=== PATIENT | female | born 1935 | race African-American/Black ===

== ENCOUNTER 2016-07-28 16:50 | Outpatient (CLI) ==
[2016-05-11 12:54] VITALS: BMI 26.9
[2016-07-28 17:12] LABS: BILIRUBIN,URINE 1+ (NEGATIVE); KETONES,URINE Negative (NEGATIVE); LEUKOCYTE ESTERASE ,URINE 1+ (NEGATIVE); NITRITE,URINE Negative (NEGATIVE); PROTEIN,URINE 1+ (NEGATIVE); URINE, BLOOD Negative (NEGATIVE)
[2016-07-28 17:14] LABS: ADD URINE MICROSCOPIC YES
[2016-07-28 17:15] LABS: BACTERIA,URINE TRACE (NOT PRESENT)
== END 2016-07-28 16:51 | disposition home or self-care (01) ==
LOC: LAB 16:50
PROVIDERS: ATTEND Emergency Medicine
DX: N39.0 Urinary tract infection, site not specified (principal); R41.0 Disorientation, unspecified
CPT/HCPCS: 81001; 87086

== ENCOUNTER 2016-09-04 21:35 | Observation (INO) | payer OTHER ==
[2016-09-04] MEDS ORDERED: SODIUM CHLORIDE 1,000 ML IV STA (21:38)
[2016-09-04 21:47] VITALS: BMI 27.1
[2016-09-04 22:11] LABS: BASOPHILS % (AUTO) 0.7 % (0.0-3.0); EOSINOPHILS # (AUTO) 0.1 K/ul (0.0-0.7); EOSINOPHILS % (AUTO) 1.8 % (0.0-7.0); HEMATOCRIT 36.5 % (37.0-47.0); HEMOGLOBIN 12.2 g/dl (12.0-16.0); LYMPHOCYTES # (AUTO) 0.9 K/uL (0.60-3.4); LYMPHOCYTES % (AUTO) 32.5 (10.0-50.0); MEAN CORPUSCULAR HEMOGLOBIN 33.5 pg (27.0-31.0); MEAN CORPUSCULAR HGB CONC 33.4 (31.8-35.4); MEAN CORPUSCULAR VOLUME 100.3 fl (81.0-99.0); MONOCYTES # (AUTO) 0.3 K/uL (0.4-2.0); MONOCYTES % (AUTO) 11.4 (0-10); NEUTROPHILS # (AUTO) 1.5 K/ul (2.0-6.9); NEUTROPHILS % (AUTO) 53.6; PLATELET COUNT 133 10^3/uL (140-440); RED BLOOD COUNT 3.64 10^6/ul (4.20-5.40)
[2016-09-04 22:19] LABS: BILIRUBIN,URINE Negative (NEGATIVE); KETONES,URINE Negative (NEGATIVE); LEUKOCYTE ESTERASE ,URINE Negative (NEGATIVE); NITRITE,URINE Negative (NEGATIVE); PROTEIN,URINE Negative (NEGATIVE); URINE, BLOOD Negative (NEGATIVE)
[2016-09-04 22:20] LABS: ADD URINE MICROSCOPIC NO
--- NOTE | 2016-09-04 22:29 | CT ---
EXAM: CT scan brain without contrast HISTORY: Encephalopathy COMPARISON: CT scan brain 05/11/2016 FINDINGS: Contiguous axial images obtained from the skull base to the convexities without contrast utilizing 5-mm collimation. Sagittal and coronal reconstructions were imaged and reviewed. The jeanette tricles and CSF spaces are prominent compatible with age appropriate atrophy. There is periventricu lar hypodensity noted compatible with chronic microvascular disease.. Encephalomalacia is seen with in the medial right occipital lobe. Several air cells are opacified posteriorly in the right ethmoi d sinus. IMPRESSION: Age appropriate atrophy with chronic microvascular disease. Benign sinus disease.
[2016-09-04 22:30] LABS: ALBUMIN 3.7 g/dL (3.4-5.0); ALBUMIN/GLOBULIN RATIO 1.37; ANION GAP 13.3; BILIRUBIN,TOTAL 2.75 mg/dL (0.00-1.20); BUN/CREATININE RATIO 10.69; CALCIUM 10.2 mg/dL (8.2-10.2); CREATININE 1.59 mg/dL (0.60-1.30); POTASSIUM 4.3 mmol/L (3.5-5.10); TOTAL PROTEIN 6.4 g/dL (5.8-8.1)
--- NOTE | 2016-09-04 22:38 | CT ---
EXAM: CT scan thorax without contrast HISTORY: Cough fever COMPARISON: CT scan thorax 02/12/2016 FINDINGS: Contiguous axial images obtained through the thorax without contrast utilizing 5-mm colli mation. Sagittal and coronal reconstructions were imaged and reviewed. The thoracic inlet is unrem arkable. The cardiac silhouette is enlarged without pericardial effusion. There is a dual lead pac emaker. There is no evidence of a pericardial effusion.. There is coronary artery calcification. There is a stable 6 mm nodule at the left lung base. There has been prior cholecystectomy.. Review of bone windows reveals degenerative changes in the mid lower thoracic spine. IMPRESSION: Cardiomegaly with coronary artery calcification. Stable small nodule left lung base. No evidence of infiltrate or effusion. Prior cholecystectomy
[2016-09-04 22:41] LABS: ABG BASE EXCESS 0 (-2.0-2.0); ABG HCO3 23.1 (22.0-26.0); ABG PCO2 30.6 mmHg (35-45); ABG PH 7.487 (7.35-7.45); ABG TCO2 24 (22.0-28.0)
[2016-09-04 22:57] LABS: TROPONIN I 0.207 ng/ml (0.0000-0.4000)
[2016-09-04 22:59] LABS: CREATINE KINASE MB 2.5 ng/ml (0.0-3.6)
--- NOTE | 2016-09-04 23:03 | ED.PDOC ---
General ED Provider: Dr. CORINNE CALLOWAY-ER Chief Complaint: Abdominal Pain Stated Complaint: shes is not eating or drinking--her belly hurts Time Seen by Physician: 21:40 Mode of Arrival: Wheelchair Information Source: Patient, Family Exam Limitations: No limitations Primary Care Provider: MARK WATSON Nursing and Triage Documentation Reviewed and Agree: Yes GI Complaint Exam - Abdominal Pain Complaint/Exam Onset: Gradual Duration: 24hrs Symptoms Are: Still present Timing: Constant Initial Severity: Mild Current Severity: Mild Location of Pain: Diffuse Character: Reports: Dull Aggravating: Reports: None Alleviating: Reports: Spontaneous resolution Associated Signs and Symptoms: Reports: Fever, Decreased urine output, Decreased appetite, Nausea. Denies: Diaphoresis, Cough, Chest pain, Dizziness, Back pain, Constipation, Blood in stool, Dysuria, Urinary frequency, Vaginal bleeding, Vaginal discharge, Vomiting, Diarrhea, Sore throat, Decreased activity Related Surgical History: Reports: Cholecystectomy Patient Rh Status: Unknown Abdominal Findings: Present: None Differential Diagnoses: Bowel Obstruction, Constipation, Diverticulitis, Pancreatitis, Ureteral Stone, UTI Quality Indicator For Non-Traumatic Chest Pain/Syncope: EKG Performed Review of Systems - Review Of Systems Constitutional: Reports: Fever Eyes: Reports: No symptoms Ears, Nose, Mouth, Throat: Reports: No symptoms Respiratory: Reports: No symptoms Cardiac: Reports: No symptoms GI: Reports: Abdominal pain, Nausea, Poor appetite, Poor fluid intake : Reports: No symptoms Musculoskeletal: Reports: No symptoms Skin: Reports: No symptoms Neurological: Reports: No symptoms Endocrine: Reports: No symptoms Hematologic/Lymphatic: Reports: No symptoms All Other Systems: Reviewed and Negative Past Medical History - Past Medical History Previously Healthy: No Endocrine: Reports: DM 2, Dyslipidemia Cardiovascular: Reports: CAD, [place], Hypertension, CHF, Other (12/10/15 seen at [facility]- noncardiac chest pain) Respiratory: Reports: None, COPD Hematological: Reports: Anemia Gastrointestinal: Reports: GERD Genitourinary: Reports: Kidney stones, CKD Neuro/Psych: Reports: None, Anxiety Musculoskeletal: Reports: Arthritis Cancer: Reports: None Last Menstrual Period: PT HAS HAD A HYSTERECTOMY Other Pertinent Past Medical History: NEUROPATHY,BORDERLINE DIABETES,WITH ACCU CHECKS DAILY - Surgical History General Surgical History: Reports: Hysterectomy, Cholecystectomy, Pacemaker ( PACEMAKER 1998 WITH BATTERY CHANGE X2 AT [facility], MOST RECENT IS FEBRUARY 2015), Orthopedic (left knee), Other (BILATEREAL CATARACT ) - Family History Family History: Reports: Unknown - Social History Smoking Status: Never smoker Hx Substance Use: No Alcohol Screening: None Lives: With family - Immunizations Tetanus Shot up to Date: (UNKNOWN) Physical Exam - Physical Exam Appearance: Well-appearing, No pain distress, Well-nourished Eyes: GERARDO ENT: Ears normal Respiratory: Airway patent Cardiovascular: RRR GI/: Soft Musculoskeletal: Normal strength, ROM intact, No edema, No calf tenderness Skin: Warm, Dry, Normal color Neurological: Sensation intact Psychiatric: Affect appropriate, Mood appropriate Interpretation - Radiology Interpretation Radiology Interpretation By: Radiologist Radiology Results: Negative Exam Interpreted: CT Scan - EKG Interpretation Time of EKG #1: 23:03 Rate: Normal Rhythm: Sinus Ectopy: None [place]: NL ST Segment: Normal Physician Notification - Case Discussed Physician Notified: dr duran Time of Notification: 23:07 Critical Care Note - Critical Care Note Total Time (mins): 0 Course - Course Hematology/Chemistry: 09/04/16 22:05 09/04/16 22:05 Orders, Labs, Meds: Lab Review 09/04/16 09/04/16 21:36 22:05 WBC 2.80 L RBC 3.64 L Hgb 12.2 Hct 36.5 L MCV 100.3 H MCH 33.5 H MCHC 33.4 RDW Coeff of Juan 14.1 Plt Count 133 L Immature Gran % (Auto) 0.0 Neut % (Auto) 53.6 Lymph % (Auto) 32.5 [place] % (Auto) 11.4 H Eos % (Auto) 1.8 Baso % (Auto) 0.7 Immature Gran # (Auto) 0.0 Neut # 1.5 L Lymph # 0.9 [place]enton # 0.3 L Eos # 0.1 Baso # 0.0 D-Dimer 0.82 Puncture Site Lb O2 Saturation 98.0 ABG pH 7.487 H ABG pCO2 30.6 L ABG pO2 93.0 ABG HCO3 23.1 ABG Total CO2 24 ABG Base Excess 0 Chon Test + FiO2 % 21.0 Sodium 143 Potassium 4.3 Chloride 109 H Carbon Dioxide 25 Anion Gap 13.3 BUN 17 Creatinine 1.59 H Estimated GFR (MDRD) 38.00 BUN/Creatinine Ratio 10.69 Glucose 90 Calcium 10.2 Total Bilirubin 2.75 H AST 36 ALT 24 Alkaline Phosphatase 155 H Ammonia 40 H Total Creatine Kinase 123 CK-MB (CK-2) 2.5 CK-MB (CK-2) % 2.68208 Troponin I 0.2070 Total Protein 6.4 Albumin 3.7 Globulin 2.7 Albumin/Globulin Ratio 1.37 Amylase 27 Lipase 12 Urine Color Yellow Urine Clarity Clear Urine pH 5.0 Ur Specific Crosby 1.015 Urine Protein Negative Urine Glucose (UA) Negative Urine Ketones Negative Urine Blood Negative Urine Nitrite Negative Urine Bilirubin Negative Urine Urobilinogen 0.2 Ur Leukocyte Esterase Negative Orders Category Date Time Status ABG DRAW REQUEST Stat CARDIO 09/04/16 21:37 Ordered EKG-(ED ONLY) Stat CARDIO 09/04/16 21:36 Ordered Assembly Loader [ED PATIENT SUPPORT PARTNER APPLIED] .ONCE EMERGENCY 09/04/16 21:39 Active IV [ED IV/MEDIPORT/POWERPORT] .ONCE EMERGENCY 09/04/16 21:38 Active ABG Stat LAB 09/04/16 21:36 Completed AMMONIA Stat LAB 09/04/16 22:05 Completed AMYLASE Stat LAB 09/04/16 22:05 Completed BLOOD CULTURE Stat LAB 09/04/16 22:05 Received CBC W/ AUTO DIFF Stat LAB 09/04/16 22:05 Completed COMPREHENSIVE METABOLIC PANEL Stat LAB 09/04/16 22:05 Completed CREATINE KINASE Stat LAB 09/04/16 22:05 Completed D-DIMER Stat LAB 09/04/16 22:05 Completed FLU A & B RAPID TEST [RAPID FLU A/B] Stat LAB 09/04/16 22:10 Ordered LIPASE Stat LAB 09/04/16 22:05 Completed TROPONIN I Stat LAB 09/04/16 22:05 Completed URINALYSIS C & S IF INDICATED Stat LAB 09/04/16 22:05 Completed VITAMIN B12 Stat LAB 09/04/16 22:15 Received 0.9 % Sodium Chloride [Saline Flush] MEDS 09/04/16 21:38 Ordered 1 syr IVF PRN PRN Sodium Chloride 0.9% [Sodium Chloride] 1,000 ml MEDS 09/04/16 21:38 Active IV 100 mls/hr CT ABDOMEN/PELVIS WO CONTRAST Stat RADS 09/04/16 21:[address] CHEST W/O CONTRAST Stat RADS 09/04/16 21:[address] HEAD W/O CONTRAST Stat RADS 09/04/16 21:38 Completed Medications Generic Name Dose Route Start Last Admin Trade Name Freq PRN Reason Stop Dose Admin Sodium Chloride 1,000 mls @ 100 mls/hr 09/04/16 21:38 09/04/16 22:46 Sodium Chloride IV 09/05/16 07:37 100 mls/hr .Q10H STA Administration Sodium Chloride 1 syr 09/04/16 21:38 09/04/16 22:47 Saline Flush IVF 1 syr PRN PRN Administration To flush IV Vital Signs: Temp Pulse Resp BP Pulse Ox 09/04/16 21:36 100 F H 72 20 102/58 L 98 Departure - Departure Time of Disposition: 23:07 Disposition: PLACED OBSERVATION Discharge Problem: Abdominal pain, Encephalopathy Fever Qualifiers: Fever type: due to other condition Qualifier Code: (R50.81) Fever presenting with conditions classified elsewhere Instructions: Fever in Adults (ED) Condition: Stable Pt referred to PMD for follow-up: Yes Allergies/Adverse Reactions: Allergies Penicillins Adverse Reaction (Verified 09/04/16 21:47) pneumococcal vaccine Adverse Reaction (Verified 09/04/16 21:48) flu vaccine Adverse Reaction (Unknown, Uncoded 09/04/16 21:47) Home Medications: Ambulatory Orders Alprazolam [Xanax] 0.25 mg PO BEDTIME 02/11/16 Cetirizine HCl [All Day Allergy] 10 mg PO BEDTIME 02/11/16 Clopidogrel Bisulfate [Clopidogrel] 75 mg PO DAILY 02/11/16 Ferrous Sulfate 325 mg PO BID 02/11/16 Furosemide [Lasix] 40 mg PO DAILY 02/11/16 Ipratropium/Albuterol Neb [Duoneb] 1 vial NEB RTQ4H PRN 02/11/16 Pantoprazole Sodium [Protonix] 40 mg PO BIDAC 02/11/16 Potassium Chloride [K-Dur] 20 meq PO QID 02/11/16 Rosuvastatin Calcium [Crestor] 10 mg PO BEDTIME 02/11/16 Sucralfate [Carafate] 1 gm PO ACHS 02/11/16 Aspirin [Aspirin EC] 81 mg PO DAILYWM 02/12/16 Nitroglycerin [Nitrostat] 0.3 mg SL PRN PRN 03/08/16 Triamterene/Hydrochlorothiazid [Maxzide 37.5 mg-25 mg Tablet] 1 each PO DAILY PRN 03/31/16 Hydrocodone/Acetaminophen [Robert 5-325 Tablet] 1 each PO BID 05/11/16 Lisinopril [Zestril] 2.5 mg PO DAILY #30 tablet 05/12/16 Calcium Carbonate/Vitamin D3 [Calcium 500-Vit D3 600 Tablet] 1 each PO WEEKLY Carvedilol 3.125 mg PO DAILY 09/04/16 Disposition Discussed With: Patient, Family
--- NOTE | 2016-09-04 23:06 | CT ---
EXAM: CT scan abdomen pelvis without contrast HISTORY: Abdominal pain COMPARISON: CT scan abdomen pelvis 03/16/2016 FINDINGS: Contiguous axial images obtained from lung bases to the symphysis pubis without contrast utilizing collimation. Sagittal coronal reconstructions were imaged and reviewed.. The heart is en larged with small pericardial effusion measuring 11 mm. There has been a prior cholecystectomy.. T he common bile duct measures 9.5 mm. The liver pancreas spleen and adrenal glands have normal unenh anced CT appearance. The kidneys are morphologically normal. Atherosclerotic changes are seen invo lving the aorta without aneurysm formation. Free fluid is seen in the dependent pelvis. . There is moderate anasarca. Degenerative changes are seen within the lower thoracic and lumbar spine with a chronic-appearing central depression superior endplate of L4. Impression: ASVD without aneurysm. Free fluid is seen in the dependent pelvis. Prior cholecystectomy. ASVD without aneurysm. Moderate anasarca.
[2016-09-04] MEDS ORDERED: TYLENOL PO PRN (23:08)
[2016-09-04] MEDS ORDERED: NON-FORMULARY MEDICATION (Nitroglycerin [Nitrostat] 0.3 MG) SL PRN ×22 (23:11)
[2016-09-04] MEDS ORDERED: IPRATROPIUM NEB PRN ×21 (23:11)
[2016-09-04] MEDS ORDERED: ALBUTEROL NEB PRN ×21 (23:11)
[2016-09-04 23:17] LABS: FLU INTERNAL QC INTERNAL QC VALID; RAPID FLU A NEGATIVE (NEGATIVE); RAPID FLU B NEGATIVE (NEGATIVE)
[2016-09-04] MEDS ORDERED: SODIUM CHLORIDE 1,000 ML IV SCH (23:30)
[2016-09-04] MEDS ORDERED: LEVAQUIN 250 MG in PREMIX 50 ML D5W 1 BAG IV SCH (23:30)
[2016-09-05] MEDS ORDERED: LEVAQUIN 50 ML IV ONE (01:00)
[2016-09-05] MEDS ORDERED: FLAGYL 500 MG/100 ML 100 ML IV ONE (04:10)
[2016-09-05] MEDS: FLAGYL 500 MG/100 ML 250 MG in PREMIX 100 ML NS 1 BAG IV SCH ×3 (04:14→21:56)
[2016-09-05] MEDS ORDERED: NON-FORMULARY MEDICATION (Pantoprazole Sodium [Protonix] 40 MG) PO SCH ×22 (06:30)
[2016-09-05] MEDS ORDERED: NON-FORMULARY MEDICATION (Sucralfate [Carafate] 1 GM) PO SCH (06:30)
[2016-09-05] MEDS ORDERED: FUROSEMIDE 40 MG PO SCH ×44 (06:30→09:00)
[2016-09-05] MEDS ORDERED: DUONEB NEB PRN (07:08)
[2016-09-05] MEDS ORDERED: ACETAMINOPHEN PO SCH (09:00)
[2016-09-05] MEDS ORDERED: NON-FORMULARY MEDICATION (Potassium Chloride [K-Dur] 20 MEQ) PO SCH ×22 (09:00)
[2016-09-05] MEDS ORDERED: CARVEDILOL 3.125 MG PO SCH (09:00)
[2016-09-05] MEDS ORDERED: HYDROCODONE PO SCH (09:00)
[2016-09-05] MEDS ORDERED: NON-FORMULARY MEDICATION (Clopidogrel Bisulfate [Clopidogrel] 75 MG) PO SCH ×22 (09:00)
[2016-09-05 09:57] LABS: BASOPHILS % (AUTO) 0.7 % (0.0-3.0); EOSINOPHILS # (AUTO) 0.1 K/ul (0.0-0.7); EOSINOPHILS % (AUTO) 3.4 % (0.0-7.0); HEMATOCRIT 32.7 % (37.0-47.0); LYMPHOCYTES % (AUTO) 34.8 (10.0-50.0); MEAN CORPUSCULAR HEMOGLOBIN 33.7 pg (27.0-31.0); MEAN CORPUSCULAR HGB CONC 33.6 (31.8-35.4); MEAN CORPUSCULAR VOLUME 100.3 fl (81.0-99.0); MONOCYTES # (AUTO) 0.4 K/uL (0.4-2.0); MONOCYTES % (AUTO) 13.1 (0-10); NEUTROPHILS # (AUTO) 1.4 K/ul (2.0-6.9); PLATELET COUNT 113 10^3/uL (140-440); RED BLOOD COUNT 3.26 10^6/ul (4.20-5.40)
[2016-09-05 10:15] LABS: ALBUMIN 3.1 g/dL (3.4-5.0); ALBUMIN/GLOBULIN RATIO 1.35; ANION GAP 12.8; BILIRUBIN,TOTAL 2.78 mg/dL (0.00-1.20); BUN/CREATININE RATIO 12.67; CALCIUM 9.4 mg/dL (8.2-10.2); CREATININE 1.42 mg/dL (0.60-1.30); POTASSIUM 3.8 mmol/L (3.5-5.10); TOTAL PROTEIN 5.4 g/dL (5.8-8.1)
[2016-09-05] MEDS: NON-FORMULARY MEDICATION (Lisinopril [Zestril] 2.5 MG) PO SCH ×22 (10:23)
[2016-09-05] MEDS: ASPIRIN EC PO SCH (10:25)
[2016-09-05] MEDS: K-DUR PO SCH ×4 (10:28→20:21)
[2016-09-05] MEDS: NON-FORMULARY MEDICATION (Ferrous Sulfate [Ferrous Sulfate] 325 MG) PO SCH ×44 (10:29→20:20)
[2016-09-05] MEDS: NORCO 5-325 PO SCH ×2 (10:30→20:19)
[2016-09-05] MEDS: PLAVIX PO SCH (10:32)
[2016-09-05] MEDS: COREG PO SCH (10:34)
[2016-09-05] MEDS: LOVENOX SUBCUT SCH (10:34)
[2016-09-05] MEDS: CARAFATE PO SCH ×3 (10:44→20:21)
[2016-09-05] MEDS ORDERED: SODIUM CHLORIDE 1,000 ML IV SCH (11:55)
[2016-09-05] MEDS ORDERED: ZOFRAN 4 MG/2 ML IVP PRN (15:54)
[2016-09-05] MEDS: PROTONIX PO SCH (16:52)
[2016-09-05] MEDS ORDERED: NON-FORMULARY MEDICATION (Rosuvastatin Calcium [Crestor] 10 MG) PO SCH ×22 (21:00)
[2016-09-05] MEDS ORDERED: XANAX PO SCH (21:00)
[2016-09-05] MEDS ORDERED: CRESTOR PO SCH (21:00)
[2016-09-05] MEDS ORDERED: ALPRAZOLAM 0.25 MG PO SCH ×22 (21:00)
[2016-09-05] MEDS ORDERED: LEVAQUIN 250 MG in PREMIX 50 ML D5W 1 BAG IV SCH (21:00)
[2016-09-06] MEDS: FLAGYL 500 MG/100 ML 250 MG in PREMIX 100 ML NS 1 BAG IV SCH ×2 (04:27→13:48)
[2016-09-06 05:28] LABS: BASOPHILS % (AUTO) 0.4 % (0.0-3.0); EOSINOPHILS # (AUTO) 0.1 K/ul (0.0-0.7); EOSINOPHILS % (AUTO) 2.3 % (0.0-7.0); HEMATOCRIT 34.1 % (37.0-47.0); HEMOGLOBIN 11.3 g/dl (12.0-16.0); IMMATURE GRANULOCYTE % (AUTO) 0.4 % (0.0-5.0); LYMPHOCYTES % (AUTO) 37.1 (10.0-50.0); MEAN CORPUSCULAR HEMOGLOBIN 33.3 pg (27.0-31.0); MEAN CORPUSCULAR HGB CONC 33.1 (31.8-35.4); MEAN CORPUSCULAR VOLUME 100.6 fl (81.0-99.0); MONOCYTES # (AUTO) 0.4 K/uL (0.4-2.0); NEUTROPHILS # (AUTO) 1.2 K/ul (2.0-6.9); NEUTROPHILS % (AUTO) 45.8; PLATELET COUNT 118 10^3/uL (140-440); RED BLOOD COUNT 3.39 10^6/ul (4.20-5.40); WHITE BLOOD COUNT 2.64 K/ul (4.6-10.2)
[2016-09-06] MEDS: PROTONIX PO SCH ×2 (05:32→17:57)
[2016-09-06] MEDS: CARAFATE PO SCH ×3 (05:33→17:57)
[2016-09-06 05:47] LABS: ALBUMIN/GLOBULIN RATIO 1.2; ANION GAP 9.5; BILIRUBIN,TOTAL 2.29 mg/dL (0.00-1.20); CALCIUM 9.3 mg/dL (8.2-10.2); CREATININE 1.4 mg/dL (0.60-1.30); POTASSIUM 4.5 mmol/L (3.5-5.10); TOTAL PROTEIN 5.5 g/dL (5.8-8.1)
[2016-09-06] MEDS ORDERED: LASIX TAB PO SCH (06:30)
[2016-09-06] MEDS: NORCO 5-325 PO SCH (08:50)
[2016-09-06] MEDS: LOVENOX SUBCUT SCH (08:51)
[2016-09-06] MEDS: ASPIRIN EC PO SCH (08:51)
[2016-09-06] MEDS: COREG PO SCH (08:51)
[2016-09-06] MEDS: K-DUR PO SCH ×3 (08:52→17:57)
[2016-09-06] MEDS: NON-FORMULARY MEDICATION (Ferrous Sulfate [Ferrous Sulfate] 325 MG) PO SCH ×22 (08:52)
[2016-09-06] MEDS: NON-FORMULARY MEDICATION (Lisinopril [Zestril] 2.5 MG) PO SCH ×22 (08:52)
[2016-09-06] MEDS: PLAVIX PO SCH (08:53)
[2016-09-06 14:46] VITALS: BP 110/62; TEMP 97.3
--- NOTE | 2016-09-09 10:53 | PN ---
DATE OF SERVICE: 09/05/16 SUBJECTIVE: The patient's daughter brought here. because the patient had a somewhat altered mental status also complaining of midabdominal pain around the naval area, also states has pain with the urination. The patient gets similar episodes when she gets a urinary tract infection. That is the reason the patient's daughter was worried and brought her to the emergency room for the evaluation. The patient is awake, alert and oriented. Just some weakness. She was seen by Dr. Stoner in the emergency room CT no acute findings, CT of abdominal and pelvis moderate anasarca but no acute findings. CT chest cardiomegaly with the coronary artery calcification, small nodules on the left lung base, no acute findings. Labs: Leukopenia, d-dimer is negative, ABG are fine, BUN and creatinine is normal, creatinine is mildly elevated which is normal for the patient with estimated GFR of 38. At that time the patient is admitted to the observation. REVIEW OF SYSTEMS: CONSTITUTIONAL: No night sweats. No fatigue, malaise, lethargy. No fever or chills. As of now the patient is awake and alert and says that she is feeling good. HEENT: Eyes: No visual changes. No eye pain. No eye discharge. ENT: No runny nose. No epistaxis. No sinus pain. No sore throat. No odynophagia. No ear pain. No congestion. RESPIRATORY: No cough, no congestion. No hemoptysis. CARDIOVASCULAR: No angina symptoms. No CHF symptoms. No atypical chest pain for CAD. No palpitations. No shortness of breath. GASTROINTESTINAL: No abdominal pain. No nausea or vomiting. No diarrhea or constipation. No hematemesis. No hematochezia. GENITOURINARY: No urgency. No frequency. No dysuria. No hematuria. No obstructive symptoms. No discharge. No pain. No significant abnormal bleeding. MUSCULOSKELETAL: No musculoskeletal pain. No joint swelling. No arthritis. NEUROLOGICAL: No headache. No neck pain. No syncope. No seizures. No dizziness. PSYCHIATRIC: Not anxious. No depression. No suicidal thoughts. No homicidal thoughts. SKIN: No rash. No lesions. No wounds. ENDOCRINE: No unexplained weight loss. No weight gain. HEMATOLOGIC/LYMPHATIC: No anemia. No purpura. No petechiae. No prolonged or excessive bleeding. No palpable lymph nodes. PHYSICAL EXAMINATION: VITAL SIGNS: Blood pressure 126/73, respiratory 16, heart rate 75 and temperature 97.8. HEENT: Head normocephalic, atraumatic. Eyes: Extraocular muscles are intact. Pupils are equal, round and reactive to light and accommodation. Ears: No lesions. Nose appeared normal. Throat: No exudate or erythema. NECK: Supple. No JVD, no carotid bruit. No lymphadenopathy or thyromegaly. LUNGS: Decreased and clear to auscultation. Percussion note normal. Chest symmetrical. HEART: S1, S2, no S3. No murmurs. No cyanosis or clubbing. No ascites. Pulses: Dorsalis pedis and posterior tibial pulses +1 to +2 both sides. ABDOMEN: Soft. Nontender. Bowel sounds active. No CVA tenderness. No mass felt. EXTREMITIES: 2+ edema but a lot of wrinkles are seen on the lower extremities. Full range of motion of all extremities, equal. NEUROLOGIC: No focal deficit. Cranial nerves II through XII are grossly intact. No headache, no double vision or headache. SKIN: Not dry. Intact. Turgor - normal. LYMPHATIC: No palpable lymph nodes/no lymphedema. MUSCULOSKELETAL: Normal joints with no swelling. Muscle tone is normal. LABS: Sodium 144, potassium 3.8, Chloride 110, bicarb 25, BUN 18, creatinine 1.42, WBC 2.90, hgb 11.0, hct 32.7 and plt count 113. ASSESSMENT: 1. Abdominal pain, non specific 2. Generalize weakness 3. Questionable viral illness with elevated monocytes 4. History of hypertension 5. Permanent pacemaker 6. Dependant edema 7. Diastolic heart failure PLAN: 1. Continue home medication 2. Continue IV fluids 3. Breathing treatments 4. Flagyl 5. IV fluids at 40ml per hour 6. Out of bed to chair activity as tolerated 7. Lovenox for the DVT Prophylaxis. Will follow the patient in daily rounds TIME SPENT: More than 70 minutes. SUDHIR
--- NOTE | 2016-09-09 15:06 | PN ---
DATE OF SERVICE: 09/06/16 SUBJECTIVE: The patient is admitted with the change in mental status and confusion and abdominal pain most likely looks like a viral episode otherwise patient is feeling better and no more abdominal pain, no more diarrhea, nausea or vomiting. She is sitting in the bed and not in any distress. REVIEW OF SYSTEMS: CONSTITUTIONAL: No fever, no chills. HEENT: Normal. ENDOCRINE: No weight gain, no weight loss. CVS: No angina symptoms. No CHF symptoms. No palpitations. No atypical chest pain for CAD. No shortness of breath. No PND, no orthopnea. RESPIRATORY: No cough, no hemoptysis. GI: No nausea, no vomiting. No abdominal pain. : No hematuria. No polyuria. MUSCULOSKELETAL:. No joint swelling. PSYCHIATRIC: Not anxious. No depression. No suicidal thoughts. No homicidal thoughts. SKIN: Intact. No rash. PHYSICAL EXAMINATION: V/S: Blood pressure 110/62, respiratory rate 16, heart rate 72 and temperature 97.3. HEENT: Normocephalic, atraumatic. Ears, eyes, nose and throat normal. Mucosa dry. Pallor positive. No icterus. NECK: Supple. No JVD, no carotid bruit. No lymphadenopathy. LUNGS: Bilateral entry is decreased and clear to auscultation. No rales or rhonchi. HEART: S1, S2 normal. No S3. No murmur, gallop or regurgitation. ABDOMEN: Soft, nontender. Bowel sounds active. No rigidity. No rebound or guarding. No CVA tenderness. EXTREMITIES: No clubbing, cyanosis. 1+ edema. MUSCULOSKELETAL: No joint swelling. NEUROLOGIC: Awake, alert, oriented times three. No focal deficit. LYMPHATIC: No lymph nodes palpable. SKIN: Intact. LABS: WBC 2.64, hgb 11.3, hct 34.1, plt count 118, sodium 141, potassium 4.5, chloride 110, bicarb 26, BUN 14 and creatinine 1.40. ASSESSMENT: 1. Abdominal pain 2. Viral syndrome 3. History of hypertension 4. Chronic kidney disease 5. Anemia 6. Hypertension 7. Coronary artery disease 8. Status post permanent pacemaker PLAN: 1. Discharge patient home 2. Keep the legs elevated when resting 3. No salt diet 4. No NSAID 5. Regular resume home activities TIME SPENT: More than 30 minutes MTDD
--- NOTE | 2016-10-06 15:15 | SSS ---
DATE OF SERVICE: 09/06/16 REASON FOR CONSULTATION/ADMISSION: Encephalopathy, abdominal pain and fever. HISTORY OF PRESENT ILLNESS: Onset gradual and present for 24 hours. REVIEW OF SYSTEMS: CONSTITUTIONAL: No night sweats. No fatigue, malaise, lethargy. Fever. HEENT: Eyes: No visual changes. No eye pain. No eye discharge. ENT: No runny nose. No epistaxis. No sinus pain. No sore throat. No odynophagia. No ear pain. No congestion. RESPIRATORY: No cough, no congestion. No hemoptysis. CARDIOVASCULAR: No angina symptoms. No CHF symptoms. No atypical chest pain for CAD. No palpitations. No shortness of breath. GASTROINTESTINAL: Abdominal pain. Nausea. No diarrhea or constipation. No hematemesis. No hematochezia. Poor appetite. Poor fluid intake. GENITOURINARY: No urgency. No frequency. No dysuria. No hematuria. No obstructive symptoms. No discharge. No pain. No significant abnormal bleeding. MUSCULOSKELETAL: No musculoskeletal pain. No joint swelling. NEUROLOGICAL: Awake, alert, oriented to time, place and person. No headache. No neck pain. No syncope. No seizures. No dizziness. PSYCHIATRIC: Not anxious. No depression. No suicidal thoughts. No homicidal thoughts. SKIN: No rash. No lesions. No wounds. ENDOCRINE: No unexplained weight loss. No weight gain. HEMATOLOGIC/LYMPHATIC: No anemia. No purpura. No petechiae. No prolonged or excessive bleeding. No palpable lymph nodes. PAST HISTORY: Diabetes Mellitus type 2 Dyslipidemia Coronary artery disease AMI Hypertension Congestive heart failure COPD Anemia GERD Chronic kidney disease Anxiety Status post cholecystectomy Status post hysterectomy Status post pacemaker Status post Total knee replacement, left. PERSONAL/FAMILY HISTORY/SOCIAL HISTORY: .Non-smoker. No alcohol use. Family assists and Homemaker five days a week- sitter at night. PHYSICAL EXAMINATION: VITAL SIGNS: Temperature 100, pulse 72, respiratory rate 20, blood pressure 102 /58, pulse ox 98% on room air; height 5'4 and weight 158. HEENT: Head normocephalic, atraumatic. Eyes: Extraocular muscles are intact. Pupils are equal, round and reactive to light and accommodation. Ears: No lesions. Nose appeared normal. Throat: No exudate or erythema. Pallor positive. NECK: Supple. No JVD, no carotid bruit. No lymphadenopathy or thyromegaly. LUNGS: Bilaterally equal and clear to auscultation. Percussion note normal. Chest symmetrical. HEART: S1, S2, no S3. No murmurs. No cyanosis or clubbing. No ascites. Pulses: Dorsalis pedis and posterior tibial pulses +1 to +2 both sides. ABDOMEN: Soft. Nontender. Bowel sounds active. No CVA tenderness. No mass felt. EXTREMITIES: No edema. Full range of motion of all extremities, equal. NEUROLOGIC: No focal deficit. Cranial nerves II through XII are grossly intact. No headache, no double vision or headache. Alert and oriented times three. SKIN: Not dry. Intact. Turgor - normal. LYMPHATIC: No palpable lymph nodes/no lymphedema. MUSCULOSKELETAL: Normal joints with no swelling. Muscle tone is normal. ALLERGIES: Penicillins Pneumococcal vaccine Flu vaccine MEDICATIONS: Carafate Xanax Zyrtec Plavix Iron DUO NEBS Protonix K-Dur Crestor Aspirin Nitro Maxzide [place] Zestril Coreg Calcium with Vitamin D LABS/EKG'S/X-RAY/ECHO/ABG: EKG sinus rhythm, CT head with contrast-age appropriate atrophy with chronic microvascular disease. CT thorax- no evidence of infiltrate/effusion PROGRESS NOTES: See EMR. DIAGNOSES: 1. Viral syndrome 2. Abdominal pain 3. Dependant edema 4. Chronic kidney disease 5. Increased Bilirubin 6. Coronary artery disease 7. Permanent Pacemaker RECOMMENDATIONS/PLAN: 1. No NSAIDS 2. Keep legs elevated when resting 3. Fall precautions 4. Follow up in office in one week. TIME SPENT: More than 70 minutes. MTDD
== END 2016-09-06 18:40 | disposition home or self-care (01) ==
LOC: ED 21:35 → MEDSURG A 23:12
PROVIDERS: ADMIT Emergency Medicine; ATTEND Emergency Medicine
DX: B34.9 Viral infection, unspecified (principal); R10.9 Unspecified abdominal pain; R50.81 Fever presenting with conditions classified elsewhere; R60.0 Localized edema; G93.40 Encephalopathy, unspecified; I50.30 Unspecified diastolic (congestive) heart failure; E11.9 Type 2 diabetes mellitus without complications; N18.9 Chronic kidney disease, unspecified; I10 Essential (primary) hypertension; I25.10 Atherosclerotic heart disease of native coronary artery without angina pectoris; D64.9 Anemia, unspecified; R79.89 Other specified abnormal findings of blood chemistry; I25.2 Old myocardial infarction; Z95.0 Presence of cardiac pacemaker; Z79.01 Long term (current) use of anticoagulants; Z79.899 Other long term (current) drug therapy
CPT/HCPCS: 36415; 80053; 81001; 82140; 82150; 82550; 82553; 82607; 82803; 83690; 84484; 85025; 85379; 87040; 87804; 93005; 93010; 96360; 96361; 96365; 96372; 96375; 96376; 99284

== ENCOUNTER 2016-10-08 11:17 | Outpatient (CLI) ==
[2016-10-08 15:20] LABS: BILIRUBIN,URINE Negative (NEGATIVE); KETONES,URINE Negative (NEGATIVE); LEUKOCYTE ESTERASE ,URINE Trace (NEGATIVE); NITRITE,URINE Negative (NEGATIVE); PROTEIN,URINE 1+ (NEGATIVE); URINE, BLOOD Negative (NEGATIVE)
[2016-10-08 15:46] LABS: ADD URINE MICROSCOPIC YES
== END 2016-10-08 11:18 | disposition home or self-care (01) ==
LOC: LAB 11:17
PROVIDERS: ATTEND Emergency Medicine
DX: N39.0 Urinary tract infection, site not specified (principal)
CPT/HCPCS: 81001; 87086

== ENCOUNTER 2016-10-09 15:57 | Emergency (ER) ==
[2016-10-09 16:05] VITALS: BP 91/56; TEMP 97.6; BMI 25.0
[2016-10-09 16:27] LABS: BASOPHILS % (AUTO) 0.6 % (0.0-3.0); EOSINOPHILS # (AUTO) 0.1 K/ul (0.0-0.7); EOSINOPHILS % (AUTO) 3.1 % (0.0-7.0); HEMOGLOBIN 11.2 g/dl (12.0-16.0); LYMPHOCYTES % (AUTO) 31.7 (10.0-50.0); MEAN CORPUSCULAR HEMOGLOBIN 33.1 pg (27.0-31.0); MEAN CORPUSCULAR HGB CONC 32.9 (31.8-35.4); MEAN CORPUSCULAR VOLUME 100.6 fl (81.0-99.0); MONOCYTES # (AUTO) 0.4 K/uL (0.4-2.0); MONOCYTES % (AUTO) 12.1 (0-10); NEUTROPHILS # (AUTO) 1.7 K/ul (2.0-6.9); NEUTROPHILS % (AUTO) 52.5; PLATELET COUNT 147 10^3/uL (140-440); RED BLOOD COUNT 3.38 10^6/ul (4.20-5.40); WHITE BLOOD COUNT 3.22 K/ul (4.6-10.2)
[2016-10-09 16:31] LABS: BILIRUBIN,URINE Negative (NEGATIVE); KETONES,URINE Negative (NEGATIVE); LEUKOCYTE ESTERASE ,URINE Negative (NEGATIVE); NITRITE,URINE Negative (NEGATIVE); PROTEIN,URINE Negative (NEGATIVE); URINE, BLOOD Negative (NEGATIVE)
[2016-10-09 16:33] LABS: ADD URINE MICROSCOPIC NO
[2016-10-09 16:40] LABS: ALBUMIN 3.2 g/dL (3.4-5.0); ALBUMIN/GLOBULIN RATIO 1.14; ANION GAP 10.6; BILIRUBIN,TOTAL 1.53 mg/dL (0.00-1.20); BUN/CREATININE RATIO 12.8; CALCIUM 9.8 mg/dL (8.2-10.2); CREATININE 1.64 mg/dL (0.60-1.30); POTASSIUM 4.6 mmol/L (3.5-5.10)
--- NOTE | 2016-10-09 16:46 | CT ---
EXAM: Noncontrast CT of the abdomen and pelvis. HISTORY: Abdominal pain. Suprapubic pain. COMPARISON: 09/04/2016 TECHNIQUE: Contiguous axial images at 3 mm intervals were obtained from lung bases through the pelv is. No contrast was given. Coronal reformats were reviewed. FINDINGS: The study is limited without contrast. CHEST: The lung bases show no lobar consolidation or effusion. Cardiac pacer wires are seen. Orly nary artery calcifications and aortic valve calcifications are seen.The heart size is within normal limits. ABDOMEN: Evaluation of the soft tissue organs is limited without contrast. LIVER: Noncontrast images of the liver show no solid mass lesion or intrahepatic ductal dilatation. BILIARY: The gallbladder is absent. There are clips in the gallbladder fossa. No fluid or inflamm ation is seen. The common bile duct is normal. SPLEEN: The spleen is unremarkable. PANCREAS: The pancreas shows no mass lesion or peripancreatic inflammation. ADRENAL GLANDS: The adrenal glands are normal. RENAL: The kidneys show no hydronephrosis or nephrolithiasis. There are no obstructing ureteral st ones. No solid mass lesions are identified. RETROPERITONEUM: The aorta is unopacified. No aneurysm is identified. Mild aortic calcifications are seen. There is no retroperitoneal or mesenteric adenopathy. There is stranding of the mesenteri c fat. No definite fluid collections are seen. There is no free air. BOWEL: The bowel is unopacified. There is no obstruction or inflammatory change. There is no free fluid or free air. No significant inflammatory changes are seen. A large amount of high density stool is seen in the colon. There is no significant diverticulosis or evidence of acute diverticuli tis. The appendix is not identified on the study. There is no fluid or inflammation in the right l ower quadrant. PELVIS: BLADDER: The bladder is well distended and appears normal. GENITOURINARY STRUCTURES: The uterus and ovaries are not seen. OSSEOUS STRUCTURES: There is mild loss of vertebral height at L4 which is unchanged in comparison t o the prior study. Degenerative disc disease is seen at all levels of the spine. IMPRESSION 1. Mild stranding of the mesenteric fat without adenopathy, fluid collections or ascites. No eviden ce of bowel obstruction. 2. Post cholecystectomy. 3. Atherosclerotic disease aorta. Coronary artery disease.
[2016-10-09] MEDS ORDERED: ROCEPHIN 1 GM in SODIUM CHLORIDE 100 ML IV STA (17:01)
--- NOTE | 2016-10-09 17:06 | ED.PDOC ---
General ED Provider: Dr. GISELA GONZALEZ Chief Complaint: Urinary Problem Stated Complaint: INCREASE URINATION, feeling weak, tired. daughter brought her for the evaluation for the UTI. Time Seen by Physician: 17:04 Mode of Arrival: Walk-In Information Source: Patient, Family Primary Care Provider: MARK WATSON Nursing and Triage Documentation Reviewed and Agree: Yes Complaint Exam - UTI Female Complaint/Exam Patient Complains of: Reports: Painful urination Symptoms Are: Still present Timing: Intermittent Initial Severity: Mild Current Severity: Mild Location of Pain: Reports: None Associated Signs and Symptoms: Denies: Fever, Chills, Flank pain, Dyspareunia, Vaginal discharge Related History: Reports: Similar episode Related Surgical History: Reports: None CVA Tenderness: No Suprapubic Tenderness: Yes Differential Diagnoses: Cystitis Review of Systems - Review Of Systems Constitutional: Reports: No symptoms Eyes: Reports: No symptoms Ears, Nose, Mouth, Throat: Reports: No symptoms Respiratory: Reports: No symptoms Cardiac: Reports: No symptoms GI: Reports: No symptoms : Reports: Burning, Dysuria Musculoskeletal: Reports: No symptoms Skin: Reports: No symptoms Neurological: Reports: No symptoms Endocrine: Reports: No symptoms Hematologic/Lymphatic: Reports: No symptoms All Other Systems: Reviewed and Negative Past Medical History - Past Medical History Previously Healthy: No Endocrine: Reports: DM 2, Dyslipidemia Cardiovascular: Reports: CAD, [place], Hypertension, CHF, Other (12/10/15 seen at [facility]- noncardiac chest pain) Respiratory: Reports: None, COPD Hematological: Reports: Anemia Gastrointestinal: Reports: GERD Genitourinary: Reports: Kidney stones, CKD Neuro/Psych: Reports: None, Anxiety Musculoskeletal: Reports: Arthritis Cancer: Reports: None Last Menstrual Period: n/a Other Pertinent Past Medical History: NEUROPATHY,BORDERLINE DIABETES,WITH ACCU CHECKS DAILY - Surgical History General Surgical History: Reports: Hysterectomy, Cholecystectomy, Pacemaker ( PACEMAKER 1998 WITH BATTERY CHANGE X2 AT [facility], [place], MOST RECENT IS FEBRUARY 2015), Orthopedic (left knee), Other (BILATEREAL CATARACT ) - Family History Family History: Reports: Unknown - Social History Smoking Status: Never smoker Hx Substance Use: No Alcohol Screening: None Physical Exam - Physical Exam Appearance: Well-appearing, No pain distress, Well-nourished Eyes: GERARDO, EOMI, Conjunctiva clear ENT: Ears normal, Nose normal, Oropharynx normal Respiratory: Airway patent, Breath sounds clear, Breath sounds equal, Respirations nonlabored Cardiovascular: RRR, Pulses normal, No rub, No murmur GI/: Soft, Nontender, No masses, Bowel sounds normal, No Organomegaly Musculoskeletal: Normal strength, ROM intact, No calf tenderness, Edema Skin: Warm, Dry, Normal color Neurological: Sensation intact, Motor intact, Reflexes intact, Cranial nerves intact, Alert, Oriented Psychiatric: Affect appropriate, Mood appropriate Interpretation - Radiology Interpretation Radiology Interpretation By: Radiologist Radiology Results: Negative Exam Interpreted: CT Scan Critical Care Note - Critical Care Note Total Time (mins): 0 Course - Course Hematology/Chemistry: 10/09/16 16:15 10/09/16 16:15 Orders, Labs, Meds: Lab Review 10/09/16 10/09/16 16:10 16:15 WBC 3.22 L RBC 3.38 L Hgb 11.2 L Hct 34.0 L MCV 100.6 H MCH 33.1 H MCHC 32.9 RDW Coeff of Juan 13.7 Plt Count 147 Immature Gran % (Auto) 0.0 Neut % (Auto) 52.5 Lymph % (Auto) 31.7 [place] % (Auto) 12.1 H Eos % (Auto) 3.1 Baso % (Auto) 0.6 Immature Gran # (Auto) 0.0 Neut # 1.7 L Lymph # 1.0 [place] # 0.4 Eos # 0.1 Baso # 0.0 Sodium 138 Potassium 4.6 Chloride 108 H Carbon Dioxide 24 Anion Gap 10.6 BUN 21 H Creatinine 1.64 H Estimated GFR (MDRD) 36.00 BUN/Creatinine Ratio 12.80 Glucose 85 Lactic Acid 12.4 Calcium 9.8 Total Bilirubin 1.53 H AST 38 H ALT 30 Alkaline Phosphatase 173 H Total Protein 6.0 Albumin 3.2 L Globulin 2.8 Albumin/Globulin Ratio 1.14 Urine Color Yellow Urine Clarity Clear Urine pH 5.0 Ur Specific [place] 1.010 Urine Protein Negative Urine Glucose (UA) Negative Urine Ketones Negative Urine Blood Negative Urine Nitrite Negative Urine Bilirubin Negative Urine Urobilinogen 0.2 Ur Leukocyte Esterase Negative Orders Category Date Time Status ED IV/MEDIPORT/POWERPORT .ONCE EMERGENCY 10/09/16 16:03 Active CBC W/ AUTO DIFF Stat LAB 10/09/16 16:15 Completed COMPREHENSIVE METABOLIC PANEL Stat LAB 10/09/16 16:15 Completed LACTIC ACID Stat LAB 10/09/16 16:15 Completed URINALYSIS C & S IF INDICATED Stat LAB 10/09/16 16:10 Completed 0.9 % Sodium Chloride [Saline Flush] MEDS 10/09/16 16:03 Ordered 1 syr IVF PRN PRN Ceftriaxone Sodium [Rocephin] MEDS 10/09/16 17:20 Discontinued 1 gm .ROUTE .STK-MED ONE Ceftriaxone Sodium [Rocephin] 1 gm MEDS 10/09/16 17:01 Active 0.9 % Sodium Chloride [Sodium Chloride] [address] ABDOMEN/PELVIS WO CONTRAST Stat RADS 10/09/16 16:03 Completed Medications Generic Name Dose Route Start Last Admin Trade Name Freq PRN Reason Stop Dose Admin Ceftriaxone Sodium 1 gm/ 100 mls @ 100 mls/hr 10/09/16 17:01 10/09/16 17:28 Sodium Chloride IV 10/09/16 18:00 100 mls/hr ONCE STA Administration Sodium Chloride 1 syr 10/09/16 16:03 10/09/16 17:29 Saline Flush IVF 1 syr PRN PRN Administration To flush IV Vital Signs: Temp Pulse Resp BP Pulse Ox 10/09/16 15:57 97.6 F 70 20 91/56 L 99 Departure - Departure Time of Disposition: 17:10 Disposition: HOME SELF-CARE Discharge Problem: Urinary symptoms Instructions: Urinary Tract Infection in Women (ED) Condition: Stable Pt referred to PMD for follow-up: Yes Additional Instructions: Increase hydration cipro 250 po bid x 7 days probiotics Prescriptions: Ciprofloxacin HCl [Cipro] 250 mg PO Q12HR #14 tablet Allergies/Adverse Reactions: Allergies Penicillins Adverse Reaction (Verified 10/09/16 16:02) pneumococcal vaccine Adverse Reaction (Verified 10/09/16 16:02) flu vaccine Adverse Reaction (Unknown, Uncoded 10/09/16 16:02) Home Medications: Ambulatory Orders Alprazolam [Xanax] 0.25 mg PO BEDTIME 02/11/16 Cetirizine HCl [All Day Allergy] 10 mg PO BEDTIME 02/11/16 Clopidogrel Bisulfate [Clopidogrel] 75 mg PO DAILY 02/11/16 Ferrous Sulfate 325 mg PO BID 02/11/16 Furosemide [Lasix] 40 mg PO DAILY 02/11/16 Ipratropium/Albuterol Neb [Duoneb] 1 vial NEB RTQ4H PRN 02/11/16 Pantoprazole Sodium [Protonix] 40 mg PO BIDAC 02/11/16 Potassium Chloride [K-Dur] 20 meq PO QID 02/11/16 Rosuvastatin Calcium [Crestor] 10 mg PO BEDTIME 02/11/16 Sucralfate [Carafate] 1 gm PO ACHS 02/11/16 Aspirin [Aspirin EC] 81 mg PO DAILYWM 02/12/16 Nitroglycerin [Nitrostat] 0.3 mg SL PRN PRN 03/08/16 Triamterene/Hydrochlorothiazid [Maxzide 37.5 mg-25 mg Tablet] 1 each PO DAILY PRN 03/31/16 Hydrocodone/Acetaminophen [[place] 5-325 Tablet] 1 each PO BID 05/11/16 Lisinopril [Zestril] 2.5 mg PO DAILY #30 tablet 05/12/16 Calcium Carbonate/Vitamin D3 [Calcium 500-Vit D3 600 Tablet] 1 each PO WEEKLY Carvedilol 3.125 mg PO DAILY 09/04/16 Ciprofloxacin HCl [Cipro] 250 mg PO Q12HR #14 tablet 10/09/16 Disposition Discussed With: Patient, Family
[2016-10-09] MEDS ORDERED: ROCEPHIN ONE (17:20)
== END 2016-10-09 18:17 | disposition home or self-care (01) ==
LOC: ED 15:57
DX: N39.0 Urinary tract infection, site not specified (principal); Z79.899 Other long term (current) drug therapy
CPT/HCPCS: 36415; 80053; 81001; 83605; 85025; 96365; 99283

== ENCOUNTER 2016-11-15 18:27 | Outpatient (CLI) ==
[2016-11-15 21:32] VITALS: BMI 23.7
== END 2016-11-15 18:28 ==
LOC: AMBL 18:27
PROVIDERS: ATTEND Emergency Medicine
DX: R41.0 Disorientation, unspecified (principal); F03.90 Unspecified dementia, unspecified severity, without behavioral disturbance, psychotic disturbance, mood disturbance, and anxiety

== ENCOUNTER 2016-11-15 18:36 | Inpatient (IN) ==
[2016-11-15] MEDS ORDERED: SODIUM CHLORIDE 1,000 ML IV STA (18:41)
[2016-11-15] MEDS ORDERED: URO-JET MUCOUSMEMB STA (18:42)
[2016-11-15] MEDS ORDERED: AZACTAM 1 GM in SODIUM CHLORIDE 50 ML IV STA (18:43)
[2016-11-15 19:14] LABS: FLU INTERNAL QC INTERNAL QC VALID; RAPID FLU A NEGATIVE (NEGATIVE); RAPID FLU B NEGATIVE (NEGATIVE)
[2016-11-15 19:19] LABS: BASOPHILS % (AUTO) 0.8 % (0.0-3.0); EOSINOPHILS # (AUTO) 0.1 K/ul (0.0-0.7); EOSINOPHILS % (AUTO) 2.1 % (0.0-7.0); HEMATOCRIT 34.7 % (37.0-47.0); HEMOGLOBIN 11.5 g/dl (12.0-16.0); IMMATURE GRANULOCYTE % (AUTO) 0.3 % (0.0-5.0); LYMPHOCYTES # (AUTO) 1.1 K/uL (0.60-3.4); LYMPHOCYTES % (AUTO) 28.5 (10.0-50.0); MEAN CORPUSCULAR HEMOGLOBIN 33.3 pg (27.0-31.0); MEAN CORPUSCULAR HGB CONC 33.1 (31.8-35.4); MEAN CORPUSCULAR VOLUME 100.6 fl (81.0-99.0); MONOCYTES # (AUTO) 0.5 K/uL (0.4-2.0); MONOCYTES % (AUTO) 12.3 (0-10); NEUTROPHILS # (AUTO) 2.2 K/ul (2.0-6.9); PLATELET COUNT 164 10^3/uL (140-440); RED BLOOD COUNT 3.45 10^6/ul (4.20-5.40)
[2016-11-15] MEDS ORDERED: AZACTAM ONE (19:32)
--- NOTE | 2016-11-15 19:34 | CT ---
EXAM: CT of the head without contrast. HISTORY: Change in mentation.. COMPARISON: 09/04/2016 TECHNIQUE: Contiguous axial images at 5 mm intervals were obtained from the base of the skull to th e vertex the calvarium. No contrast was given. FINDINGS: The CSF containing spaces are diffusely enlarged consistent with atrophy. Cavum septum p ellucidum is noted. There are no extraaxial fluid collections. There is no evidence of an acute in tracranial hemorrhage. There are no masses or mass effect. Hypodensities are seen in the periventr icular white matter consistent with chronic ischemic changes from small vessel disease. There is new hypodensity in the left parietal lobe, posterior to the sylvian fissure. This was not seen on prev ious study. Carotid artery and vertebral artery calcifications are seen. The osseous structures a re normal. The extracranial soft tissues are otherwise unremarkable. IMPRESSION: 1. New asymmetric hypodensity in the left lateral lobe, just posterior to the sylvian fissure. Fin dings suggest ischemic changes. Correlate with history for signs of acute stroke related to this are a. Consider follow-up MRI if clinically indicated. 2. Chronic age-related changes.
[2016-11-15 19:37] LABS: BILIRUBIN,URINE NEGATIVE (NEGATIVE); KETONES,URINE NEGATIVE (NEGATIVE); NITRITE,URINE NEGATIVE (NEGATIVE); PROTEIN,URINE NEGATIVE (NEGATIVE); URINE, BLOOD NEGATIVE (NEGATIVE)
--- NOTE | 2016-11-15 19:37 | CT ---
EXAM: CT of the chest without contrast. HISTORY: Fever. PROCEDURE: Contiguous axial CT images of the chest without contrast with coronal and sagittal refor mats. FINDINGS: The heart is enlarged. The thoracic aorta is within normal limits in diameter. There is a two lead automatic implantable cardiac defibrillator. No infiltrate or consolidation. There are d egenerative changes in the spine. Impression: Cardiomegaly.
[2016-11-15 19:38] LABS: ADD URINE MICROSCOPIC NO; LEUKOCYTE ESTERASE ,URINE NEGATIVE (NEGATIVE)
[2016-11-15 19:39] LABS: ALBUMIN 3.4 g/dL (3.4-5.0); ALBUMIN/GLOBULIN RATIO 1.21; ANION GAP 13.4; BILIRUBIN,TOTAL 1.71 mg/dL (0.00-1.20); BUN/CREATININE RATIO 14.81; CREATININE 1.62 mg/dL (0.60-1.30); POTASSIUM 4.4 mmol/L (3.5-5.10); TOTAL PROTEIN 6.2 g/dL (5.8-8.1)
--- NOTE | 2016-11-15 19:43 | CT ---
EXAM: CT of the abdomen and pelvis without contrast. HISTORY: Fever. PROCEDURE: Contiguous axial CT images of the abdomen and pelvis without contrast with coronal and s agittal reformats. FINDINGS: Comparison made with CT of 10/09/2016. The liver is normal in appearance. The gallbladder is surgically absent. The pancreas, spleen, adrenal glands and kidneys are normal in appearance. The abdominal aorta is within normal limits in diameter. The appendix is not visualized. The other visualized loops of bowel are normal in appearance. No free fluid or free air in the abdomen or pelv is. The bladder is adequately filled with no abnormality identified. There are degenerative change s in the spine. There is a chronic L4 compression fracture. Impression: No acute findings in the abdomen or pelvis. Cholecystectomy. Chronic L4 compression fracture.
[2016-11-15 19:54] LABS: ERYTHROCYTE SEDIMENTATION RATE 18 mm/hr (0-20); ESR INTERNAL QC INTERNAL QC VALID
--- NOTE | 2016-11-15 20:06 | ED.PDOC ---
General ED Provider: Dr. CORINNE CALLOWAY-ER Chief Complaint: Altered Mental Status Stated Complaint: she is acting more confused--she also has a fever Time Seen by Physician: 18:40 Mode of Arrival: Ambulance Information Source: Patient, EMT Exam Limitations: No limitations Primary Care Provider: MARK WINTERS Nursing and Triage Documentation Reviewed and Agree: Yes Neurological Complaint Exam - Altered Mental Status Complaint/Exam Current Mental Status: Confusion, Agitation Onset: Gradual Symptoms Are: Still present Timing: Constant Episodes Lasting: Days Initial Severity: Mild Current Severity: Mild Eye Deviation Present: No Character: Reports: Confusion, Agitation, Responsiveness Aggravating: Reports: None Alleviating: Reports: None Associated Signs and Symptoms: Reports: Fever Related History: Reports: Similar episode Cardiac Risk Factors: Reports: None CVA Risk Factors: Reports: None Carotid Bruit Present: No Nystagmus Present: No Gag Reflex Present: Yes Meningeal Signs Positive: No Focal Weakness: Present: None Focal Sensory Loss: Present: None Gait: Normal [id number]: Normal Findings Romberg Test Positive: No Babinski Sign: Negative Right, Negative Left Signs of Injury: Present: Normal findings Thrombolytics Considered: No Differential Diagnoses: Metabolic Disorder, Sepsis Review of Systems - Review Of Systems Constitutional: Reports: Fever Eyes: Reports: No symptoms Ears, Nose, Mouth, Throat: Reports: No symptoms Respiratory: Reports: No symptoms Cardiac: Reports: No symptoms GI: Reports: No symptoms : Reports: No symptoms Musculoskeletal: Reports: No symptoms Skin: Reports: No symptoms Neurological: Reports: Cognitive dysfunction Endocrine: Reports: No symptoms Hematologic/Lymphatic: Reports: No symptoms All Other Systems: Reviewed and Negative Past Medical History - Past Medical History Previously Healthy: No Endocrine: Reports: DM 2, Dyslipidemia Cardiovascular: Reports: CAD, CT, Hypertension, CHF, Other (12/10/15 seen at [facility], [place]- noncardiac chest pain) Respiratory: Reports: None, COPD Hematological: Reports: Anemia Gastrointestinal: Reports: GERD Genitourinary: Reports: Kidney stones, CKD Neuro/Psych: Reports: None, Anxiety Musculoskeletal: Reports: Arthritis Cancer: Reports: None Last Menstrual Period: N/A Other Pertinent Past Medical History: NEUROPATHY,BORDERLINE DIABETES,WITH ACCU CHECKS DAILY - Surgical History General Surgical History: Reports: Hysterectomy, Cholecystectomy, Pacemaker ( PACEMAKER 1998 WITH BATTERY CHANGE X2 AT [facility], MOST RECENT IS FEBRUARY 2015), Orthopedic (left knee), Other (BILATEREAL CATARACT ) - Family History Family History: Reports: Unknown - Social History Smoking Status: Never smoker Hx Substance Use: No Alcohol Screening: None Lives: With family Physical Exam - Physical Exam Appearance: Well-appearing, No pain distress, Well-nourished Eyes: GERARDO, EOMI, Conjunctiva clear ENT: Ears normal, Nose normal, Oropharynx normal Neck: Supple Respiratory: Airway patent Cardiovascular: RRR GI/: Soft Musculoskeletal: Normal strength, ROM intact, No edema, No calf tenderness Skin: Warm Neurological: Sensation intact, Motor intact, Reflexes intact, Cranial nerves intact, Alert, Oriented Psychiatric: Affect appropriate, Mood appropriate Interpretation - Radiology Interpretation Radiology Interpretation By: Radiologist Radiology Results: Negative Exam Interpreted: CT Scan - EKG Interpretation Time of EKG #1: 20:06 Rate: Normal Rhythm: Sinus Ectopy: None Osgood: NL ST Segment: Normal Physician Notification - Case Discussed Physician Notified: dr winters Time of Notification: 20:06 Critical Care Note - Critical Care Note Total Time (mins): 0 Course - Course Hematology/Chemistry: 11/15/16 19:10 11/15/16 19:10 Orders, Labs, Meds: Lab Review 11/15/16 11/15/16 11/15/16 18:46 19:10 19:23 WBC 3.90 L RBC 3.45 L Hgb 11.5 L Hct 34.7 L MCV 100.6 H MCH 33.3 H MCHC 33.1 RDW Coeff of Juan 14.0 Plt Count 164 Immature Gran % (Auto) 0.3 Neut % (Auto) 56.0 Lymph % (Auto) 28.5 [place] % (Auto) 12.3 H Eos % (Auto) 2.1 Baso % (Auto) 0.8 Immature Gran # (Auto) 0.0 Neut # 2.2 Lymph # 1.1 [place] # 0.5 Eos # 0.1 Baso # 0.0 ESR 18 Sodium 141 Potassium 4.4 Chloride 108 H Carbon Dioxide 24 Anion Gap 13.4 BUN 24 H Creatinine 1.62 H Estimated GFR (MDRD) 37.00 BUN/Creatinine Ratio 14.81 Glucose 132 H Lactic Acid 12.1 Calcium 10.0 Total Bilirubin 1.71 H AST 49 H ALT 47 Alkaline Phosphatase 174 H Total Protein 6.2 Albumin 3.4 Globulin 2.8 Albumin/Globulin Ratio 1.21 Procalcitonin 0.44 Urine Color Yellow Urine Clarity Clear Urine pH 5.0 Ur Specific [place] 1.010 Urine Protein Negative Urine Glucose (UA) Negative Urine Ketones Negative Urine Blood Negative Urine Nitrite Negative Urine Bilirubin Negative Urine Urobilinogen 0.2 Ur Leukocyte Esterase Negative Influenza A (Rapid) Negative Influenza B (Rapid) Negative Orders Category Date Time Status EKG-(ED ONLY) Stat CARDIO 11/15/16 18:40 Completed [place] [ED CATHETER INSERTION AND CARE] .ONCE EMERGENCY 11/15/16 18:42 Active IV [ED IV/MEDIPORT/POWERPORT] .ONCE EMERGENCY 11/15/16 18:41 Active BLOOD CULTURE Stat LAB 11/15/16 19:10 Received CBC W/ AUTO DIFF Stat LAB 11/15/16 19:10 Completed COMPREHENSIVE METABOLIC PANEL Stat LAB 11/15/16 19:10 Completed ESR Stat LAB 11/15/16 19:10 Completed LACTIC ACID Stat LAB 11/15/16 19:10 Completed PROCALCITONIN Stat LAB 11/15/16 19:10 Completed RAPID FLU A/B Stat LAB 11/15/16 18:46 Completed URINALYSIS C & S IF INDICATED Stat LAB 11/15/16 19:23 Completed 0.9 % Sodium Chloride [Saline Flush] MEDS 11/15/16 18:41 Ordered 1 syr IVF PRN PRN Aztreonam [Azactam] MEDS 11/15/16 19:32 Discontinued 1 gm .ROUTE .STK-MED ONE Aztreonam [Azactam] 1 gm MEDS 11/15/16 18:43 Discontinued 0.9 % Sodium Chloride [Sodium Chloride] 50 ml IV ONCE Lidocaine HCl [Uro-Jet] MEDS 11/15/16 18:42 Discontinued 10 ml [id number] ONCE STA Sodium Chloride 0.9% [Sodium Chloride] 1,000 ml MEDS 11/15/16 18:41 Active IV 100 mls/hr CT ABDOMEN/PELVIS WO CONTRAST Stat RADS 11/15/16 18:[address] CHEST W/O CONTRAST Stat RADS 11/15/16 18:[address] HEAD W/O CONTRAST Stat RADS 11/15/16 18:42 Completed Medications Generic Name Dose Route Start Last Admin Trade Name Freq PRN Reason Stop Dose Admin Sodium Chloride 1,000 mls @ 100 mls/hr 11/15/16 18:41 11/15/16 19:47 Sodium Chloride IV 11/16/16 04:40 100 mls/hr .Q10H STA Administration Sodium Chloride 1 syr 11/15/16 18:41 Saline Flush IVF PRN PRN To flush IV Discontinued Medications Generic Name Dose Route Start Last Admin Trade Name Freq PRN Reason Stop Dose Admin Aztreonam 1 gm/ Sodium 50 mls @ 75 mls/hr 11/15/16 18:43 11/15/16 19:47 Chloride IV 11/15/16 19:22 75 mls/hr ONCE STA Administration Lidocaine HCl 10 ml 11/15/16 18:42 11/15/16 19:48 Uro-Jet [id number] 11/15/16 18:43 Not Given ONCE STA Vital Signs: Temp Pulse Resp BP Pulse Ox 11/15/16 18:38 100.0 F H 79 16 103/62 100 Departure - Departure Time of Disposition: 20:07 Disposition: ADMITTED INPATIENT Discharge Problem: Altered mental status Fever Qualifiers: Fever type: due to other condition Qualifier Code: (R50.81) Fever presenting with conditions classified elsewhere Instructions: Altered Mental Status (ED) Condition: Good Pt referred to PMD for follow-up: Yes Allergies/Adverse Reactions: Allergies Penicillins Adverse Reaction (Verified 11/15/16 18:47) pneumococcal vaccine Adverse Reaction (Verified 11/15/16 18:47) flu vaccine Adverse Reaction (Unknown, Uncoded 11/15/16 18:47) Home Medications: Ambulatory Orders Alprazolam [Xanax] 0.25 mg PO BEDTIME 02/11/16 Cetirizine HCl [All Day Allergy] 10 mg PO BEDTIME 02/11/16 Clopidogrel Bisulfate [Clopidogrel] 75 mg PO DAILY 02/11/16 Ferrous Sulfate 325 mg PO BID 02/11/16 Furosemide [Lasix] 40 mg PO DAILY 02/11/16 Ipratropium/Albuterol Neb [Duoneb] 1 vial NEB RTQ4H PRN 02/11/16 Pantoprazole Sodium [Protonix] 40 mg PO BIDAC 02/11/16 Potassium Chloride [K-Dur] 20 meq PO QID 02/11/16 Rosuvastatin Calcium [Crestor] 10 mg PO BEDTIME 02/11/16 Sucralfate [Carafate] 1 gm PO ACHS 02/11/16 Aspirin [Aspirin EC] 81 mg PO DAILYWM 02/12/16 Nitroglycerin [Nitrostat] 0.3 mg SL PRN PRN 03/08/16 Triamterene/Hydrochlorothiazid [Maxzide 37.5 mg-25 mg Tablet] 1 each PO DAILY PRN 03/31/16 Hydrocodone/Acetaminophen [[place] 5-325 Tablet] 1 each PO BID 05/11/16 Lisinopril [Zestril] 2.5 mg PO DAILY #30 tablet 05/12/16 Calcium Carbonate/Vitamin D3 [Calcium 500-Vit D3 600 Tablet] 1 each PO WEEKLY Carvedilol 3.125 mg PO DAILY 09/04/16 Alprazolam [Xanax] 0.5 mg PO PRN PRN 11/15/16 Memantine HCl 10 mg PO BID 11/15/16 Disposition Discussed With: Patient, Family
[2016-11-15] MEDS ORDERED: DUONEB NEB PRN (20:13)
[2016-11-15] MEDS ORDERED: NON-FORMULARY MEDICATION (Nitroglycerin [Nitrostat] 0.3 MG) SL PRN ×22 (20:13)
[2016-11-15] MEDS ORDERED: NON-FORMULARY MEDICATION (Ferrous Sulfate [Ferrous Sulfate] 325 MG) PO SCH ×22 (21:00)
[2016-11-15] MEDS: AZACTAM 1 GM in SODIUM CHLORIDE 50 ML IV SCH (21:15)
[2016-11-15 21:32] VITALS: BMI 23.7
[2016-11-15] MEDS: CARAFATE PO SCH (23:25)
[2016-11-15] MEDS: CRESTOR PO SCH (23:26)
[2016-11-15] MEDS: K-DUR PO SCH (23:27)
[2016-11-15] MEDS: NAMENDA PO SCH (23:27)
[2016-11-15] MEDS: SODIUM CHLORIDE 1,000 ML IV SCH (23:28)
[2016-11-15] MEDS: XANAX PO SCH (23:28)
[2016-11-16 05:13] LABS: BASOPHILS % (AUTO) 0.9 % (0.0-3.0); EOSINOPHILS # (AUTO) 0.1 K/ul (0.0-0.7); EOSINOPHILS % (AUTO) 2.2 % (0.0-7.0); HEMATOCRIT 32.2 % (37.0-47.0); HEMOGLOBIN 10.7 g/dl (12.0-16.0); IMMATURE GRANULOCYTE % (AUTO) 0.3 % (0.0-5.0); LYMPHOCYTES # (AUTO) 1.1 K/uL (0.60-3.4); LYMPHOCYTES % (AUTO) 36.1 (10.0-50.0); MEAN CORPUSCULAR HEMOGLOBIN 33.2 pg (27.0-31.0); MEAN CORPUSCULAR HGB CONC 33.2 (31.8-35.4); MONOCYTES # (AUTO) 0.4 K/uL (0.4-2.0); MONOCYTES % (AUTO) 11.7 (0-10); NEUTROPHILS # (AUTO) 1.5 K/ul (2.0-6.9); NEUTROPHILS % (AUTO) 48.8; PLATELET COUNT 147 10^3/uL (140-440); RED BLOOD COUNT 3.22 10^6/ul (4.20-5.40); WHITE BLOOD COUNT 3.16 K/ul (4.6-10.2)
[2016-11-16 05:38] LABS: ALBUMIN/GLOBULIN RATIO 1.25; BILIRUBIN,TOTAL 1.72 mg/dL (0.00-1.20); BUN/CREATININE RATIO 14.68; CALCIUM 9.4 mg/dL (8.2-10.2); CREATININE 1.43 mg/dL (0.60-1.30); TOTAL PROTEIN 5.4 g/dL (5.8-8.1)
[2016-11-16] MEDS: CARAFATE PO SCH ×4 (05:39→20:34)
[2016-11-16] MEDS ORDERED: NITROSTAT SL PRN (07:10)
[2016-11-16] MEDS: ASPIRIN EC PO SCH (08:35)
[2016-11-16] MEDS: CALCIUM 500 + VIT D 200 MG TABLET PO SCH (08:36)
[2016-11-16] MEDS: FERROUS SULFATE PO SCH ×2 (08:37→20:34)
[2016-11-16] MEDS: COREG PO SCH (08:37)
[2016-11-16] MEDS: K-DUR PO SCH ×4 (08:37→20:34)
[2016-11-16] MEDS: LOVENOX SUBCUT SCH (08:38)
[2016-11-16] MEDS: LASIX TAB PO SCH (08:38)
[2016-11-16] MEDS: NAMENDA PO SCH ×2 (08:38→22:49)
[2016-11-16] MEDS: NORCO 5-325 PO SCH ×3 (08:39→20:35)
[2016-11-16] MEDS: ZESTRIL PO SCH (08:39)
[2016-11-16] MEDS: PLAVIX PO SCH (08:39)
[2016-11-16] MEDS ORDERED: NON-FORMULARY MEDICATION (Lisinopril [Zestril] 2.5 MG) PO SCH ×22 (09:00)
[2016-11-16] MEDS: AZACTAM 1 GM in SODIUM CHLORIDE 50 ML IV SCH ×2 (09:18→20:35)
--- NOTE | 2016-11-16 09:29 | PN ---
DATE OF SERVICE: 11/15/16 ADMIT NOTE SUBJECTIVE: The patient is an 81 year old white female was brought to the emergency room by the family because of patient's increased agitation and restlessness with advancement in dementia. The patient was seen and examined in the emergency room by ER attending and I was called about it. The patient was also running fever of 100. There was no immediate source of infection was found but the patient was hospitalized for further investigation with antibiotics and blood cultures. The patient had responded to the Xanax with numbness in the emergency room. REVIEW OF SYSTEMS: CONSTITUTIONAL: No night sweats. No fatigue, malaise, lethargy. No fever or chills. HEENT: Eyes: No visual changes. No eye pain. No eye discharge. ENT: No runny nose. No epistaxis. No sinus pain. No sore throat. No odynophagia. No congestion. RESPIRATORY: No cough, no congestion. No hemoptysis. CARDIOVASCULAR: No angina symptoms. No CHF symptoms. No atypical chest pain for CAD. No palpitations. No shortness of breath. GASTROINTESTINAL: No abdominal pain. No nausea or vomiting. No diarrhea or constipation. No hematemesis. No hematochezia. GENITOURINARY: No urgency. No frequency. No dysuria. No hematuria. No obstructive symptoms. No discharge. No pain. No significant abnormal bleeding. MUSCULOSKELETAL: No musculoskeletal pain; no joint swelling. NEUROLOGICAL: No headache. No neck pain. No syncope. No seizures. No dizziness. PSYCHIATRIC: Not anxious. No depression. No suicidal thoughts. No homicidal thoughts. SKIN: No rash. No lesions. No wounds. ENDOCRINE: No unexplained weight loss. No weight gain. HEMATOLOGIC/LYMPHATIC: No anemia. No purpura. No petechiae. No prolonged or excessive bleeding. No palpable lymph nodes. PHYSICAL EXAMINATION: GENERAL: The patient is more confused. VITAL SIGNS: Temperature 100, pulse 79, blood pressure 103/62, respiratory rate 16 and pulse ox 100. HEENT: Head normocephalic, atraumatic. Eyes: Extraocular muscles are intact. Pupils are equal, round and reactive to light and accommodation. Ears: No lesions. Nose appeared normal. Throat: No exudate or erythema. NECK: Supple. No JVD, no carotid bruit. No lymphadenopathy or thyromegaly. LUNGS: Clear to auscultation. Percussion note normal. Chest symmetrical. HEART: S1, S2, no S3. No murmurs. No cyanosis or clubbing. No ascites. Pulses: Dorsalis pedis and posterior tibial pulses +1 to +2 both sides. Normal cardiovascular status. ABDOMEN: Soft. Nontender. Bowel sounds active. No CVA tenderness. No mass felt. EXTREMITIES: No edema. Full range of motion of all extremities, equal. NEUROLOGIC: No focal deficit. Cranial nerves II through XII are grossly intact. No headache, no double vision or headache. SKIN: Not dry. Intact. Turgor - normal. LYMPHATIC: No palpable lymph nodes/no lymphedema. MUSCULOSKELETAL: Normal joints with no swelling. Muscle tone is normal. LABS: The patient's CT scan of the chest and head and abdomen are negative. ASSESSMENT: 1. Agitation 2. Dementia 3. Anemia 4. Chronic lungs 5. Congestive heart failure. 6. Chronic kidney disease 7. Hypoglycemia PLAN: 1. The patient's family has almost decided for the patient to be put in the penitentiary, this was discussed with the family member by Dr. Sevilla but now they have come to terms with it. The daughter wants her to be in the penitentiary. 2. T4, TSH 3. Mini Mental Exam 4. MRI of brain with contrast. CONDITION AT TIME OF ADMISSION: Stable TIME SPENT: More than 30 minutes. Plan and coordination of the patient's care discussed in the presence of nurse. SUDHIR
--- NOTE | 2016-11-16 10:25 | PCM.PROG ---
Attending Provider: ATTENDING PROVIDER: Dr. MARK WATSON DATE OF SERVICE: 11/16/16 SUBJECTIVE: This 81 year old BLACK/ F was hospitalized 11/15/16. The patient is hospitalized with agitation, change in mental status and fever of 100 , cause unknown at that time. According to the ER physician, CT scan was normal along with CT scan of chest. During the CT scan it does show abnormality in the parietal area, will do MRI with contrast if possible. The patient knows today is Tuesday and is moving all extremities. She has no complaint of headache, no aches or pain at all. REVIEW OF SYSTEMS: CONSTITUTIONAL: No night sweats. No fatigue, malaise, lethargy. No fever or chills. HEENT: Eyes: No visual changes. No eye pain. No eye discharge. ENT: No runny nose. No epistaxis. No sinus pain. No odynophagia. No congestion. RESPIRATORY: No cough, no congestion. No hemoptysis. CARDIOVASCULAR: No angina symptoms. No CHF symptoms. No atypical chest pain for CAD. No palpitations. No shortness of breath. GASTROINTESTINAL: The patient states she feels hungry. No abdominal pain. No nausea or vomiting. No diarrhea or constipation. No hematemesis. No hematochezia. GENITOURINARY: No urgency. No frequency. No dysuria. No hematuria. No obstructive symptoms. No discharge. No pain. No significant abnormal bleeding. MUSCULOSKELETAL: No musculoskeletal pain; no joint swelling. NEUROLOGICAL: Sleepy, confused. No headache. No neck pain. No syncope. No seizures. No dizziness. PSYCHIATRIC: Not anxious. No depression. No suicidal thoughts. No homicidal thoughts. SKIN: No rash. No lesions. No wounds. ENDOCRINE: No unexplained weight loss. No weight gain. HEMATOLOGIC/LYMPHATIC: No anemia. No purpura. No petechiae. No prolonged or excessive bleeding. No palpable lymph nodes. PHYSICAL EXAMINATION: GENERAL: The patient is sleepy and confused, lying in bed in no distress. VITAL SIGNS: Temperature 97.0 F, Pulse 84, Respiratory Rate 16, BP 109/70, Pulse Ox 100% HEENT: Head normocephalic, atraumatic. Eyes: Extraocular muscles are intact. Pupils are equal, round and reactive to light and accommodation. Ears: No lesions. Nose appeared normal. Throat: No exudate or erythema. NECK: Supple. No JVD, no carotid bruit. No lymphadenopathy or thyromegaly. LUNGS: Decreased breath sounds. Clear to auscultation. Percussion note normal. Chest symmetrical. HEART: S1, S2, no S3. No murmurs. No cyanosis or clubbing. No ascites. Pulses: Dorsalis pedis and posterior tibial pulses +1 to +2 both sides. ABDOMEN: Soft. Non-tender. Bowel sounds active. No CVA tenderness. No mass felt. EXTREMITIES: No edema. Full range of motion of all extremities, equal. NEUROLOGIC: No focal deficit. Cranial nerves II through XII are grossly intact. No headache, no double vision or headache. SKIN: Not dry. Intact. Turgor-normal. LYMPHATIC: No palpable lymph nodes/no lymphedema. MUSCULOSKELETAL: Normal joints with no swelling. Muscle tone is normal. LAB REVIEW: 11/16/16 05:12 11/16/16 05:12 11/16/16 05:12: WBC 3.16 L, RBC 3.22 L, Hgb 10.7 L, Hct 32.2 L, MCV 100.0 H, MCH 33.2 H, MCHC 33.2, RDW Coeff of Juan 13.7, Plt Count 147, Immature Gran % ( Auto) 0.3, Neut % (Auto) 48.8, Lymph % (Auto) 36.1, [place] % (Auto) 11.7 H, Eos % (Auto) 2.2, Baso % (Auto) 0.9, Immature Gran # (Auto) 0.0, Neut # 1.5 L, Lymph # 1.1, [place] # 0.4, Eos # 0.1, Baso # 0.0, Sodium 142, Potassium 4.0, Chloride 110 H, Carbon Dioxide 25, Anion Gap 11.0, BUN 21 H, Creatinine 1.43 H, Estimated GFR (MDRD) 42.00, BUN/Creatinine Ratio 14.68, Glucose 68 L D, Calcium 9.4, Total Bilirubin 1.72 H, AST 38 H, ALT 39, Alkaline Phosphatase 151 H, Total Protein 5.4 L, Albumin 3.0 L, Globulin 2.4, Albumin/Globulin Ratio 1.25 ASSESSMENT: 1. Agitation 2. Dementia 3. Aggressive behavior - at the present time acting normal. Abnormal CT scan. 4. Anemia 5. Chronic kidney disease 6. Coronary artery disease 7. CHF 8. Hypoglycemia PLAN: 1. The family is thinking of halfway placement 2. T4, TSH 3. Mini Mental Exam 4. MRI of brain with contrast Plan and coordination of the patient's care discussed in the presence of Batch Mixing Truck Driver and nurse. CONDITION: Stable SCRIBED BY: GABE SALINAS Parole Hearing Officer scribed while in presence of service performed by Dr. MARK WATSON on 11/16/16 ([id number])
--- NOTE | 2016-11-16 14:47 | US ---
EXAM: Bilateral carotid artery Doppler History: Mental status changes. Comparison: Carotid Doppler 05/12/2016 Technique: Multiple sonographic images through the bilateral internal carotid arteries were obtaine d. Color duplex Doppler was used to interrogate vascular flow. Findings: The right ICA peak systolic velocity is within normal limits measuring 0.80 meters per second. The right ICA/cca PSV ratio is normal at 1.2. The right vertebral artery is patent and demonstrates ant egrade flow. Dee scale images demonstrate mild to moderate plaque buildup within the carotid bulb and right internal carotid artery. The left ICA peak systolic velocity is within normal limits measuring 0.60 meters per second. The l eft ICA/cca PSV ratio is normal at 0.80. The left vertebral artery is patent and demonstrates anteg rade flow. Dee scale images demonstrate mild to moderate plaque buildup within the left internal c arotid artery. Impression: No significant hemodynamic stenosis of the bilateral internal carotid arteries.
[2016-11-16] MEDS: CRESTOR PO SCH (20:34)
[2016-11-16] MEDS: XANAX PO PRN (20:35)
[2016-11-16] MEDS: XANAX PO SCH (20:35)
[2016-11-16] MEDS: SODIUM CHLORIDE 1,000 ML IV SCH (21:47)
[2016-11-17 04:51] LABS: BASOPHILS % (AUTO) 0.8 % (0.0-3.0); EOSINOPHILS # (AUTO) 0.1 K/ul (0.0-0.7); EOSINOPHILS % (AUTO) 1.6 % (0.0-7.0); HEMATOCRIT 33.3 % (37.0-47.0); IMMATURE GRANULOCYTE % (AUTO) 0.3 % (0.0-5.0); LYMPHOCYTES # (AUTO) 1.2 K/uL (0.60-3.4); LYMPHOCYTES % (AUTO) 33.3 (10.0-50.0); MEAN CORPUSCULAR HEMOGLOBIN 33.1 pg (27.0-31.0); MEAN CORPUSCULAR VOLUME 100.3 fl (81.0-99.0); MONOCYTES # (AUTO) 0.5 K/uL (0.4-2.0); MONOCYTES % (AUTO) 12.3 (0-10); NEUTROPHILS # (AUTO) 1.9 K/ul (2.0-6.9); NEUTROPHILS % (AUTO) 51.7; PLATELET COUNT 136 10^3/uL (140-440); RED BLOOD COUNT 3.32 10^6/ul (4.20-5.40); WHITE BLOOD COUNT 3.66 K/ul (4.6-10.2)
[2016-11-17 05:20] LABS: ALBUMIN 2.9 g/dL (3.4-5.0); ALBUMIN/GLOBULIN RATIO 1.16; ANION GAP 11.5; BILIRUBIN,TOTAL 1.37 mg/dL (0.00-1.20); BUN/CREATININE RATIO 12.03; CALCIUM 9.1 mg/dL (8.2-10.2); CREATININE 1.33 mg/dL (0.60-1.30); POTASSIUM 4.5 mmol/L (3.5-5.10); TOTAL PROTEIN 5.4 g/dL (5.8-8.1)
[2016-11-17] MEDS: CARAFATE PO SCH ×4 (06:33→20:29)
[2016-11-17] MEDS: LASIX TAB PO SCH (06:33)
[2016-11-17] MEDS: LOVENOX SUBCUT SCH (08:51)
[2016-11-17] MEDS: AZACTAM 1 GM in SODIUM CHLORIDE 50 ML IV SCH (08:51)
[2016-11-17] MEDS: NORCO 5-325 PO SCH ×2 (08:52→20:07)
[2016-11-17] MEDS: ZESTRIL PO SCH (08:52)
[2016-11-17] MEDS: FERROUS SULFATE PO SCH ×2 (08:52→20:07)
[2016-11-17] MEDS: K-DUR PO SCH ×4 (08:52→20:07)
[2016-11-17] MEDS: PLAVIX PO SCH (08:53)
[2016-11-17] MEDS: CALCIUM 500 + VIT D 200 MG TABLET PO SCH (08:53)
[2016-11-17] MEDS: NAMENDA PO SCH ×2 (08:53→20:07)
[2016-11-17] MEDS: ASPIRIN EC PO SCH (08:54)
[2016-11-17] MEDS: COREG PO SCH (08:54)
--- NOTE | 2016-11-17 10:11 | HP ---
DATE OF SERVICE: 11/15/16 REASON FOR HOSPITALIZATION/HISTORY OF PRESENT ILLNESS: The patient is an 81 year old white female was brought to the emergency room by the family because of patient's increased agitation and restlessness with advancement in dementia. The patient was seen and examined in the emergency room by ER attending and I was called about it. The patient was also running fever of 100. There was no immediate source of infection was found but the patient was hospitalized for further investigation with antibiotics and blood cultures. The patient had responded to the Xanax with numbness in the emergency room. REVIEW OF SYSTEMS: CONSTITUTIONAL: No night sweats. No fatigue, malaise, lethargy. No fever or chills. HEENT: Eyes: No visual changes. No eye pain. No eye discharge. ENT: No runny nose. No epistaxis. No sinus pain. No sore throat. No odynophagia. No congestion. RESPIRATORY: No cough, no congestion. No hemoptysis. CARDIOVASCULAR: No angina symptoms. No CHF symptoms. No atypical chest pain for CAD. No palpitations. No shortness of breath. GASTROINTESTINAL: No abdominal pain. No nausea or vomiting. No diarrhea or constipation. No hematemesis. No hematochezia. GENITOURINARY: No urgency. No frequency. No dysuria. No hematuria. No obstructive symptoms. No discharge. No pain. No significant abnormal bleeding. MUSCULOSKELETAL: No musculoskeletal pain; no joint swelling. NEUROLOGICAL: No headache. No neck pain. No syncope. No seizures. No dizziness. PSYCHIATRIC: Not anxious. No depression. No suicidal thoughts. No homicidal thoughts. SKIN: No rash. No lesions. No wounds. ENDOCRINE: No unexplained weight loss. No weight gain. HEMATOLOGIC/LYMPHATIC: No anemia. No purpura. No petechiae. No prolonged or excessive bleeding. No palpable lymph nodes. ALLERGIES: Penicillin Pneumococcal vaccine Flu Vaccine PERSONAL/FAMILY/SOCIAL HISTORY: The patient is and lives with the daughter. No smoking and no alcohol abuse. The patient is able to do some activity of daily living like feeding herself, walking, taking care of putting on clothes but needs help in bathing. MEDICATIONS: Xanax 0.25mg PO bedtime Clopidogrel 75mg PO daily Ferrous sulfate 325mg PO twice a day Lasix 40mg PO daily DUO NEB 1 vial Nebs Q 4 hours Protonix 40mg PO twice a day K-dur 20meq four times a day Crestor 10mg PO daily Carafate 1gram PO HS Aspirin 81mg PO daily Nitrostat 0.3 SL PRN Maxzide 37.5-325 PO daily Arthur 5-325mg PO twice a day Zestril 2.5mg PO daily Carvedilol 3.125mg daily Xanax 0.5mg PRN Zyrtec 10mg PO at bedtime Namenda 10mg PO twice a day MEDICAL/SURGICAL HISTORY: History of congestive heart failure Coronary artery disease TIA Chronic lung disease Chronic reflux, gastroesophageal reflux disease Dyslipidemia Hypertension Generalized osteoarthritis Dementia with Dyslipidemia PHYSICAL EXAMINATION: GENERAL: The patient is more confused. VITAL SIGNS: Temperature 100, pulse 79, blood pressure 103/62, respiratory rate 16 and pulse ox 100. HEENT: Head normocephalic, atraumatic. Eyes: Extraocular muscles are intact. Pupils are equal, round and reactive to light and accommodation. Ears: No lesions. Nose appeared normal. Throat: No exudate or erythema. NECK: Supple. No JVD, no carotid bruit. No lymphadenopathy or thyromegaly. LUNGS: Clear to auscultation. Percussion note normal. Chest symmetrical. HEART: S1, S2, no S3. No murmurs. No cyanosis or clubbing. No ascites. Pulses: Dorsalis pedis and posterior tibial pulses +1 to +2 both sides. Normal cardiovascular status. ABDOMEN: Soft. Nontender. Bowel sounds active. No CVA tenderness. No mass felt. EXTREMITIES: No edema. Full range of motion of all extremities, equal. NEUROLOGIC: No focal deficit. Cranial nerves II through XII are grossly intact. No headache, no double vision or headache. SKIN: Not dry. Intact. Turgor - normal. LYMPHATIC: No palpable lymph nodes/no lymphedema. MUSCULOSKELETAL: Normal joints with no swelling. Muscle tone is normal. LABS: The patient had CMP which showed creatinine 1.6, BUN 24, potassium 4.4, SGOT was mildly elevated. Lactic acid normal. Procalcitonin normal, hgb 11.5, hct 34 , WBC 3,900, MCV 100. U/A normal. Rapid Flu A and B negative. CT of the abdomen and pelvis showed cholecystectomy and chronic L1 fracture. CT of the chest cardiomegaly, pacemaker noted. CT of the head new asymmetric hypodensity in the left later lobe could be ischemic changes, MRI is not possible because of patient's pacemaker. ASSESSMENT: 1. Aggressive behavior 2. Dementia, worsening. 3. Flu type of symptoms with fever etiology unknown 4. Dilated cardiomyopathy 5. Coronary artery disease 6. Chronic lung disease 7. Anemia 8. Chronic kidney disease 9. Hypertension 10. Dyslipidemia 11. Anxiety syndrome 12. Possibility to stroke, involving left lateral lobe 13. Pacemaker 14. Cholecystectomy 15. Chronic L4 compression fracture. PLAN: 1. Continue Arthur 5-325mg twice a day for pain 2. DUO NEBS 3. Continue Xanax 4. Continue enteric coated aspirin 5. Continue Coreg 3.125 PO daily 6. Plavix to be continued 7. Lovenox 30mg SUBCUT daily 8. Lasix 40mg PO daily 9. IV fluids 1,000cc 40cc per hour 10.Aztreonam 1gram Q 12hours 11. Namenda 10mg PO twice a day 12. Ferrous Sulfate 325mg PO twice a day 13. Nitroglycerin PRN 14. Crestor 10mg PO daily 15. Carafate 1 gram PO at HS Since family has shown the interest in placing the patient in the care home the conversation for placing the patient in the care home with Dr. Sevilla before but now they patient's family is ready. TIME SPENT: More than 70 minutes. SUDHIR
--- NOTE | 2016-11-17 10:18 | PCM.PROG ---
Attending Provider: ATTENDING PROVIDER: Dr. MARK WATSON DATE OF SERVICE: 11/17/16 SUBJECTIVE: This 81 year old BLACK/ F was hospitalized 11/15/16. The patient was hospitalized with agitation and altered mental status. Incidentally , the patient had abnormal CT scan raising the possibility of ischemic event. Unable to confirm with MRI due to abnormal kidney test and pacemaker. The patient is moving all extremities. Mental status is much better, seems to be oriented to person. Kidneys are better. The daughter is in the room and states that the patient had been confused, out of the house knocking on the neighbor's door. After discussion with the daughter she is in agreement for penitentiary placement. REVIEW OF SYSTEMS: CONSTITUTIONAL: No night sweats. No fatigue, malaise, lethargy. No fever or chills. HEENT: Eyes: No visual changes. No eye pain. No eye discharge. ENT: No runny nose. No epistaxis. No sinus pain. No odynophagia. No congestion. RESPIRATORY: No cough, no congestion. No hemoptysis. CARDIOVASCULAR: No angina symptoms. No CHF symptoms. No atypical chest pain for CAD. No palpitations. No shortness of breath. GASTROINTESTINAL: No abdominal pain. No nausea or vomiting. No diarrhea or constipation. No hematemesis. No hematochezia. GENITOURINARY: No urgency. No frequency. No dysuria. No hematuria. No obstructive symptoms. No discharge. No pain. No significant abnormal bleeding. MUSCULOSKELETAL: No musculoskeletal pain; no joint swelling. NEUROLOGICAL: Awake, alert, oriented to time, place and person. No headache. No neck pain. No syncope. No seizures. No dizziness. PSYCHIATRIC: Not anxious. No depression. No suicidal thoughts. No homicidal thoughts. SKIN: No rash. No lesions. No wounds. ENDOCRINE: No unexplained weight loss. No weight gain. HEMATOLOGIC/LYMPHATIC: No anemia. No purpura. No petechiae. No prolonged or excessive bleeding. No palpable lymph nodes. PHYSICAL EXAMINATION: GENERAL: The patient is awake, alert and oriented, lying in bed in no distress. VITAL SIGNS: Temperature 97.9 F, Pulse 70, Respiratory Rate 16, BP 107/63, Pulse Ox 97% HEENT: Head normocephalic, atraumatic. Eyes: Extraocular muscles are intact. Pupils are equal, round and reactive to light and accommodation. Ears: No lesions. Nose appeared normal. Throat: No exudate or erythema. NECK: Supple. No JVD, no carotid bruit. No lymphadenopathy or thyromegaly. LUNGS: Decreased air entry. Clear to auscultation. Percussion note normal. Chest symmetrical. HEART: S1, S2, no S3. No murmurs. No cyanosis or clubbing. No ascites. Pulses: Dorsalis pedis and posterior tibial pulses +1 to +2 both sides. ABDOMEN: Soft. Non-tender. Bowel sounds active. No CVA tenderness. No mass felt. EXTREMITIES: No edema. Full range of motion of all extremities, equal. NEUROLOGIC: No focal deficit. Cranial nerves II through XII are grossly intact. No headache, no double vision or headache. SKIN: Not dry. Intact. Turgor-normal. LYMPHATIC: No palpable lymph nodes/no lymphedema. MUSCULOSKELETAL: Normal joints with no swelling. Muscle tone is normal. LAB REVIEW: 11/17/16 04:30 11/17/16 04:30 11/17/16 04:30: WBC 3.66 L, RBC 3.32 L, Hgb 11.0 L, Hct 33.3 L, MCV 100.3 H, MCH 33.1 H, MCHC 33.0, RDW Coeff of Juan 13.6, Plt Count 136 L, Immature Gran % ( Auto) 0.3, Neut % (Auto) 51.7, Lymph % (Auto) 33.3, [place] % (Auto) 12.3 H, Eos % (Auto) 1.6, Baso % (Auto) 0.8, Immature Gran # (Auto) 0.0, Neut # 1.9 L, Lymph # 1.2, [place] # 0.5, Eos # 0.1, Baso # 0.0, Sodium 142, Potassium 4.5, Chloride 111 H, Carbon Dioxide 24, Anion Gap 11.5, BUN 16, Creatinine 1.33 H, Estimated GFR (MDRD) 46.00, BUN/Creatinine Ratio 12.03, Glucose 79 L, Calcium 9.1, Total Bilirubin 1.37 H, AST 36, ALT 36, Alkaline Phosphatase 158 H, Total Protein 5.4 L, Albumin 2.9 L, Globulin 2.5, Albumin/Globulin Ratio 1.16 11/16/16 09:25: Hemoglobin A1c 4.8, TSH 1.890, Free T4 0.86 ASSESSMENT: 1. Dementia 2. Ischemic cerebrovascular disease 3. CHF with dilated cardiomyopthy 4. CAD 5. Pacemaker 6. Status post cholecystectomy 7. Compression fracture one vertebra in the back 8. Chronic anemia 9. Hypertension 10. Dyslipidemia PLAN: 1. Send to penitentiary for PT ambulation 2. Continue same treatment 3. Carotid scan negative Plan and coordination of the patient's care discussed in the presence of Impregnator Helper and nurse. CONDITION: Stable SCRIBED BY: GABE SALINAS Celery Packer scribed while in presence of service performed by Dr. MARK WATSON on 11/17/16 ([id number])
[2016-11-17] MEDS: XANAX PO PRN (12:18)
[2016-11-17] MEDS: CRESTOR PO SCH (20:07)
[2016-11-17] MEDS: XANAX PO SCH (20:07)
[2016-11-17] MEDS: CIPRO PO SCH (20:07)
[2016-11-17] MEDS: SODIUM CHLORIDE 1,000 ML IV SCH (22:30)
[2016-11-18] MEDS ORDERED: NORCO 5-325 PO STA (00:46)
[2016-11-18] MEDS: XANAX PO PRN ×3 (00:47→23:13)
[2016-11-18 05:18] LABS: BASOPHILS # (AUTO) 0.1 K/uL (0-0.2); BASOPHILS % (AUTO) 1.1 % (0.0-3.0); EOSINOPHILS # (AUTO) 0.1 K/ul (0.0-0.7); EOSINOPHILS % (AUTO) 2.3 % (0.0-7.0); HEMATOCRIT 35.5 % (37.0-47.0); HEMOGLOBIN 11.7 g/dl (12.0-16.0); IMMATURE GRANULOCYTE % (AUTO) 0.2 % (0.0-5.0); LYMPHOCYTES # (AUTO) 1.4 K/uL (0.60-3.4); LYMPHOCYTES % (AUTO) 30.4 (10.0-50.0); MEAN CORPUSCULAR HEMOGLOBIN 33.2 pg (27.0-31.0); MEAN CORPUSCULAR VOLUME 100.9 fl (81.0-99.0); MONOCYTES # (AUTO) 0.5 K/uL (0.4-2.0); MONOCYTES % (AUTO) 9.9 (0-10); NEUTROPHILS # (AUTO) 2.7 K/ul (2.0-6.9); NEUTROPHILS % (AUTO) 56.1; PLATELET COUNT 147 10^3/uL (140-440); RED BLOOD COUNT 3.52 10^6/ul (4.20-5.40); WHITE BLOOD COUNT 4.73 K/ul (4.6-10.2)
[2016-11-18 05:44] LABS: ALBUMIN/GLOBULIN RATIO 1.15; ANION GAP 11.1; BILIRUBIN,TOTAL 1.59 mg/dL (0.00-1.20); BUN/CREATININE RATIO 12.74; CALCIUM 9.1 mg/dL (8.2-10.2); CREATININE 1.02 mg/dL (0.60-1.30); POTASSIUM 4.1 mmol/L (3.5-5.10); TOTAL PROTEIN 5.6 g/dL (5.8-8.1)
[2016-11-18] MEDS: CIPRO PO SCH ×2 (06:22→21:31)
[2016-11-18] MEDS: LASIX TAB PO SCH (06:22)
[2016-11-18] MEDS: CARAFATE PO SCH ×4 (06:22→21:30)
[2016-11-18] MEDS: NAMENDA PO SCH ×2 (08:15→21:30)
[2016-11-18] MEDS: K-DUR PO SCH ×4 (08:15→21:30)
[2016-11-18] MEDS: CALCIUM 500 + VIT D 200 MG TABLET PO SCH (08:15)
[2016-11-18] MEDS: COREG PO SCH (08:15)
[2016-11-18] MEDS: ASPIRIN EC PO SCH (08:15)
[2016-11-18] MEDS: ZESTRIL PO SCH (08:15)
[2016-11-18] MEDS: FERROUS SULFATE PO SCH ×2 (08:16→21:31)
[2016-11-18] MEDS: PLAVIX PO SCH (08:16)
[2016-11-18] MEDS: LOVENOX SUBCUT SCH (08:16)
[2016-11-18] MEDS: NORCO 5-325 PO SCH ×2 (08:28→21:30)
--- NOTE | 2016-11-18 09:17 | CT ---
EXAM: CT head with contrast HISTORY: Mental status changes COMPARISON: CT head 11/15/2016 and numerous priors TECHNIQUE: Serial axial images of the brain were obtained from the skull base to the vertex with IV contrast. 100 ml Visipaque 320 IV contrast was utilized for this examination. FINDINGS: The ventricles, cisterns and sulci are unchanged with cavum septum pellucidum present.. The aden-white matter junction is maintained. There is hypodensity scattered throughout the periven tricular white matter. The area of low attenuation described posterior to the left parietal lobe on prior CT is unchanged. There is no contrast enhancing nodule or mass.No midline shift or mass is i dentified. There is no abnormal intra or extra-axial fluid collection. The paranasal sinuses demon strates scattered mucosal thickening. The mastoid air cells are clear. The osseous calvarium is in tact. The visualized vessels are unremarkable. IMPRESSION: 1. No acute abnormality or contrast enhancing lesion. 2. Scattered low attenuation throughout the periventricular white matter with unchanged appearance of mild low attenuation near the left parietal lobe. If there is concern for acute stroke, MRI may be obtained. 3. No change in chronic microangiopathy. 4. Mild paranasal sinus disease, stable since previous exam.
--- NOTE | 2016-11-18 10:45 | RS.BEDDYS ---
Subjective Number of treatment sessions: 1 Date of Evaluation: 11/18/16 Date of Onset/Injury/Change in Status: 11/15/16 Treatment Diagnosis: Altered mental status, dehydration Prior Level of Function.....Patient was independent with: ADL's (Pt fed self, completed dressing, and walked without assistance.), Caregiving (Pt required assistance for bathing.) Current Level of Function: This 81 year old female was admitted to the hospital due to mental status change and fever. Pt lived with daughter in the home environment and was independent with ADLs, except assistance with bathing. Pt has a hx of GERD, dementia, and TIA. Pt has no hx of swallowing difficulty or s/ s of aspiration. Current Diet: mechanical soft with thin liquids. Current Subjective/complaints:: Prior to CHARGING MANIPULATOR evaluation this date, pt reported complaints of swallowing difficulty, sensation to reguritate with any PO intake , and actively reguritated medications and meal. Pt reported this date of improved symptoms, and verbalized appetite for a.m. meal. CHARGING MANIPULATOR noted pt with symptoms characterized as a CVA including, visual perception deficits, perseverations, impulsivity, emotional outbursts and tearful interactions, decreased awareness and reasoning skills, language difficulty with semantic paraphasias and disorganized syntax structure. Medical History Comments:: DM II, dyslipidemia, CAD, HTN, CHF, COPD, GERD, anxiety, arthritis, pacemaker, dementia, hx of TIA. Hx Home Medications: Refer to medications for complete current list. Medication changes noted since admission to hospital. Patient's Goals: Pt reports she wants to get strong and go home, but pt also verbalizes awareness to go to rehab to build strength. CHARGING MANIPULATOR to determine safest and least restrictive diet texture. General Information - General Denture Type: Full- Upper & Lower Patient Orientation: Person, Place Ability to Follow Directions: Fair (Pt requires moderate/max cues to maintain attention and decrease impulsivity.) Is Patient able to Repeat Directions?: No Oral Expression Ability: Mild Impairment (Semantic paraphasias and word recalling difficulty.) Oral-Facial Assessment - Face Facial Symmetry: Right Droop Facial Movement: Controlled Face Comment: Limited sensation on right side - Dental/Labial Lip Protrusion: Weak Lip Retraction: Droops Right Puff Cheeks: Reduced Strength Lips Comment: poor labial seal and control with PO intake. - Lingual Protrusion: Weak Retraction: Weak Tip Lateralization: Discoordination Repeated Tip Lateralization: Discoordination Tip Elevation: Reduced ROM Repeated Tip Elevation: Reduced ROM Food Presentation - Solids Food Presented: Pureed (Via teaspoon) Behaviors/Comments: Pt initially fed self during evaluation. Pt held spoon upside down and required a cue to correct utensil position. Pt took heaping spoonfuls of food and was impulsive with putting another spoonful in mouth before swallowing first bite. CHARGING MANIPULATOR cued pt and pt required hand over hand assistance to follow cues. Mild oral stasis noted. Food Presented: Mechanical Soft Behaviors/Comments: Pt took large bite and had severe oral stasis without awareness. Pt verbalized all food was swallowed and attempted to take another large bite with first bite in oral cavity. CHARGING MANIPULATOR presented liquid wash, which cleared stasis with three consecutive drinks. CHARGING MANIPULATOR fed pt 1 tsp size bites and pt with mild oral stasis and no awareness of residue. - Liquids Liquid Presented: Thin (Via straw and open cup.) Behaviors/Comments: Pt impulsive with drinking with a straw, taking up to four consecutive drinks and demonstrating an audible swallow and swallow delay of 3- 4 seconds. Pt had delayed cough 2x with large consecutive drinks, most likely flash penetration due to delay in swallow. CHARGING MANIPULATOR provided open cup and pt had labial spillage and filled mouth with liquid requiring three swallows to clear liquids. - Recommendations: Dysphagia Evaluation Dietary Recommendations: Dysphagia Pureed Comments:: Puree diet textue with thin liquids. Dysphagia Swallow Precautions/Strategies: Sitting Upright (90 deg), Liquids from Cup, Alternate Liquids/Solids Comments:: Pt to sit upright at 90 degrees, on side of bed or with HOB raised. Pt requires cues for posture and bringing spoon to mouth vs head/mouth to spoon. 1:1 supervision with all meals and feeding assistance to reduce size bites to 1tsp. Alternate liquids and solids every 3-4 bites. Pace with meal and watch for swallow before presentation of next bite. Present liquids from open cup to reduce swallowing air, however guided straw drinks are appropriate. Monitor for s/s of aspiration and or penetration. - Summary Dysphagia Evaluation Summary: Pt with moderate-severe oropharygneal dysphagia as characterized by oral motor weakness and decreased sensation, decreased awareness with meal, severe impulsivity with PO intake, limited mastication with mechanical soft diet texture, 2x cough with thin liquids, and 3-4 second swallow delay requiring multiple swallows. CHARGING MANIPULATOR recommends puree diet texture with thin liquids to reduce oral stasis, reduce risk for reflux and reguritation of unchewed food pieces, and increase independence with feeding. At this time, 1:1 supervision and max cues with food to decrease impulsivity and assist with pacing. Pt has minimal risk for aspiration and or penetration. Further Therapy Indicated?: Yes Comments: CHARGING MANIPULATOR recommends further ST therapy upon discharge to rehab center for swallowing, cogntition, and language. Rehab Potential: Good Functional Reporting G Codes: Current CL Goal CL Discharge CL Severity Impairment Rationale: Pt is on puree diet texture with thin liquids with risk for aspiration or penetration due to oral sensation and impulsivity with PO intake. Plan Duration of Treatment: One Time Treatment Frequency of Treatment: One time treatment Anticipated Discharge Destination: Intermediate Care Facility (Rehab Facility.)
--- NOTE | 2016-11-18 12:39 | PCM.PROG ---
Attending Provider: ATTENDING PROVIDER: Dr. MARK WATSON DATE OF SERVICE: 11/18/16 SUBJECTIVE: This 81 year old BLACK/ F was hospitalized 11/15/16. The patient is hospitalized with altered mental status, fever of unknown etiology. Condition has improved. She is more alert. The patient has some difficulty swallowing her medication swallowing and food. Will do upper GI. Swallow study has been ordered. REVIEW OF SYSTEMS: CONSTITUTIONAL: No night sweats. No fatigue, malaise, lethargy. No fever or chills. HEENT: Eyes: No visual changes. No eye pain. No eye discharge. ENT: No runny nose. No epistaxis. No sinus pain. No odynophagia. No congestion. RESPIRATORY: No cough, no congestion. No hemoptysis. CARDIOVASCULAR: No angina symptoms. No CHF symptoms. No atypical chest pain for CAD. No palpitations. No shortness of breath. GASTROINTESTINAL: No abdominal pain. No nausea or vomiting. No diarrhea or constipation. No hematemesis. No hematochezia. GENITOURINARY: No urgency. No frequency. No dysuria. No hematuria. No obstructive symptoms. No discharge. No pain. No significant abnormal bleeding. MUSCULOSKELETAL: No musculoskeletal pain; no joint swelling. NEUROLOGICAL: Awake, alert and oriented times three. No headache. No neck pain. No syncope. No seizures. No dizziness. PSYCHIATRIC: Not anxious. No depression. No suicidal thoughts. No homicidal thoughts. SKIN: No rash. No lesions. No wounds. ENDOCRINE: No unexplained weight loss. No weight gain. HEMATOLOGIC/LYMPHATIC: No anemia. No purpura. No petechiae. No prolonged or excessive bleeding. No palpable lymph nodes. PHYSICAL EXAMINATION: GENERAL: The patient is awake, alert and oriented, lying in bed in no distress. VITAL SIGNS: Temperature 96.9 F, Pulse 70, Respiratory Rate 16, BP 116/68, Pulse Ox 98% HEENT: Head normocephalic, atraumatic. Eyes: Extraocular muscles are intact. Pupils are equal, round and reactive to light and accommodation. Ears: No lesions. Nose appeared normal. Throat: No exudate or erythema. NECK: Supple. No JVD, no carotid bruit. No lymphadenopathy or thyromegaly. LUNGS: Decreased breath sounds. Clear to auscultation. Percussion note normal. Chest symmetrical. HEART: S1, S2, no S3. No murmurs. No cyanosis or clubbing. No ascites. Pulses: Dorsalis pedis and posterior tibial pulses +1 to +2 both sides. ABDOMEN: Soft. Non-tender. Bowel sounds active. No CVA tenderness. No mass felt. EXTREMITIES: No edema. Full range of motion of all extremities, equal. NEUROLOGIC: No focal deficit. Cranial nerves II through XII are grossly intact. No headache, no double vision or headache. SKIN: Not dry. Intact. Turgor-normal. LYMPHATIC: No palpable lymph nodes/no lymphedema. MUSCULOSKELETAL: Normal joints with no swelling. Muscle tone is normal. LAB REVIEW: 11/18/16 04:50 11/18/16 04:50 11/18/16 04:50: WBC 4.73, RBC 3.52 L, Hgb 11.7 L, Hct 35.5 L, MCV 100.9 H, MCH 33.2 H, MCHC 33.0, RDW Coeff of Juan 13.8, Plt Count 147, Immature Gran % (Auto) 0.2, Neut % (Auto) 56.1, Lymph % (Auto) 30.4, [place] % (Auto) 9.9, Eos % (Auto) 2.3, Baso % (Auto) 1.1, Immature Gran # (Auto) 0.0, Neut # 2.7, Lymph # 1.4, [place] # 0.5, Eos # 0.1, Baso # 0.1, Sodium 141, Potassium 4.1, Chloride 110 H, Carbon Dioxide 24, Anion Gap 11.1, BUN 13, Creatinine 1.02, Estimated GFR (MDRD ) 63.00, BUN/Creatinine Ratio 12.74, Glucose 64 L, Calcium 9.1, Total Bilirubin 1.59 H, AST 34, ALT 35, Alkaline Phosphatase 157 H, Total Protein 5.6 L, Albumin 3.0 L, Globulin 2.6, Albumin/Globulin Ratio 1.15 11/16/16 09:25: Thyroxine (T4) 3.5 L ASSESSMENT: 1. Altered mental status with possibility of stroke 2. Dilated cardiomyopathy 3. Coronary artery disease 4. Dementia 5. Fever resolved after admission day PLAN: 1. Will do CT scan of head with contrast 2. Upper GI evaluation 3. Swallow evaluationon cipro will do ct scan of head with contrast 4. Continue Cipro 5. Continue Protonix 6. Will decrease Maxzide to four days a week Plan and coordination of the patient's care discussed in the presence of Client Project Coordinator and nurse. CONDITION: Stable SCRIBED BY: GABE SALINAS Veneer Sawyer scribed while in presence of service performed by Dr. MARK WATSON on 11/18/16 ([id number])
[2016-11-18] MEDS: XANAX PO SCH (21:31)
[2016-11-18] MEDS: CRESTOR PO SCH (21:31)
[2016-11-18 21:32] VITALS: TEMP 97.6
[2016-11-18] MEDS: SODIUM CHLORIDE 1,000 ML IV SCH (22:02)
[2016-11-19 05:51] VITALS: BP 115/78
[2016-11-19 06:44] LABS: BASOPHILS % (AUTO) 0.9 % (0.0-3.0); EOSINOPHILS # (AUTO) 0.1 K/ul (0.0-0.7); EOSINOPHILS % (AUTO) 2.3 % (0.0-7.0); HEMATOCRIT 32.6 % (37.0-47.0); HEMOGLOBIN 10.8 g/dl (12.0-16.0); IMMATURE GRANULOCYTE % (AUTO) 0.3 % (0.0-5.0); LYMPHOCYTES # (AUTO) 1.2 K/uL (0.60-3.4); LYMPHOCYTES % (AUTO) 33.4 (10.0-50.0); MEAN CORPUSCULAR HEMOGLOBIN 33.3 pg (27.0-31.0); MEAN CORPUSCULAR HGB CONC 33.1 (31.8-35.4); MEAN CORPUSCULAR VOLUME 100.6 fl (81.0-99.0); MONOCYTES # (AUTO) 0.3 K/uL (0.4-2.0); MONOCYTES % (AUTO) 9.8 (0-10); NEUTROPHILS # (AUTO) 1.9 K/ul (2.0-6.9); NEUTROPHILS % (AUTO) 53.3; PLATELET COUNT 136 10^3/uL (140-440); RED BLOOD COUNT 3.24 10^6/ul (4.20-5.40); WHITE BLOOD COUNT 3.47 K/ul (4.6-10.2)
[2016-11-19 07:01] LABS: ALBUMIN 2.7 g/dL (3.4-5.0); ALBUMIN/GLOBULIN RATIO 1.23; ANION GAP 9.4; BILIRUBIN,TOTAL 1.35 mg/dL (0.00-1.20); BUN/CREATININE RATIO 13.68; CALCIUM 8.7 mg/dL (8.2-10.2); CREATININE 0.95 mg/dL (0.60-1.30); POTASSIUM 4.4 mmol/L (3.5-5.10); TOTAL PROTEIN 4.9 g/dL (5.8-8.1)
[2016-11-19] MEDS: CALCIUM 500 + VIT D 200 MG TABLET PO SCH (08:53)
[2016-11-19] MEDS: NORCO 5-325 PO SCH (08:53)
[2016-11-19] MEDS: ASPIRIN EC PO SCH (08:53)
[2016-11-19] MEDS: FERROUS SULFATE PO SCH (08:53)
[2016-11-19] MEDS: CARAFATE PO SCH (08:53)
[2016-11-19] MEDS: NAMENDA PO SCH (08:53)
[2016-11-19] MEDS: CIPRO PO SCH (08:54)
[2016-11-19] MEDS: ZESTRIL PO SCH (08:54)
[2016-11-19] MEDS: LASIX TAB PO SCH (08:54)
[2016-11-19] MEDS: LOVENOX SUBCUT SCH (08:55)
[2016-11-19] MEDS: PLAVIX PO SCH (08:55)
[2016-11-19] MEDS: K-DUR PO SCH (08:55)
[2016-11-19] MEDS: COREG PO SCH (08:55)
--- NOTE | 2016-11-19 09:23 | PCM.PROG ---
Attending Provider: ATTENDING PROVIDER: Dr. MARK WATSON DATE OF SERVICE: 11/19/16 SUBJECTIVE: This 81 year old BLACK/ F was hospitalized 11/15/16. The patient is hospitalized with altered mental status, aggressive behavior, worsening dementia and fever. The patient has been afebrile for the last several days. She is eating better. The speech therapist recommends help with feeding as she doesn't chew her food well. She is confused but no aggressive behavior. At times, she is oriented to person and place. The family has decided to put the patient in the senior care. The patient seems to be agreeable with this plan. REVIEW OF SYSTEMS: CONSTITUTIONAL: No night sweats. No fatigue, malaise, lethargy. No fever or chills. HEENT: Eyes: No visual changes. No eye pain. No eye discharge. ENT: No runny nose. No epistaxis. No sinus pain. No odynophagia. No congestion. RESPIRATORY: No cough, no congestion. No hemoptysis. CARDIOVASCULAR: No angina symptoms. No CHF symptoms. No atypical chest pain for CAD. No palpitations. No shortness of breath. GASTROINTESTINAL: Appetite improved. No abdominal pain. No nausea or vomiting. No diarrhea or constipation. No hematemesis. No hematochezia. GENITOURINARY: No urgency. No frequency. No dysuria. No hematuria. No obstructive symptoms. No discharge. No pain. No significant abnormal bleeding. MUSCULOSKELETAL: No musculoskeletal pain; no joint swelling. NEUROLOGICAL: Confusion at times, lucid intervals. No headache. No neck pain. No syncope. No seizures. No dizziness. PSYCHIATRIC: Not anxious. No depression. No suicidal thoughts. No homicidal thoughts. SKIN: No rash. No lesions. No wounds. ENDOCRINE: No unexplained weight loss. No weight gain. HEMATOLOGIC/LYMPHATIC: No anemia. No purpura. No petechiae. No prolonged or excessive bleeding. No palpable lymph nodes. PHYSICAL EXAMINATION: GENERAL: The patient is awake seems oriented to person lying in bed in no distress. VITAL SIGNS: Temperature 97.6 F, Pulse 76, Respiratory Rate 20, BP 115/78, Pulse Ox 100% HEENT: Head normocephalic, atraumatic. Eyes: Extraocular muscles are intact. Pupils are equal, round and reactive to light and accommodation. Ears: No lesions. Nose appeared normal. Throat: No exudate or erythema. NECK: Supple. No JVP, no carotid bruit. No lymphadenopathy or thyromegaly. LUNGS: Decreased breath sounds. Clear to auscultation. Percussion note normal. Chest symmetrical. HEART: S1, S2, no S3. No murmurs. No cyanosis or clubbing. No ascites. Pulses: Dorsalis pedis and posterior tibial pulses +1 to +2 both sides. ABDOMEN: Soft. Non-tender. Bowel sounds active. No CVA tenderness. No mass felt. EXTREMITIES: No edema. Full range of motion of all extremities, equal. NEUROLOGIC: No focal deficit. Cranial nerves II through XII are grossly intact. No headache, no double vision or headache. The patient can walk on her own, gait is unsteady. SKIN: Not dry. Intact. Turgor-normal. LYMPHATIC: No palpable lymph nodes/no lymphedema. MUSCULOSKELETAL: Normal joints with no swelling. Muscle tone is normal. LAB REVIEW: 11/19/16 06:25 11/19/16 06:25 11/19/16 06:25: WBC 3.47 L, RBC 3.24 L, Hgb 10.8 L, Hct 32.6 L, MCV 100.6 H, MCH 33.3 H, MCHC 33.1, RDW Coeff of Juan 13.6, Plt Count 136 L, Immature Gran % ( Auto) 0.3, Neut % (Auto) 53.3, Lymph % (Auto) 33.4, [place] % (Auto) 9.8, Eos % ( Auto) 2.3, Baso % (Auto) 0.9, Immature Gran # (Auto) 0.0, Neut # 1.9 L, Lymph # 1.2, [place] # 0.3 L, Eos # 0.1, Baso # 0.0, Sodium 138, Potassium 4.4, Chloride 109 H, Carbon Dioxide 24, Anion Gap 9.4, BUN 13, Creatinine 0.95, Estimated GFR (MDRD) 68.00, BUN/Creatinine Ratio 13.68, Glucose 64 L, Calcium 8.7, Total Bilirubin 1.35 H, AST 33, ALT 31, Alkaline Phosphatase 136, Total Protein 4.9 L , Albumin 2.7 L, Globulin 2.2, Albumin/Globulin Ratio 1.23 ASSESSMENT: 1. Dementia with confusion, worsening. CT scan, second one didn't show any acute findings. The carotid scan is negative. 2. Cardiovascular status is stable with no symptoms or signs of CHF or coronary insufficiency. 3. Pacemaker capturing and sensing well. PLAN: 1. Discharge to senior care. 2. Finish Cipro for a total of 7 days. 3. The patient can be up and about with assistance. 4. PT for strengthening of lower extremity muscles. 5. Diet pureed and patient needs to eat slow with intermittent liquids. 6. Pacemaker followup needs to be continued at the pacemaker clinic at one of [facility]. Plan and coordination of the patient's care discussed in the presence of Data Coordinator and nurse. CONDITION: Stable SCRIBED BY: GABE SALINAS, Fishing Boat Mate scribed while in presence of service performed by Dr. MARK WATSON on 11/19/16 ([id number])
--- NOTE | 2016-11-19 10:26 | CM.DICTOOL ---
ADMISSION: 11/15/16 20:15 DISCHARGE: 11/19/16 DATE OF SERVICE: 11/19/16 FINAL DIAGNOSIS ACUTE MENTAL STATUS CHANGES FEVER DEMENTIA CAD S/P STENT APPLICATION DYSLIPIDEMIA CONGESTIVE HEART FAILURE HYPERTENSION ENCEPHALOPATHY DM, TYPE 2 (DIET CONTROLLED) GERD ANEMIA CKD ARTHRITIS NEUROPATHY MULTILEVEL DEGENERATIVE CHANGES GREATEST AT L4-5 (CT L-SPINE 11/19/15) OLD L4 SUPERIOR ENDPLATE COMPRESSION FRACTURE (CT L-SPINE 11/19/15) PACEMAKER CHOLECYSTECTOMY HYSTERECTOMY BILATERAL CATARACT EXTRACTIONS LAST VITALS Temp Pulse Resp BP Pulse Ox 97.6 F 76 20 115/78 100 11/19/16 05:26 11/19/16 05:26 11/19/16 05:26 11/19/16 05:26 11/19/16 05:26 ACTIVE MEDICATIONS Acetaminophen/Hydrocodone Bitart (Dewitt 5-325) 1 tab PO BID [facility] Last Admin: 11/18/16 21:30 Dose: 1 tab Albuterol/Ipratropium (Duoneb) 1 vial NEB RTQ4H PRN PRN Reason: Wheezing Alprazolam (Xanax) 0.25 mg PO BEDTIME [facility] Last Admin: 11/18/16 21:31 Dose: 0.25 mg Alprazolam (Xanax) 0.25 mg PO DAILY PRN PRN Reason: Agitation Last Admin: 11/18/16 23:13 Dose: 0.5 mg Aspirin (Aspirin Ec) 81 mg PO DAILYWM [facility] Last Admin: 11/18/16 08:15 Dose: 81 mg Calcium/Vitamin D (Calcium 500 + Vit D 200 Mg Tablet) 1 each PO DAILY [facility] Last Admin: 11/18/16 08:15 Dose: 1 each Carvedilol (Coreg) 3.125 mg PO DAILYWM [facility] Last Admin: 11/18/16 08:15 Dose: 3.125 mg Ciprofloxacin (Cipro) 250 mg PO BIDCIPRO [facility] X 2 DAYS (STOP AFTER 10/21/16 DOSES) Stop: 11/22/16 23:59 Last Admin: 11/18/16 21:31 Dose: 250 mg Clopidogrel Bisulfate (Plavix) 75 mg PO DAILY [facility] Last Admin: 11/18/16 08:16 Dose: 75 mg Ferrous Sulfate (Ferrous Sulfate) 324 mg PO BID [facility] Last Admin: 11/18/16 21:31 Dose: 324 mg Furosemide (Lasix Tab) 40 mg PO QDAC [facility] Last Admin: 11/18/16 06:22 Dose: 40 mg Lisinopril (Zestril) 2.5 mg PO DAILY [facility] Last Admin: 11/18/16 08:15 Dose: 2.5 mg Memantine (Namenda) 10 mg PO BID [facility] Last Admin: 11/18/16 21:30 Dose: 10 mg Nitroglycerin (Nitrostat) 0.4 mg SL Q5MIN X 3 DOSES PRN PRN Reason: CHEST PAIN Pantoprazole Sodium (Protonix) 40 mg PO BIDAC Potassium Chloride (K-Dur) 20 meq PO QID [facility] Last Admin: 11/18/16 21:30 Dose: 20 meq Rosuvastatin Calcium (Crestor) 10 mg PO BEDTIME [facility] Last Admin: 11/18/16 21:31 Dose: 10 mg Sucralfate (Carafate) 1 gm PO ACHS [facility] Last Admin: 11/18/16 21:30 Dose: 1 gm ALLERGIES Penicillins Adverse Reaction (Verified 11/15/16 18:47) pneumococcal vaccine Adverse Reaction (Verified 11/15/16 18:47) flu vaccine Adverse Reaction (Unknown, Uncoded 11/15/16 18:47) NEW PRESCRIPTIONS: FROM HOME MEDICATIONS: DO NOT GIVE ZYRTEC OR CETIRIZINE HCL NOTE CHANGES TO XANAX 0.25 MG PO AT BEDTIME (PRESCRIPTION PROVIDED) NOTE CHANGES TO XANAX 0.25 MG DAILY PRN FOR ANXIETY (PRESCRIPTION PROVIDED) NEW MEDICATIONS: CIPRO 250 MG PO BID X 3 DAYS (STOP AFTER 11/21/16 DOSES) SMOKING: NONSMOKER LAB REVIEW: 11/19/16 06:25 11/19/16 06:25 11/19/16 06:25: WBC 3.47 L, RBC 3.24 L, Hgb 10.8 L, Hct 32.6 L, MCV 100.6 H, MCH 33.3 H, MCHC 33.1, RDW Coeff of Juan 13.6, Plt Count 136 L, Immature Gran % ( Auto) 0.3, Neut % (Auto) 53.3, Lymph % (Auto) 33.4, [place] % (Auto) 9.8, Eos % ( Auto) 2.3, Baso % (Auto) 0.9, Immature Gran # (Auto) 0.0, Neut # 1.9 L, Lymph # 1.2, [place] # 0.3 L, Eos # 0.1, Baso # 0.0, Sodium 138, Potassium 4.4, Chloride 109 H, Carbon Dioxide 24, Anion Gap 9.4, BUN 13, Creatinine 0.95, Estimated GFR (MDRD) 68.00, BUN/Creatinine Ratio 13.68, Glucose 64 L, Calcium 8.7, Total Bilirubin 1.35 H, AST 33, ALT 31, Alkaline Phosphatase 136, Total Protein 4.9 L , Albumin 2.7 L, Globulin 2.2, Albumin/Globulin Ratio 1.23 PLAN: [facility]. WATSON/CARLOS WILL FOLLOW THE PATIENT DURING USUAL [facility] ROUNDS IN ONE WEEK RESUME HOME MEDICATIONS PER LIST PROVIDED BY THE NURSING STAFF DO NOT GIVE ZYRTEC OR CETIRIZINE HCL NOTE CHANGES TO XANAX 0.25 MG PO AT BEDTIME (PRESCRIPTION PROVIDED) NOTE CHANGES TO XANAX 0.25 MG DAILY PRN FOR ANXIETY (PRESCRIPTION PROVIDED) NEW MEDICATIONS: CIPRO 250 MG PO BID X 2 DAYS (STOP AFTER 11/21/16 DOSES) ACTIVITY: MAY PARTICIPATE IN [facility] ACTIVITY PROGRAM TOLERATED PT/OT/SPEECH PLEASE EVALUATE AND TREAT INDICATED TO DINING ROOM FOR ALL MEALS LABS: U/A, CBC WITH DIFF AND CMP IN ONE WEEK CBC WITH DIFF AND CMP Q 3 MONTHS ACCU-CHECKS TWICE WEEKLY FASTING DIET: CONSISTENT CARBS SENIOR TALENT ACQUISITION SPECIALIST PLEASE CONSULT FOR OPTIMAL NUTRITIONAL NEEDS OTHER ORDERS: V/S DAILY SUMMARY: THE PATIENT IS ALERT AND ORIENTED TO PERSON AND PLACE. SHE IS FREQUENTLY FORGETFUL AND BECOMES DISORIENTED, BUT RE-ORIENTS EASILY. SHE IS CALM AND COOPERATIVE FOR CARE. MS. COREY CURRENTLY RESIDES AT HOME ALONE. HER FRIEND STAYS WITH HER AT NIGHT AND HER DAUGHTER/POA, KISHAN, IS VERY SUPPORTIVE OF HER NEEDS. SHE IS AWARE AND AGREEABLE FOR DISCHARGE TO [facility]. SHE IS ABLE TO AMBULATE BUT IS VERY UNSTEADY ON HER FEET. SHE REQUIRES ASSISTANCE X1 FOR TRANSFERS AND AMBULATION. SHE ALSO REQUIRES SUPERVISION FOR FEEDINGS SHE HAS IMPULSIVENESS AND TAKES LARGE RAPID BITES WITHOUT CHEWING PRIOR TO SWALLOWING. HER SKIN TURGOR IS INTACT AND WITHOUT DECUBITUS ULCERS AT DISCHARGE. HER HYDRATION STATUS IS IMPROVED WELL. WE WILL CONTINUE TO FOLLOW HER DURING HER [facility] STAY. MARK WATSON M.D.
--- NOTE | 2016-11-19 11:16 | DI ---
EXAM: Single contrast upper GI History: Vomiting. Comparison: CT abdomen pelvis 11/15/2016 Technique: Patient was given oral barium and multiple spot films of the esophagus, stomach and duod enum were obtained in various projections. Findings: Heart is enlarged. Pacer device is seen. Diffuse esophageal spasm. The esophagus did significantly dilated at some point during the study an d a bird's beak sign was seen within the lower esophagus. Contrast did pass into the stomach which was not well distended with a question wall thickening along the greater curvature. The contrast did pass into the duodenum which demonstrated normal course and caliber. Impression: 1. Findings compatible with achalasia and diffuse esophageal spasm. 2. Question wall thickening of the greater curvature of the stomach versus incomplete distension. Correlate with upper endoscopy.
[2016-11-22] MEDS ORDERED: CALCIUM CARBONATE PO SCH (09:00)
[2016-11-22] MEDS ORDERED: [UNRECOGNIZED DRUG - OTHER] PO SCH (09:00)
[2016-11-22] MEDS ORDERED: VITAMIN D3 E PO SCH (09:00)
--- NOTE | 2016-11-23 14:35 | DS ---
DATE OF SERVICE: 11/19/16 FINAL DIAGNOSIS: 1. Acute mental status changes 2. Fever 3. Dementia 4. CAD status post stent application 5. Dyslipidemia 6. Congestive heart failure 7. Hypertension 8. Encephalopathy 9. Diabetes Mellitus, type 2 (diet Controlled) 10. GERD 11. Anemia 12. Chronic Kidney Disease 13. Arthritis 14. Neuropathy 15. Multilevel degenerative changes greatest at L4-5 (CT L-spine 11/19/15) 16. Old L4 superior endplate compression fracture (CT L-spine 11/19/15) 17. Pacemaker 18. Cholecystectomy 19. Hysterectomy 20. Bilateral cataract extractions. LAST VITALS: Temperature 97.6, pulse 76, respiratory rate 20, blood pressure 115/78 and pulse ox 100. DISCHARGE INSTRUCTIONS: Discharge to [facility] today. Dr. Bahena/Roel will follow the patient during usual jail rounds in one week. Resume home medications per list provided by the nursing staff. Vital signs daily. U/A , CBC with Diff and CMP in one week. CBC with Diff and CMP Q 3 months. Accu- checks twice weekly fasting. MEDICATIONS AT DISCHARGE: English 5-325mg PO twice a day DUO NEB Q 4hours PRN Xanax 0.25mg PO bedtime Xanax 0.25mg PO daily PRN Aspirin 81mg PO daily Calcium 500+Vit D 200mg one each PO daily Coreg 3.125mg PO daily Cipro 250mg PO twice a day Plavix 75mg PO daily Ferrous Sulfate 324mg PO twice a day Lasix 40mg PO QDAC Zestril 2.5mg PO daily Namenda 10mg PO twice a day Nitrostat 0.4mg SL Q 5 minutes x3 doses PRN Protonix 40mg PO twice a day K-Dur 20meq PO four times a day Crestor 10mg PO bedtime Carafate 1 gram PO ACHS ALLERGIES: Penicillins Pneumococcal vaccine Flu vaccine NEW PRESCRIPTIONS: CIPRO 250mg PO twice a day x3 (stop after 11/21/16 doses) FROM HOME MEDICATIONS: DO NOT GIVE ZYRTEC or CETIRIZINE HCL NOTE CHANGE TO XANAX 0.25mg PO AT BEDTIME NOTE CHANGE TO XANAX 0.25mg DAILY PRN FOR ANXIETY DIET INSTRUCTIONS Consistent Carbohydrates. Regroover please consult for optimal nutritional needs. ACTIVITY: May participate in jail activity program as tolerated. PT/OT/Speech please evaluate and treat as indicated. To dining room for all meals. SMOKING: Nonsmoker DISEASE SPECIFIC EDUCATION: Medication changes Followup New medication HOSPITAL COURSE: The patient is an 81 year old black female was hospitalized with alerted mental status. The patient's neurological status remained unchanged. Her mental status improved throughout the stay in the hospital. She wasn't aggressive like the way she was when she brought to the emergency room. The patient has settled down. The patient had slight fever on admission. The patient was practically afebrile. She was put on Cipro trying to cover her for urinary tract infection that could have caused the disorientation and aggressive behavior. In any case the patient's family and patient have decided to go to the jail. The patient was discharged. Changes of the medications were made as listed above. During the stay in the stay in the hospital the patient's cardiovascular and central nervous system status remained stable. The patient's repeat of the CT scan of the head did not show any acute finding. Labs on discharge: hgb 11.7, hct 35.5, WBC 4,700 normal differential, creatinine 1, BUN 13, potassium 4.1. CONDITION: Stable. TIME SPENT: More than 60 minutes. MTDD
--- NOTE | 2016-11-23 14:36 | PN ---
11/15/16: Level 5 11/16/16: Intermediate 11/17/16: Intermediate 11/18/16: Intermediate 11/19/16: D as in discharge MTDD
== END 2016-11-19 12:52 | DRG 947 ==
LOC: ED 18:36 → MEDSURG B 20:15
PROVIDERS: ADMIT Internal Medicine; ATTEND Internal Medicine
DX: R41.82 Altered mental status, unspecified (principal); G93.40 Encephalopathy, unspecified; F03.91 Unspecified dementia, unspecified severity, with behavioral disturbance; I67.82 Cerebral ischemia; R50.81 Fever presenting with conditions classified elsewhere; I50.9 Heart failure, unspecified; I10 Essential (primary) hypertension; E11.9 Type 2 diabetes mellitus without complications; I25.10 Atherosclerotic heart disease of native coronary artery without angina pectoris; E78.5 Hyperlipidemia, unspecified; D50.0 Iron deficiency anemia secondary to blood loss (chronic); I12.9 Hypertensive chronic kidney disease with stage 1 through stage 4 chronic kidney disease, or unspecified chronic kidney disease; E11.22 Type 2 diabetes mellitus with diabetic chronic kidney disease; N18.9 Chronic kidney disease, unspecified; E16.2 Hypoglycemia, unspecified; R13.10 Dysphagia, unspecified; M19.90 Unspecified osteoarthritis, unspecified site; G62.9 Polyneuropathy, unspecified; M47.896 Other spondylosis, lumbar region; K21.9 Gastro-esophageal reflux disease without esophagitis; M48.56XS Collapsed vertebra, not elsewhere classified, lumbar region, sequela of fracture; I25.2 Old myocardial infarction; Z95.0 Presence of cardiac pacemaker; Z95.5 Presence of coronary angioplasty implant and graft; Z79.02 Long term (current) use of antithrombotics/antiplatelets; Z79.899 Other long term (current) drug therapy
CPT/HCPCS: 36415; 80053; 81001; 83036; 83605; 84145; 84436; 84439; 84443; 85025; 85651; 87040; 87804; 93005; 93010; 96365; 97802; 99284; 99285

== ENCOUNTER 2016-12-30 14:38 | Inpatient (IN) | payer OTHER ==
[2016-12-30 15:11] LABS: ABG BASE EXCESS 3 (-2.0-2.0); ABG HCO3 27 (22.0-26.0); ABG PH 7.48 (7.35-7.45); ABG TCO2 28 (22.0-28.0)
[2016-12-30 15:20] LABS: BASOPHILS % (AUTO) 0.3 % (0.0-3.0); EOSINOPHILS # (AUTO) 0.1 K/ul (0.0-0.7); EOSINOPHILS % (AUTO) 3.3 % (0.0-7.0); HEMATOCRIT 33.7 % (37.0-47.0); HEMOGLOBIN 11.6 g/dl (12.0-16.0); LYMPHOCYTES # (AUTO) 1.2 K/uL (0.60-3.4); LYMPHOCYTES % (AUTO) 41.3 (10.0-50.0); MEAN CORPUSCULAR HEMOGLOBIN 33.1 pg (27.0-31.0); MEAN CORPUSCULAR HGB CONC 34.4 (31.8-35.4); MEAN CORPUSCULAR VOLUME 96.3 fl (81.0-99.0); MONOCYTES # (AUTO) 0.3 K/uL (0.4-2.0); MONOCYTES % (AUTO) 11.3 (0-10); NEUTROPHILS # (AUTO) 1.3 K/ul (2.0-6.9); NEUTROPHILS % (AUTO) 43.8; PLATELET COUNT 143 10^3/uL (140-440)
[2016-12-30 15:41] LABS: ALBUMIN 3.2 g/dL (3.4-5.0); ALBUMIN/GLOBULIN RATIO 1.14; ANION GAP 12.8; BILIRUBIN,TOTAL 1.49 mg/dL (0.00-1.20); BUN/CREATININE RATIO 15.15; CREATININE 1.65 mg/dL (0.60-1.30); POTASSIUM 4.8 mmol/L (3.5-5.10); TROPONIN I 0.169 ng/ml (0.0000-0.4000)
--- NOTE | 2016-12-30 15:52 | CT ---
EXAM: CT of the chest without contrast History: Cough. Comparison: Chest CT 11/15/2016 Technique: Multiplanar CT images through the thorax were obtained without the administration of IV contrast Findings: Heart is enlarged. No pericardial effusion. Coronary artery calcifications. Great vess els are grossly unremarkable on this noncontrast study. No pathologically enlarged axillary or medi astinal lymph nodes. Evaluation for hilar lymph nodes is limited due to the lack of contrast admini stration. Interval development of multifocal bilateral lung infiltrates with tree in bud opacities and bronchi al wall thickening. No pneumothorax. No pleural fluid. There is body wall edema. Cholecystectomy clips seen in the upper abdomen. No acute osseous abnorm alities. Impression: 1. Interval development of multifocal bilateral pneumonia. 2. Cardiomegaly. 3. Coronary artery disease. 4. Body wall edema.
--- NOTE | 2016-12-30 16:14 | ED.PDOC ---
General ED Provider: Dr. CORINNE CALLOWAY-ER Chief Complaint: Cough Stated Complaint: she is coughing -- Time Seen by Physician: 14:40 Mode of Arrival: Wheelchair Information Source: Patient Exam Limitations: No limitations Primary Care Provider: MARK WINTERS Nursing and Triage Documentation Reviewed and Agree: Yes Respiratory Complaint Exam - Respiratory Complaint/Exam Onset/Duration: 2 days Symptoms Are: Still present Timing: Intermittent Initial Severity: Mild Current Severity: Mild Location: Chest Character: Reports: Productive cough Aggravating: Reports: None Alleviating: Reports: None Associated Signs and Symptoms: Reports: Dyspnea, URI. Denies: Rapid breathing, Fever, Chills, Chest pain, Pleuritic chest pain, Wheezing, Hemoptysis, Dizziness , Calf pain, Calf swelling, Edema, Nasal congestion, Hoarseness, Sinus discomfort, Vomiting, Sore throat, Weight loss, Decreased oral intake, Increased thirst, Increased appetite, Increased urination Related History: Reports: Similar episode History of Healthcare-Acquired Pneumonia: Lives at correction Related Surgical History: Reports: None Tuberculosis Risk Factors: Reports: Communal living Home Oxygen Use: No Recent Stress Test: No Recent Echo/LV Function: No Current Antibiotic Use: No Current Asthma Medication Use: No Respiratory Distress: None Inadequate Respiratory Effort: No Dysphagia Present: No Stridor Present: No JVD Present: No Accessory Muscle Use: No Retractions: Not Present Diminished Breath Sounds: No Sinus Tenderness: None Grunting Respirations: No Kussmaul Respirations: No Differential Diagnoses: CHF, Pneumonia Non-Traumatic Chest Pain Syncope: EKG Performed Review of Systems - Review Of Systems Constitutional: Reports: No symptoms Eyes: Reports: No symptoms Ears, Nose, Mouth, Throat: Reports: No symptoms Respiratory: Reports: Cough Cardiac: Reports: No symptoms GI: Reports: No symptoms : Reports: No symptoms Musculoskeletal: Reports: No symptoms Skin: Reports: No symptoms Neurological: Reports: No symptoms Endocrine: Reports: No symptoms Hematologic/Lymphatic: Reports: No symptoms All Other Systems: Reviewed and Negative Past Medical History - Past Medical History Previously Healthy: No Endocrine: Reports: DM 2, Dyslipidemia Cardiovascular: Reports: CAD, [place], Hypertension, CHF, Other (12/10/15 seen at [facility]- noncardiac chest pain) Respiratory: Reports: None, COPD Hematological: Reports: Anemia Gastrointestinal: Reports: GERD Genitourinary: Reports: Kidney stones, CKD Neuro/Psych: Reports: None, Anxiety Musculoskeletal: Reports: Arthritis Cancer: Reports: None Last Menstrual Period: hysterectomy Other Pertinent Past Medical History: NEUROPATHY,BORDERLINE DIABETES,WITH ACCU CHECKS DAILY - Surgical History General Surgical History: Reports: Hysterectomy, Cholecystectomy, Pacemaker ( PACEMAKER 1998 WITH BATTERY CHANGE X2 AT [facility], MOST RECENT IS FEBRUARY 2015), Orthopedic (left knee), Other (BILATEREAL CATARACT ) - Family History Family History: Reports: Unknown - Social History Smoking Status: Never smoker Hx Substance Use: No Alcohol Screening: None Lives: In [facility] Physical Exam - Physical Exam Appearance: Well-appearing, No pain distress, Well-nourished Pain Distress: Mild Eyes: GERARDO, EOMI, Conjunctiva clear ENT: Ears normal, Nose normal, Oropharynx normal Neck: Supple Respiratory: Crackles, Rhonchi Cardiovascular: RRR, Pulses normal, No rub, No murmur GI/: Soft, Nontender, No masses, Bowel sounds normal, No Organomegaly Musculoskeletal: Normal strength, ROM intact, No edema, No calf tenderness Skin: Warm, Dry, Normal color Neurological: Sensation intact, Motor intact, Reflexes intact, Cranial nerves intact, Alert, Oriented Psychiatric: Affect appropriate, Mood appropriate Interpretation - Radiology Interpretation Radiology Interpretation By: Radiologist Radiology Results: Positive Exam Interpreted: CT Scan ("multifocal bilateral pneumonia") Physician Notification - Case Discussed Physician Notified: dr winters Time of Notification: 16:20 Critical Care Note - Critical Care Note Total Time (mins): 0 Course - Course Hematology/Chemistry: 12/30/16 15:10 12/30/16 15:10 Orders, Labs, Meds: Lab Review 12/30/16 12/30/16 14:52 15:10 WBC 3.00 L RBC 3.50 L Hgb 11.6 L Hct 33.7 L MCV 96.3 MCH 33.1 H MCHC 34.4 RDW Coeff of Juan 12.6 Plt Count 143 Immature Gran % (Auto) 0.0 Neut % (Auto) 43.8 Lymph % (Auto) 41.3 Lipscomb % (Auto) 11.3 H Eos % (Auto) 3.3 Baso % (Auto) 0.3 Immature Gran # (Auto) 0.0 Neut # 1.3 L Lymph # 1.2 Lipscomb # 0.3 L Eos # 0.1 Baso # 0.0 Puncture Site r rad O2 Saturation 97.0 ABG pH 7.48 H ABG pCO2 36.0 ABG pO2 83.0 L ABG HCO3 27 H ABG Total CO2 28 ABG Base Excess 3 H Chon Test + FiO2 % 21.0 Sodium 133 L Potassium 4.8 Chloride 97 L Carbon Dioxide 28 Anion Gap 12.8 BUN 25 H Creatinine 1.65 H Estimated GFR (MDRD) 36.00 BUN/Creatinine Ratio 15.15 Glucose 111 Lactic Acid 13.0 Calcium 10.0 Total Bilirubin 1.49 H AST 42 H ALT 28 Alkaline Phosphatase 141 Total Creatine Kinase 109 Troponin I 0.1690 B-Natriuretic Peptide 400 H Total Protein 6.0 Albumin 3.2 L Globulin 2.8 Albumin/Globulin Ratio 1.14 Procalcitonin 0.41 Orders Category Date Time Status ABG DRAW REQUEST Stat CARDIO 12/30/16 14:52 Completed EKG-(ED ONLY) Stat CARDIO 12/30/16 14:52 Completed 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 [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] .ONCE EMERGENCY 12/30/16 14:53 Active ABG Stat LAB 12/30/16 14:52 Completed BLOOD CULTURE Stat LAB 12/30/16 15:10 Received BNP [B-TYPE NATRIURETIC PEPTIDE] Stat LAB 12/30/16 15:10 Completed CBC W/ AUTO DIFF Stat LAB 12/30/16 15:10 Completed COMPREHENSIVE METABOLIC PANEL Stat LAB 12/30/16 15:10 Completed CREATINE KINASE Stat LAB 12/30/16 15:10 Completed LACTIC ACID Stat LAB 12/30/16 15:10 Completed PROCALCITONIN Stat LAB 12/30/16 15:10 Completed TROPONIN I Stat LAB 12/30/16 15:[address] CHEST W/O CONTRAST Stat RADS 12/30/16 14:53 Completed Vital Signs: Temp Pulse Resp BP Pulse Ox 12/30/16 14:38 98 F 72 16 82/52 L 95 Departure - Departure Time of Disposition: 16:20 Disposition: ADMITTED INPATIENT Discharge Problem: Pneumonia Qualifiers: Pneumonia type: due to unspecified organism Laterality: bilateral Lung location : unspecified part of lung Qualifier Code: (J18.9) Pneumonia, unspecified organism Instructions: Pneumonitis (ED), Bacterial Pneumonia (ED) Condition: Good Pt referred to PMD for follow-up: Yes Allergies/Adverse Reactions: Allergies Penicillins Adverse Reaction (Verified 12/30/16 14:47) pneumococcal vaccine Adverse Reaction (Verified 12/30/16 14:47) flu vaccine Adverse Reaction (Unknown, Uncoded 11/15/16 18:47) Home Medications: Ambulatory Orders Alprazolam [Xanax] 0.25 mg PO BEDTIME 02/11/16 Clopidogrel Bisulfate [Clopidogrel] 75 mg PO DAILY 02/11/16 Furosemide [Lasix] 40 mg PO DAILY 02/11/16 Ipratropium/Albuterol Neb [Duoneb] 1 vial NEB RTQ4H PRN 02/11/16 Pantoprazole Sodium [Protonix] 40 mg PO BIDAC 02/11/16 Potassium Chloride [K-Dur] 20 meq PO QID 02/11/16 Rosuvastatin Calcium [Crestor] 10 mg PO BEDTIME 02/11/16 Sucralfate [Carafate] 1 gm PO ACHS 02/11/16 Aspirin [Aspirin EC] 81 mg PO DAILYWM 02/12/16 Nitroglycerin [Nitrostat] 0.4 mg SL PRN PRN 03/08/16 Hydrocodone/Acetaminophen [Jackson 5-325 Tablet] 1 each PO BID 05/11/16 Lisinopril [Zestril] 2.5 mg PO DAILY #30 tablet 05/12/16 Carvedilol 3.125 mg PO DAILY 09/04/16 Alprazolam [Xanax] 0.5 mg PO PRN PRN 11/15/16 Memantine HCl 10 mg PO BID 11/15/16 Atorvastatin Calcium 20 mg PO DAILY 12/30/16 Calcium Carbonate/Vitamin D3 [Oyster Shell Calcium-Vit D Tab] 1 each PO DAILY Guaifenesin 10 ml PO Q4HR PRN 12/30/16 Disposition Discussed With: Family
[2016-12-30] MEDS ORDERED: NON-FORMULARY MEDICATION (Nitroglycerin [Nitrostat] 0.4 MG) SL PRN ×22 (16:29)
[2016-12-30] MEDS ORDERED: ROBITUSSIN SUGAR-FREE PO PRN (16:29)
[2016-12-30] MEDS ORDERED: XANAX PO PRN (16:29)
[2016-12-30] MEDS ORDERED: LEVAQUIN 250 MG in PREMIX 50 ML D5W 1 BAG IV SCH (16:30)
[2016-12-30] MEDS ORDERED: LEVAQUIN 50 ML IV ONE (16:50)
[2016-12-30] MEDS ORDERED: VANCOMYCIN 1 GM in SODIUM CHLORIDE 250 ML IV ONE (17:00)
[2016-12-30] MEDS: SODIUM CHLORIDE 1,000 ML IV SCH (17:10)
[2016-12-30] MEDS: DUONEB NEB SCH ×2 (17:50→23:58)
[2016-12-30 18:01] VITALS: BMI 22.4
[2016-12-30] MEDS: PROTONIX PO SCH (18:16)
[2016-12-30] MEDS: K-DUR PO SCH ×2 (18:17→22:08)
[2016-12-30] MEDS: CARAFATE PO SCH ×2 (18:17→22:08)
[2016-12-30] MEDS ORDERED: CRESTOR PO SCH (21:00)
[2016-12-30] MEDS: SOLU-MEDROL 40 MG IVP SCH (21:17)
[2016-12-30] MEDS: NORCO 5-325 PO SCH (22:07)
[2016-12-30] MEDS: NAMENDA PO SCH (22:08)
[2016-12-30] MEDS: LIPITOR PO SCH (22:12)
[2016-12-30] MEDS: XANAX PO SCH (22:16)
[2016-12-31] MEDS: DUONEB NEB SCH ×4 (05:14→23:06)
[2016-12-31] MEDS: PROTONIX PO SCH ×2 (05:44→17:50)
[2016-12-31] MEDS: LASIX TAB PO SCH (05:44)
[2016-12-31] MEDS: CARAFATE PO SCH ×4 (05:44→20:31)
[2016-12-31 05:49] LABS: BASOPHILS % (AUTO) 0.6 % (0.0-3.0); EOSINOPHILS % (AUTO) 0.6 % (0.0-7.0); LYMPHOCYTES # (AUTO) 0.4 K/uL (0.60-3.4); LYMPHOCYTES % (AUTO) 25.6 (10.0-50.0); MEAN CORPUSCULAR HGB CONC 34.3 (31.8-35.4); MEAN CORPUSCULAR VOLUME 96.2 fl (81.0-99.0); MONOCYTES # (AUTO) 0.1 K/uL (0.4-2.0); NEUTROPHILS # (AUTO) 1.2 K/ul (2.0-6.9); NEUTROPHILS % (AUTO) 70.2; PLATELET COUNT 145 10^3/uL (140-440); RED BLOOD COUNT 3.64 10^6/ul (4.20-5.40)
[2016-12-31 05:55] LABS: ALBUMIN 3.2 g/dL (3.4-5.0); ALBUMIN/GLOBULIN RATIO 1.07; ANION GAP 14.6; BILIRUBIN,TOTAL 1.79 mg/dL (0.00-1.20); BUN/CREATININE RATIO 15.86; CALCIUM 9.7 mg/dL (8.2-10.2); CREATININE 1.45 mg/dL (0.60-1.30); POTASSIUM 4.6 mmol/L (3.5-5.10); TOTAL PROTEIN 6.2 g/dL (5.8-8.1)
[2016-12-31 06:14] LABS: WHITE BLOOD COUNT 1.68 K/ul (4.6-10.2)
[2016-12-31] MEDS: K-DUR PO SCH ×4 (08:58→20:31)
[2016-12-31] MEDS: CALCIUM 500 + VIT D 200 MG TABLET PO SCH (08:58)
[2016-12-31] MEDS: NAMENDA PO SCH ×2 (08:58→20:31)
[2016-12-31] MEDS: ASPIRIN EC PO SCH (08:59)
[2016-12-31] MEDS ORDERED: LIPITOR PO SCH (09:00)
[2016-12-31] MEDS: ZESTRIL PO SCH (09:00)
[2016-12-31] MEDS ORDERED: NON-FORMULARY MEDICATION (Lisinopril [Zestril] 2.5 MG) PO SCH ×22 (09:00)
[2016-12-31] MEDS: LOVENOX SUBCUT SCH (09:01)
[2016-12-31] MEDS: PLAVIX PO SCH (09:01)
[2016-12-31] MEDS: SOLU-MEDROL 40 MG IVP SCH ×2 (09:02→20:29)
[2016-12-31] MEDS: NORCO 5-325 PO SCH ×2 (09:17→20:32)
[2016-12-31] MEDS: COREG PO SCH (09:17)
[2016-12-31] MEDS: ROCEPHIN 1 GM in SODIUM CHLORIDE 50 ML IV SCH (09:17)
[2016-12-31] MEDS: VANCOMYCIN 500 MG in SODIUM CHLORIDE 100 ML IV SCH (10:42)
--- NOTE | 2016-12-31 11:02 | PN ---
DATE OF SERVICE: 12/30/16 - ADMITTING NOTE - The patient was seen in the emergency room. HISTORY OF PRESENT ILLNESS: 81-year-old white female was hospitalized because of cough and congestion with abnormal chest x-ray. The patient's condition has been deteriorating. She is a resident of the senior care. The patient's appetite is poor. The patient is confused, unable to give any proper history. She wants to go home. She doesn't remember whether she has come from the senior care or not. She was confused. REVIEW OF SYSTEMS: CONSTITUTIONAL:Weakness. No night sweats. No fever or chills. HEENT: Eyes: No visual changes. No eye pain. No eye discharge. ENT: No runny nose. No epistaxis. No sinus pain. No sore throat. No odynophagia. No congestion. RESPIRATORY: Cough and congestion. No hemoptysis. CARDIOVASCULAR: No angina symptoms. No CHF symptoms. No atypical chest pain for CAD. No palpitations. No shortness of breath. GASTROINTESTINAL: Poor appetite. No abdominal pain. No nausea or vomiting. No diarrhea or constipation. No hematemesis. No hematochezia. GENITOURINARY: No urgency. No frequency. No dysuria. No hematuria. No obstructive symptoms. No discharge. No pain. No significant abnormal bleeding. MUSCULOSKELETAL: Body is emaciated. NEUROLOGICAL: No headache. No neck pain. No syncope. No seizures. No dizziness. PSYCHIATRIC: Not anxious. No depression. No suicidal thoughts. No homicidal thoughts. SKIN: Dry. No rash. No lesions. No wounds. ENDOCRINE: No unexplained weight loss. No weight gain. HEMATOLOGIC/LYMPHATIC: No anemia. No purpura. No petechiae. No prolonged or excessive bleeding. No palpable lymph nodes. PHYSICAL EXAMINATION: VITAL SIGNS: HEENT: Head normocephalic, atraumatic. Face looks thin. Eyes: Extraocular muscles are intact. Pupils are equal, round and reactive to light and accommodation. Ears: No lesions. Nose appeared normal. Sclerae nonicteric. Throat: No exudate or erythema. Skin dry. Mucous membranes dry. NECK: Supple. No JVP, no carotid bruit. No lymphadenopathy or thyromegaly. LUNGS: Lower lobe crepitations bilaterally. Percussion note normal. Chest symmetrical. HEART: S1, S2, no S3. No murmurs. No cyanosis or clubbing. No ascites. Pulses: Dorsalis pedis and posterior tibial pulses +1 to +2 both sides. ABDOMEN: Soft. Nontender. Bowel sounds active. No CVA tenderness. No mass felt. EXTREMITIES: No edema. Full range of motion of all extremities, equal. NEUROLOGIC: Confused but alert. No focal deficit. Cranial nerves II through XII are grossly intact. No headache, no double vision or headache. SKIN: Not dry. Intact. Turgor - normal. LYMPHATIC: No palpable lymph nodes/no lymphedema. MUSCULOSKELETAL: Normal joints with no swelling. Body is somewhat emaciated. ASSESSMENT: 1. BILATERAL MULTIFOCAL PNEUMONIA, LIKELY ASPIRATION PNEUMONITIS, COULD BE ASPIRATION PER CT SCAN OF THE CHEST. 2. DEHYDRATION 3. CKD 4. CARDIOMEGALY 5. HISTORY OF CHF 6. CORONARY ARTERY DISEASE 7. DEMENTIA LABS: ABG showed p02 of 83, pc02 36, pH 7.48 on room air. Creatinine 1.6, BUN 25, fairly abnormal SGOT. BNP 400 which is slightly elevated. Procalcitonin normal. Lactic acid normal. Hemoglobin 11.6, hematocrit 33, WBC 3,000 which is leukopenia. PLAN: 1. IV fluids 2. Watch for fluid overload 3. IV antibiotics 4. Steroids 5. Will also do routine lab tests in the morning, CBC, CMP, EKG, telemetry, et cetera. CONDITION: Stable but critical. TIME SPENT: More than 30 minutes. Plan and coordination of the patient's care discussed in the presence of nurse. SUDHIR
[2016-12-31] MEDS: SODIUM CHLORIDE 1,000 ML IV SCH (19:31)
[2016-12-31] MEDS: XANAX PO SCH (20:32)
[2016-12-31] MEDS: LIPITOR PO SCH (20:32)
[2017-01-01] MEDS: DUONEB NEB SCH ×4 (05:12→23:39)
[2017-01-01 06:04] LABS: ALBUMIN 2.9 g/dL (3.4-5.0); ALBUMIN/GLOBULIN RATIO 1.16; ANION GAP 10.3; BILIRUBIN,TOTAL 1.08 mg/dL (0.00-1.20); BUN/CREATININE RATIO 17.6; CALCIUM 9.2 mg/dL (8.2-10.2); CREATININE 1.25 mg/dL (0.60-1.30); POTASSIUM 5.3 mmol/L (3.5-5.10); TOTAL PROTEIN 5.4 g/dL (5.8-8.1)
[2017-01-01 06:11] LABS: BASOPHILS % (AUTO) 0.1 % (0.0-3.0); HEMATOCRIT 31.1 % (37.0-47.0); HEMOGLOBIN 10.7 g/dl (12.0-16.0); IMMATURE GRANULOCYTE % (AUTO) 0.3 % (0.0-5.0); LYMPHOCYTES # (AUTO) 0.6 K/uL (0.60-3.4); LYMPHOCYTES % (AUTO) 5.5 (10.0-50.0); MEAN CORPUSCULAR HEMOGLOBIN 33.3 pg (27.0-31.0); MEAN CORPUSCULAR HGB CONC 34.4 (31.8-35.4); MEAN CORPUSCULAR VOLUME 96.9 fl (81.0-99.0); MONOCYTES # (AUTO) 0.3 K/uL (0.4-2.0); MONOCYTES % (AUTO) 2.9 (0-10); NEUTROPHILS # (AUTO) 9.4 K/ul (2.0-6.9); NEUTROPHILS % (AUTO) 91.2; PLATELET COUNT 147 10^3/uL (140-440); RED BLOOD COUNT 3.21 10^6/ul (4.20-5.40)
[2017-01-01 06:12] LABS: WHITE BLOOD COUNT 10.28 K/ul (4.6-10.2)
[2017-01-01] MEDS: LASIX TAB PO SCH (06:25)
[2017-01-01] MEDS: PROTONIX PO SCH ×2 (06:25→16:07)
[2017-01-01] MEDS: CARAFATE PO SCH ×4 (06:25→20:13)
[2017-01-01] MEDS: LOVENOX SUBCUT SCH (08:51)
[2017-01-01] MEDS: ROCEPHIN 1 GM in SODIUM CHLORIDE 50 ML IV SCH (08:51)
[2017-01-01] MEDS: ZESTRIL PO SCH (08:52)
[2017-01-01] MEDS: NAMENDA PO SCH ×2 (08:52→20:10)
[2017-01-01] MEDS: PLAVIX PO SCH (08:52)
[2017-01-01] MEDS: CALCIUM 500 + VIT D 200 MG TABLET PO SCH (08:53)
[2017-01-01] MEDS: ASPIRIN EC PO SCH (08:53)
[2017-01-01] MEDS: COREG PO SCH (08:53)
[2017-01-01] MEDS: NORCO 5-325 PO SCH ×2 (08:53→20:10)
[2017-01-01] MEDS: SOLU-MEDROL 40 MG IVP SCH ×2 (09:49→20:08)
[2017-01-01] MEDS: VANCOMYCIN 500 MG in SODIUM CHLORIDE 100 ML IV SCH (09:49)
[2017-01-01] MEDS: SODIUM CHLORIDE 1,000 ML IV SCH (09:50)
[2017-01-01] MEDS: XANAX PO SCH (20:09)
[2017-01-01] MEDS: LIPITOR PO SCH (20:10)
[2017-01-02] MEDS: XANAX PO PRN (01:36)
[2017-01-02] MEDS: DUONEB NEB SCH ×4 (05:10→23:05)
[2017-01-02 05:13] LABS: BASOPHILS % (AUTO) 0.1 % (0.0-3.0); HEMATOCRIT 31.5 % (37.0-47.0); HEMOGLOBIN 10.8 g/dl (12.0-16.0); IMMATURE GRANULOCYTE % (AUTO) 0.7 % (0.0-5.0); LYMPHOCYTES # (AUTO) 0.5 K/uL (0.60-3.4); LYMPHOCYTES % (AUTO) 4.2 (10.0-50.0); MEAN CORPUSCULAR HEMOGLOBIN 33.1 pg (27.0-31.0); MEAN CORPUSCULAR HGB CONC 34.3 (31.8-35.4); MEAN CORPUSCULAR VOLUME 96.6 fl (81.0-99.0); MONOCYTES # (AUTO) 0.3 K/uL (0.4-2.0); MONOCYTES % (AUTO) 2.8 (0-10); NEUTROPHILS # (AUTO) 10.3 K/ul (2.0-6.9); NEUTROPHILS % (AUTO) 92.2; PLATELET COUNT 187 10^3/uL (140-440); RED BLOOD COUNT 3.26 10^6/ul (4.20-5.40); WHITE BLOOD COUNT 11.14 K/ul (4.6-10.2)
[2017-01-02 05:31] LABS: ALBUMIN 2.8 g/dL (3.4-5.0); ALBUMIN/GLOBULIN RATIO 1.12; ANION GAP 12.5; BILIRUBIN,TOTAL 0.85 mg/dL (0.00-1.20); BUN/CREATININE RATIO 16.8; CALCIUM 9.4 mg/dL (8.2-10.2); CREATININE 1.19 mg/dL (0.60-1.30); POTASSIUM 4.5 mmol/L (3.5-5.10); TOTAL PROTEIN 5.3 g/dL (5.8-8.1)
[2017-01-02] MEDS: CARAFATE PO SCH ×4 (05:37→20:34)
[2017-01-02] MEDS: PROTONIX PO SCH ×2 (05:37→17:22)
[2017-01-02] MEDS: LASIX TAB PO SCH (05:38)
[2017-01-02] MEDS: ROCEPHIN 1 GM in SODIUM CHLORIDE 50 ML IV SCH (08:31)
[2017-01-02] MEDS: LOVENOX SUBCUT SCH (08:31)
[2017-01-02] MEDS: CALCIUM 500 + VIT D 200 MG TABLET PO SCH (08:32)
[2017-01-02] MEDS: PLAVIX PO SCH (08:32)
[2017-01-02] MEDS: NAMENDA PO SCH ×2 (08:32→20:34)
[2017-01-02] MEDS: ASPIRIN EC PO SCH (08:32)
[2017-01-02] MEDS: ZESTRIL PO SCH (08:32)
[2017-01-02] MEDS: COREG PO SCH (08:33)
[2017-01-02] MEDS: NORCO 5-325 PO SCH ×2 (08:35→20:34)
[2017-01-02] MEDS: VANCOMYCIN 500 MG in SODIUM CHLORIDE 100 ML IV SCH (09:32)
[2017-01-02] MEDS: SOLU-MEDROL 40 MG IVP SCH ×2 (09:35→20:35)
[2017-01-02] MEDS ORDERED: MILK OF MAGNESIA PO PRN (14:03)
[2017-01-02] MEDS: XANAX PO SCH (20:34)
[2017-01-02] MEDS: LIPITOR PO SCH (20:34)
[2017-01-03] MEDS: XANAX PO PRN (01:24)
[2017-01-03 04:38] LABS: BASOPHILS % (AUTO) 0.1 % (0.0-3.0); HEMATOCRIT 33.1 % (37.0-47.0); HEMOGLOBIN 11.4 g/dl (12.0-16.0); IMMATURE GRANULOCYTE % (AUTO) 0.8 % (0.0-5.0); LYMPHOCYTES # (AUTO) 0.5 K/uL (0.60-3.4); LYMPHOCYTES % (AUTO) 4.5 (10.0-50.0); MEAN CORPUSCULAR HEMOGLOBIN 33.3 pg (27.0-31.0); MEAN CORPUSCULAR HGB CONC 34.4 (31.8-35.4); MEAN CORPUSCULAR VOLUME 96.8 fl (81.0-99.0); MONOCYTES # (AUTO) 0.4 K/uL (0.4-2.0); MONOCYTES % (AUTO) 3.5 (0-10); NEUTROPHILS % (AUTO) 91.1; PLATELET COUNT 192 10^3/uL (140-440); RED BLOOD COUNT 3.42 10^6/ul (4.20-5.40)
[2017-01-03] MEDS: DUONEB NEB SCH ×2 (04:54→11:04)
[2017-01-03 04:57] LABS: ALBUMIN 2.9 g/dL (3.4-5.0); ALBUMIN/GLOBULIN RATIO 1.16; ANION GAP 12.7; BILIRUBIN,TOTAL 0.78 mg/dL (0.00-1.20); BUN/CREATININE RATIO 15.44; CALCIUM 9.7 mg/dL (8.2-10.2); CREATININE 1.23 mg/dL (0.60-1.30); POTASSIUM 4.7 mmol/L (3.5-5.10); TOTAL PROTEIN 5.4 g/dL (5.8-8.1)
[2017-01-03] MEDS: CARAFATE PO SCH ×2 (05:53→10:57)
[2017-01-03] MEDS: LASIX TAB PO SCH (05:53)
[2017-01-03] MEDS: PROTONIX PO SCH (05:53)
[2017-01-03] MEDS: SOLU-MEDROL 40 MG IVP SCH (09:41)
[2017-01-03] MEDS: ASPIRIN EC PO SCH (09:54)
[2017-01-03] MEDS: CALCIUM 500 + VIT D 200 MG TABLET PO SCH (09:54)
[2017-01-03] MEDS: COREG PO SCH (09:55)
[2017-01-03] MEDS: LOVENOX SUBCUT SCH (09:55)
[2017-01-03] MEDS: PLAVIX PO SCH (09:56)
[2017-01-03] MEDS: NAMENDA PO SCH (09:56)
[2017-01-03] MEDS: ZESTRIL PO SCH (09:56)
[2017-01-03] MEDS: NORCO 5-325 PO SCH (09:56)
[2017-01-03] MEDS: ROCEPHIN 1 GM in SODIUM CHLORIDE 50 ML IV SCH (09:56)
--- NOTE | 2017-01-03 10:50 | DI ---
EXAM: Chest one view, frontal view only. HISTORY: Cough. COMPARISON: 12/30/2016. FINDINGS: Dual lead right-sided pacemaker is present. Heart is enlarged. There is blunting of the right costophrenic angle with mild right basilar consolidation. Left lung is clear. No pneumothor ax identified. Advanced degenerative changes of both shoulders noted. IMPRESSION: Right basilar consolidation and small right pleural effusion, possibly due to pneumonia.
[2017-01-03] MEDS: VANCOMYCIN 500 MG in SODIUM CHLORIDE 100 ML IV SCH (10:57)
--- NOTE | 2017-01-03 11:56 | PCM.PROG ---
Attending Provider: ATTENDING PROVIDER: Dr. MARK WATSON DATE OF SERVICE: 01/03/17 SUBJECTIVE: This 81 year old BLACK/ F was hospitalized 12/30/16 with pneumonia. The patient's condition has steadily improved on antibiotics and she is feeling a lot better. She is alert and happy because her daughter is back. The patient will be discharged home. The patient's daughter is in the room. The patient is alert this morning. No cough. She has been afebrile. Labs have improved. The patient is not on any oxygen 95% saturation. REVIEW OF SYSTEMS: CONSTITUTIONAL: Fatigue. No night sweats. No fever or chills. HEENT: Eyes: No visual changes. No eye pain. No eye discharge. ENT: No runny nose. No epistaxis. No sinus pain. No odynophagia. No congestion. RESPIRATORY: No cough, no congestion. No hemoptysis. CARDIOVASCULAR: No angina symptoms. No CHF symptoms. No atypical chest pain for CAD. No palpitations. No shortness of breath. GASTROINTESTINAL: No abdominal pain. No nausea or vomiting. No diarrhea or constipation. No hematemesis. No hematochezia. GENITOURINARY: No urgency. No frequency. No dysuria. No hematuria. No obstructive symptoms. No discharge. No pain. No significant abnormal bleeding. MUSCULOSKELETAL: No musculoskeletal pain; no joint swelling. NEUROLOGICAL: Awake, alert, oriented to person and place. No headache. No neck pain. No syncope. No seizures. No dizziness. PSYCHIATRIC: Not anxious. No depression. No suicidal thoughts. No homicidal thoughts. SKIN: No rash. No lesions. No wounds. ENDOCRINE: No unexplained weight loss. No weight gain. HEMATOLOGIC/LYMPHATIC: No anemia. No purpura. No petechiae. No prolonged or excessive bleeding. No palpable lymph nodes. PHYSICAL EXAMINATION: GENERAL: The patient is oriented to person and place lying in bed in no distress. VITAL SIGNS: Temperature 96.2 F, Pulse 54, Respiratory Rate 14, BP 109/68, Pulse Ox 95% HEENT: Head normocephalic, atraumatic. Eyes: Extraocular muscles are intact. Pupils are equal, round and reactive to light and accommodation. Ears: No lesions. Nose appeared normal. Throat: No exudate or erythema. NECK: Supple. No JVD, no carotid bruit. No lymphadenopathy or thyromegaly. LUNGS: Clear to auscultation. dec bilaterally. Percussion note normal. Chest symmetrical. HEART: S1, S2, no S3. No murmurs. No cyanosis or clubbing. No ascites. Pulses: Dorsalis pedis and posterior tibial pulses +1 to +2 both sides. ABDOMEN: Soft. Non-tender. Bowel sounds active. No CVA tenderness. No mass felt. EXTREMITIES: No edema. Full range of motion of all extremities, equal. NEUROLOGIC: No focal deficit. Cranial nerves II through XII are grossly intact. No headache, no double vision or headache. SKIN: Not dry. Intact. Turgor-normal. LYMPHATIC: No palpable lymph nodes/no lymphedema. MUSCULOSKELETAL: Normal joints with no swelling. Muscle tone is normal. LAB REVIEW: 01/03/17 04:37 01/03/17 04:37 01/03/17 04:37: WBC 11.00 H, RBC 3.42 L, Hgb 11.4 L, Hct 33.1 L, MCV 96.8, MCH 33.3 H, MCHC 34.4, RDW Coeff of Juan 12.7, Plt Count 192, Immature Gran % (Auto) 0.8, Neut % (Auto) 91.1, Lymph % (Auto) 4.5 L, Nye % (Auto) 3.5, Eos % (Auto) 0.0, Baso % (Auto) 0.1, Immature Gran # (Auto) 0.1, Neut # 10.0 H, Lymph # 0.5 L , Nye # 0.4, Eos # 0.0, Baso # 0.0, Sodium 134 L, Potassium 4.7, Chloride 100, Carbon Dioxide 26, Anion Gap 12.7, BUN 19 H, Creatinine 1.23, Estimated GFR ( MDRD) 51.00, BUN/Creatinine Ratio 15.44, Glucose 142 H, Calcium 9.7, Total Bilirubin 0.78, AST 41 H, ALT 41, Alkaline Phosphatase 128, Total Protein 5.4 L , Albumin 2.9 L, Globulin 2.5, Albumin/Globulin Ratio 1.16 The patient's WBC count is up to 11,000. It was low on admission. Hemoglobin and hematocrit are stable. Kidney functions are much better at 1.29 and they were quite elevated with azotemia which has resolved. The patient's chest x-ray showed clearance of infiltrate on one side and consolidation which is very likely atelectasis. The patient has clear lungs, no fever, no cough and no congestion. Normal WBC count. ASSESSMENT: 1. Bilateral pneumonia 2. Dehydration PLAN: 1. Chest x-ray this a.m. 2. Anticipate discharge to [facility] today. 3. Will discharge with Keflex 500 mg t.i.d. times one week. 4. Prednisone 10 mg b.i.d. times five days. 5. Duoneb b.i.d. times one week. Plan and coordination of the patient's care discussed in the presence of Global Supply Chain Director and nurse. The patient was seen and examined with nurse practitioner, Elvia. CONDITION: Stable SCRIBED BY: Seun SENIORist scribed while in presence of service performed by Dr. MARK WATSON/ELVIA BHANDARI APRN on 01/03/17 ([id number])
--- NOTE | 2017-01-03 14:23 | CM.DICTOOL ---
ADMISSION: 12/30/16 16:38 DISCHARGE: January 03, 2017 DATE OF SERVICE: 01/03/17 FINAL DIAGNOSIS Pneumonia, bilateral multifocal Dehydration Cardiomegaly Hypertension CAD with Stent application [place] CHF COPD Anemia GERD CKD Anxiety Dementia Arthritis Pacemaker Left Knee Replacement Cholecystectomy Hysterectomy LAST VITALS Temp Pulse Resp BP Pulse Ox 98.1 F 70 20 118/68 96 01/03/17 10:00 01/03/17 10:00 01/03/17 10:00 01/03/17 10:00 01/03/17 10:00 ACTIVE HOME MEDICATIONS Acetaminophen/Hydrocodone Bitart ([place] 5-325) 1 tab PO BID [facility] Last Admin: 01/03/17 09:56 Dose: 1 tab Albuterol/Ipratropium (Duoneb) 1 vial NEB BID [facility] Last Admin: 01/03/17 11:04 Dose: 1 vial Alprazolam (Xanax) 0.25 mg PO BEDTIME [facility] Last Admin: 01/02/17 20:34 Dose: 0.25 mg Alprazolam (Xanax) 0.25 mg PO DAILY PRN PRN Reason: ANXIETY Last Admin: 01/03/17 01:24 Dose: 0.25 mg Aspirin (Aspirin Ec) 81 mg PO DAILYWM [facility] Last Admin: 01/03/17 09:54 Dose: 81 mg Atorvastatin Calcium (Lipitor) 20 mg PO BEDTIME [facility] Last Admin: 01/02/17 20:34 Dose: 20 mg Calcium/Vitamin D (Calcium 500 + Vit D 200 Mg Tablet) 1 each PO DAILY [facility] Last Admin: 01/03/17 09:54 Dose: 1 each Carvedilol (Coreg) 3.125 mg PO DAILYWM [facility] Last Admin: 01/03/17 09:55 Dose: 3.125 mg Clopidogrel Bisulfate (Plavix) 75 mg PO DAILY [facility] Last Admin: 01/03/17 09:56 Dose: 75 mg Furosemide (Lasix Tab) 40 mg PO QDAC [facility] Last Admin: 01/03/17 05:53 Dose: 40 mg Guaifenesin (Robitussin Sugar-Free) 10 ml PO Q4HR PRN PRN Reason: Cough Lisinopril (Zestril) 2.5 mg PO DAILY [facility] Last Admin: 01/03/17 09:56 Dose: 2.5 mg Magnesium Hydroxide (Milk Of Magnesia) 30 ml PO DAILY PRN PRN Reason: Constipation Last Admin: 01/02/17 17:22 Dose: 30 ml Memantine (Namenda) 10 mg PO BID [facility] Last Admin: 01/03/17 09:56 Dose: 10 mg Non-Formulary Medication (Nitroglycerin [Nitrostat]) 0.4 mg SL Q5MIN X 3 DOSES PRN PRN Reason: Chest Pain Pantoprazole Sodium (Protonix) 40 mg PO BIDAC [facility] Last Admin: 01/03/17 05:53 Dose: 40 mg Sucralfate (Carafate) 1 gm PO ACHS [facility] Last Admin: 01/03/17 10:57 Dose: 1 gm ALLERGIES Penicillins Adverse Reaction (Verified 12/30/16 14:47) pneumococcal vaccine Adverse Reaction (Verified 12/30/16 14:47) flu vaccine Adverse Reaction (Unknown, Uncoded 11/15/16 18:47) NEW PRESCRIPTIONS: Duonebs 1 treatment BID for 7 days Keflex 500 mg TID for 7 days Prednisone 10 mg BID for 5 days Give with Food SMOKING: Not Applicable DISEASE SPECIFIC EDUCATION: Not Applicable; patient has dementia LAB REVIEW: 01/03/17 04:37 01/03/17 04:37 01/03/17 04:37: WBC 11.00 H, RBC 3.42 L, Hgb 11.4 L, Hct 33.1 L, MCV 96.8, MCH 33.3 H, MCHC 34.4, RDW Coeff of Juan 12.7, Plt Count 192, Immature Gran % (Auto) 0.8, Neut % (Auto) 91.1, Lymph % (Auto) 4.5 L, Boone % (Auto) 3.5, Eos % (Auto) 0.0, Baso % (Auto) 0.1, Immature Gran # (Auto) 0.1, Neut # 10.0 H, Lymph # 0.5 L , Boone # 0.4, Eos # 0.0, Baso # 0.0, Sodium 134 L, Potassium 4.7, Chloride 100, Carbon Dioxide 26, Anion Gap 12.7, BUN 19 H, Creatinine 1.23, Estimated GFR ( MDRD) 51.00, BUN/Creatinine Ratio 15.44, Glucose 142 H, Calcium 9.7, Total Bilirubin 0.78, AST 41 H, ALT 41, Alkaline Phosphatase 128, Total Protein 5.4 L , Albumin 2.9 L, Globulin 2.5, Albumin/Globulin Ratio 1.16 PLAN: Discharge to [facility] Diet: Regular, Pureed SEED POTATO CUTTER modified with thin liquids Dietitian to see for optimal nutritional intake Activity: Up to dining room for meals, may participate in activities Orders: PT/OT evaluation and treat Speech therapy evaluation and treat Vital Signs daily for one week, then weekly Assist to bathroom prn Incontinent care prn Decubitus precautions prn CBC, CMP in one week, then monthly Fasting accu-checks twice weekly Patient to be seen on alf rounds by Dr. Bahena/ROME Monroe in 7 -10 days. Ms. Gutierrez is alert to person. She is able to feed herself a pureed diet. Meal intakes have been good at 50-100%. The patient requires assistance with bathing and transfers due to confusion. She requires assistance of one staff member with transfers. Skin is free of decubitus ulcers, rashes or irritation. She has been afebrile during her hospital stay. Jeremiah Bahena MD
[2017-01-03 15:15] VITALS: BP 92/43; TEMP 98.2
--- NOTE | 2017-01-04 14:08 | PN ---
DATE OF SERVICE: 12/31/16 SUBJECTIVE: The patient is an 81 year old black female hospitalized with bilateral pneumonia likely aspiration. She was also dehydrated. The patient's condition seems to have improved and her hydration status is better. She is more alert and wants to go home. REVIEW OF SYSTEMS: CONSTITUTIONAL: No night sweats. No fatigue, malaise, lethargy. No fever or chills. HEENT: Eyes: No visual changes. No eye pain. No eye discharge. ENT: No runny nose. No epistaxis. No sinus pain. No sore throat. No odynophagia. No congestion. RESPIRATORY: No cough, no congestion. No hemoptysis. CARDIOVASCULAR: No angina symptoms. No CHF symptoms. No atypical chest pain for CAD. No palpitations. No shortness of breath. No PND. No orthopnea. GASTROINTESTINAL: No abdominal pain. No nausea or vomiting. No diarrhea or constipation. No hematemesis. No hematochezia. GENITOURINARY: No urgency. No frequency. No dysuria. No hematuria. No obstructive symptoms. No discharge. No pain. No significant abnormal bleeding. MUSCULOSKELETAL: No musculoskeletal pain; no joint swelling. NEUROLOGICAL: No headache. No neck pain. No syncope. No seizures. No dizziness. PSYCHIATRIC: Not anxious. No depression. No suicidal thoughts. No homicidal thoughts. Seems to be confused to persona and place. SKIN: No rash. No lesions. No wounds. ENDOCRINE: No unexplained weight loss. No weight gain. HEMATOLOGIC/LYMPHATIC: No anemia. No purpura. No petechiae. No prolonged or excessive bleeding. No palpable lymph nodes. PHYSICAL EXAMINATION: GENERAL: The patient is confused to person and place. VITAL SIGNS: Temperature 96.7, pulse 74, respiratory rate 16, blood pressure 103/55 and pulse 99%. HEENT: Head normocephalic, atraumatic. Eyes: Extraocular muscles are intact. Pupils are equal, round and reactive to light and accommodation. Ears: No lesions. Nose appeared normal. Throat: No exudate or erythema. NECK: Supple. No JVD, no carotid bruit. No lymphadenopathy or thyromegaly. LUNGS: Decreased breath sounds but clear to auscultation. Percussion note normal. Chest symmetrical. HEART: S1, S2, no S3. No murmurs. No cyanosis or clubbing. No ascites. Pulses: Dorsalis pedis and posterior tibial pulses +1 to +2 both sides. ABDOMEN: Soft. Nontender. Bowel sounds active. No CVA tenderness. No mass felt. EXTREMITIES: No edema. Full range of motion of all extremities, equal. NEUROLOGIC: No focal deficit. Cranial nerves II through XII are grossly intact. No headache, no double vision or headache. SKIN: Not dry. Intact. Turgor - normal. LYMPHATIC: No palpable lymph nodes/no lymphedema. MUSCULOSKELETAL: Normal joints with no swelling. Muscle tone is normal. LABS: Hgb 12, hct 35, WBC 1,600 normal differential, creatinine 1.4, BUN 23, potassium 4.6. ASSESSMENT: 1. Bilateral pneumonia being treated with Levaquin and will switch it to Rocephin. The patient's leukopenia suggests could be viral infection but it could be aspiration. PLAN: 1. Continue Steroids 2. Continue IV fluids 3. Will be watched for fluid overload, today she doesn't have any symptoms of fluid overload 4. Chronic kidney disease functions are improving by labs because of slow hydration. 5. The patient is encouraged to eat. CONDITION: Stable. TIME SPENT: More than 30 minutes. Plan and coordination of the patient's care discussed in the presence of nurse. SUDHIR
--- NOTE | 2017-01-04 14:36 | DS ---
DATE OF SERVICE: 01/03/17 FINAL DIAGNOSES: 1. BILATERAL MULTIFOCAL PNEUMONIA 2. DEHYDRATION 3. CARDIOMEGALY 4. HYPERTENSION 5. CAD WITH STENT 6. CO 7. CHF 8. COPD 9. ANEMIA 10. GERD 11. CKD 12. ANXIETY 13. DEMENTIA 14. OSTEOARTHRITIS 15. HISTORY OF PACEMAKER 16. HISTORY OF LEFT KNEE REPLACEMENT 17. HISTORY OF CHOLECYSTECTOMY 18. HISTORY OF HYSTERECTOMY V/S ON DISCHARGE: Temperature 98.1, pulse 70, respirations, BP 118/68, pulse ox 96% on room air. LABS ON DISCHARGE: White count 11, red blood cells 3.42, hemoglobin 11.4, hematocrit 33.1, platelet 192. Sodium 144, potassium 4.7, chloride 100, BUN 19, creatinine 1.23, glucose 142, AST 41, ALT 41, Alk phos 128, total protein 5.4, albumin 2.9. DISCHARGE INSTRUCTIONS: Followup appointment in days with . MEDICATIONS AT DISCHARGE: 1. [place] 5/325 mg one tablet p.o. b.i.d. 2. Duoneb one nebulization b.i.d. 3. Xanax 0.25 mg p.o. at bedtime 4. Xanax 0.25 mg p.o. daily p.r.n. 5. Aspirin 81 mg p.o. daily 6. Lipitor 20 mg p.o. at bedtime 7. Calcium with Vitamin D p.o. daily 8. Coreg 3.125 mg p.o. daily 9. Plavix 75 mg p.o. daily 10. Lasix 40 mg p.o. daily 11. Guaifenesin 10 mls p.o. q.4hr p.r.n. for cough 12. Zestril 2.5 mg p.o. daily 13. Namenda 10 mg p.o. b.i.d. 14. Nitro 0.4 mg sublingual q.5min times three doses p.r.n. for chest pain 15. Protonix 40 mg p.o. b.i.d. 16. Carafate 1 gm p.o. q.h.s. ALLERGIES: PENICILLIN, PNEUMOCOCCAL VACCINE, FLU VACCINE NEW PRESCRIPTIONS: 1. Duonebs one treatment b.i.d. times 7 days 2. Keflex 500 mg p.o. t.i.d. for 7 days 3. Prednisone 10 mg p.o. b.i.d. times 5 days, give with food. DIET INSTRUCTIONS: Regular diet pureed modified with thin liquids ACTIVITY: Up to dining room for meals. She may participate in activities as tolerated. SMOKING: N/A HOSPITAL COURSE: This is an 81-year-old female who presented to the Emergency Room from [facility] with altered mental status, cough and fever. She has a history of Alzheimer's dementia. She arrived on 12/30/16, was a full code. She presented with fever and cough. CT scan of the chest revealed multifocal bilateral pneumonia along with coronary artery disease. She was subsequently placed on Vancomycin and Levaquin IV. She was then started on oxygen at 2L, placed on Duonebs 3 times daily along with antibiotics. Over the course of her hospital stay she significantly improved. She is eating 75 to 100 % of her meals. Vital signs have stayed steady with a decrease in white blood count. Repeat chest x-ray today shows improving pneumonia with the left lung clear clinically. She was alert and oriented to person this morning. Lung sounds were clear and equal bilaterally. She had no pedal edema. The patient's oxygen saturation was 95% on room air. She was in no distress. At the time of admission, the patient's daughter, Staci, was out of town. We continued to keep Ms. Best in the hospital. Today her daughter Staci has arrived and agrees that she seems significantly improved. The patient will be discharged again to the detention as due to dementia, she is not able to go home by herself. See labs for today. Her condition is stable. Ms. Gutierrez will be discharged to [facility]. Due to improvement with IV Rocephin, the patient will be discharged on Keflex 500 mg p.o. daily times five days and Prednisone 10 mg p.o. b.i.d. times five days. She will also continue Duoneb treatments b.i.d. for 7 days. PLAN: 1. Discharge to [facility] 2. Regular diet pureed modified with thin liquids 3. Activity up to dining room for meals. She may participate in activities as tolerated. 4. Orders: PT/OT evaluation and treat; speech therapy evaluation and treat; vital signs daily times one week then weekly; assist to bathroom p.r.n.; incontinent care p.r.n.; decubitus precautions. Skin is intact upon discharge. CBC, CMP in one week then monthly; fasting Accu-Checks twice weekly. 5. The patient will be seen on detention rounds in 7 to 10 days. TIME SPENT: More than 60 minutes. SUDHIR
--- NOTE | 2017-01-04 14:55 | PN ---
DATE OF SERVICE: 12/30/16 REASON FOR HOSPITALIZATION: Pneumonia HISTORY OF PRESENT ILLNESS: The patient is an 81 year old black female was brought to the emergency room by family because of cough and congestion duration two days. The patient had further work up by ER attending and was noted to have bilateral basilar pneumonia likely aspiration. Examined the patient in the emergency room myself. The patient looked emaciated with poor skin turgor, was confused but alert and wanting to go home. REVIEW OF SYSTEMS: Unable to take because of patient's confusion. She was not in distress. CONSTITUTIONAL: No night sweats. No fatigue, malaise, lethargy. No fever or chills. HEENT: Eyes: No visual changes. No eye pain. No eye discharge. ENT: No runny nose. No epistaxis. No sinus pain. No sore throat. No odynophagia. No ear pain. No congestion. RESPIRATORY: No cough, no congestion. No hemoptysis. CARDIOVASCULAR: No angina symptoms. No CHF symptoms. No atypical chest pain for CAD. No palpitations. No shortness of breath. No PND. No orthopnea. GASTROINTESTINAL: No abdominal pain. No nausea or vomiting. No diarrhea or constipation. No hematemesis. No hematochezia. GENITOURINARY: No urgency. No frequency. No dysuria. No hematuria. No obstructive symptoms. No discharge. No pain. No significant abnormal bleeding. MUSCULOSKELETAL: No musculoskeletal pain. No joint swelling. No arthritis. NEUROLOGICAL: No headache. No neck pain. No syncope. No seizures. No dizziness. PSYCHIATRIC: Not anxious. No depression. No suicidal thoughts. No homicidal thoughts. SKIN: No rash. No lesions. No wounds. ENDOCRINE: No unexplained weight loss. No weight gain. HEMATOLOGIC/LYMPHATIC: No anemia. No purpura. No petechiae. No prolonged or excessive bleeding. No palpable lymph nodes. PERSONAL/FAMILY/SOCIAL HISTORY: The patient is a resident of the group home. No smoker and no alcohol abuse. usually taken care of by daughter, Tanesha. PAST MEDICAL/SURGICAL PROBLEMS: Dementia Diabetes Hypertension Dyslipidemia Coronary artery disease status post stent DJD spine CKD stage 3 Recurrent UTI L4 compression fracture MEDICATIONS: Xanax 0.25mg at bedtime Clopidogrel 75mg daily Lasix 40mg PO daily DUO NEB Q 4 hours Protonix 40mg PO twice a day K-Dur 20 meq four times a day Carafate 1 gram daily Aspirin one a day Nitroglycerin PRN [place] 5-325mg twice a day Lisinopril 2.5mg PO daily Carvedilol 3.125mg daily Xanax 0.5mg PRN Namenda 10mg twice a day Lipitor 20mg at bedtime ALLERGIES: Penicillin Pneumococcal vaccine Flu vaccine PHYSICAL EXAMINATION: GENERAL: The patient is alert but confused. VITAL SIGNS: Temperature 98, pulse 72, respiratory rate 16, blood pressure 82/ 52 and pulse ox 95%. HEENT: Head normocephalic, atraumatic. Eyes: Extraocular muscles are intact. Pupils are equal, round and reactive to light and accommodation. Ears: No lesions. Nose appeared normal. Throat: No exudate or erythema. Mucosa membrane dry. Face is symmetrical. NECK: Supple. No JVD, no carotid bruit. No lymphadenopathy or thyromegaly. LUNGS: Decrease breath sounds with mild wheeze. Percussion note normal. Chest symmetrical. HEART: S1, S2, no S3. No murmurs. No cyanosis or clubbing. No ascites. Pulses: Dorsalis pedis and posterior tibial pulses +1 to +2 both sides. ABDOMEN: Soft. Nontender. Bowel sounds active. No CVA tenderness. No mass felt. EXTREMITIES: No edema. Full range of motion of all extremities, equal. emaciated. Moving all her extremities. NEUROLOGIC: No focal deficit. Cranial nerves II through XII are grossly intact. No headache, no double vision or headache. SKIN: Dry. Intact. Turgor - normal. LYMPHATIC: No palpable lymph nodes/no lymphedema. MUSCULOSKELETAL: Normal joints with no swelling. Muscle tone is normal. LABS: Creatinine 1.6, BUN 25, potassium 4.8,hgb 11.6, hct 33, WBC 3,000. ABG pO2 83, pCO2 36, pH 7.48 with 97% saturation. Troponin normal, BNP 400, procalcitonin normal. ASSESSMENT: 1. Bilateral pneumonia likely aspiration 2. Dehydration 3. Renal azotemia 4. Dementia 5. Diabetes mellitus 6. Hypertension 7. Dependant edema 8. Coronary artery disease with stent 9. History of CHF 10.Chronic kidney disease 11.DJD Spine PLAN: 1. Slow IV fluids 2. Watch for fluid overload 3. IV antibiotics 4. Telemetry 5. NEBS treatment 6. CBC and CMP 7. Steroids CONDITION: Stable PROGNOSIS: Guarded TIME SPENT: More than 70 minutes. MTDD
--- NOTE | 2017-01-04 15:23 | PN ---
DATE OF SERVICE: 01/01/17 SUBJECTIVE: The patient is a 81 year old black female hospitalized with pneumonia bilateral. The patient's condition seems to have improved. The patient's granddaughter is in the room. The patient is sitting up in the chair and eating and wanting to go home. She doesn't know that she stays in the care home now. Daughter is out of town. REVIEW OF SYSTEMS: CONSTITUTIONAL: No night sweats. No fatigue, malaise, lethargy. No fever or chills. HEENT: Eyes: No visual changes. No eye pain. No eye discharge. ENT: No runny nose. No epistaxis. No sinus pain. No sore throat. No odynophagia. No congestion. RESPIRATORY: No cough, no congestion. No hemoptysis. CARDIOVASCULAR: No angina symptoms. No CHF symptoms. No atypical chest pain for CAD. No palpitations. No shortness of breath. No PND. No orthopnea. GASTROINTESTINAL: No abdominal pain. No nausea or vomiting. No diarrhea or constipation. No hematemesis. No hematochezia. Appetite seem to be improving. GENITOURINARY: No urgency. No frequency. No dysuria. No hematuria. No obstructive symptoms. No discharge. No pain. No significant abnormal bleeding. Hydration status seems to have improved. MUSCULOSKELETAL: No musculoskeletal pain; no joint swelling. NEUROLOGICAL: No headache. No neck pain. No syncope. No seizures. No dizziness. PSYCHIATRIC: Not anxious. No depression. No suicidal thoughts. No homicidal thoughts. SKIN: No rash. No lesions. No wounds. ENDOCRINE: No unexplained weight loss. No weight gain. HEMATOLOGIC/LYMPHATIC: No anemia. No purpura. No petechiae. No prolonged or excessive bleeding. No palpable lymph nodes. PHYSICAL EXAMINATION: GENERAL: The patient is alert but confused. VITAL SIGNS: Temperature 97, pulse 70, respiratory rate 18, blood pressure 106/ 52 and pulse ox 97%. HEENT: Head normocephalic, atraumatic. Eyes: Extraocular muscles are intact. Pupils are equal, round and reactive to light and accommodation. Ears: No lesions. Nose appeared normal. Throat: No exudate or erythema. NECK: Supple. No JVD, no carotid bruit. No lymphadenopathy or thyromegaly. LUNGS: Decreased breath sounds but clear to auscultation. Percussion note normal. Chest symmetrical. HEART: S1, S2, no S3. No murmurs. No cyanosis or clubbing. No ascites. Pulses: Dorsalis pedis and posterior tibial pulses +1 to +2 both sides. ABDOMEN: Soft. Nontender. Bowel sounds active. No CVA tenderness. No mass felt. EXTREMITIES: No edema. Full range of motion of all extremities, equal. NEUROLOGIC: No focal deficit. Cranial nerves II through XII are grossly intact. No headache, no double vision or headache. SKIN: Not dry. Intact. Turgor - better. LYMPHATIC: No palpable lymph nodes/no lymphedema. MUSCULOSKELETAL: Normal joints with no swelling. Muscle tone is normal. LABS: Hgb 10.7, hct 31, WBC 10,200 normal differential, creatinine 1.2, BUN 22, potassium 5.3. ASSESSMENT: 1. Pneumonia seems to be resolving clinically 2. Dehydration seems to be improving with improvement in the renal functions 3. No evidence of fluid overload 4. History of CHF 5. Hyperkalemia PLAN: 1. Discontinue the potassium supplements 2. Will discontinue IV fluids after the present bag of IV fluids is over 3. Continue IV antibiotics steroids CONDITION: Stable TIME SPENT: More than 30 minutes. Plan and coordination of the patient's care discussed in the presence of nurse. SUDHIR
--- NOTE | 2017-01-04 15:46 | PN ---
DATE OF SERVICE: 01/02/17 SUBJECTIVE: The patient is a 81 year old black female hospitalized with pneumonia. The patient also had dehydration. The patient's hydration status has improved and she is more alert and asking questions. She wants to know when she can go home. REVIEW OF SYSTEMS: CONSTITUTIONAL: No night sweats. No fatigue, malaise, lethargy. No fever or chills. HEENT: Eyes: No visual changes. No eye pain. No eye discharge. ENT: No runny nose. No epistaxis. No sinus pain. No sore throat. No odynophagia. No congestion. RESPIRATORY: No cough, no congestion. No hemoptysis. CARDIOVASCULAR: No angina symptoms. No CHF symptoms. No atypical chest pain for CAD. No palpitations. No shortness of breath. No PND. No orthopnea. GASTROINTESTINAL: No abdominal pain. No nausea or vomiting. No diarrhea or constipation. No hematemesis. No hematochezia. Appetite has improved. GENITOURINARY: No urgency. No frequency. No dysuria. No hematuria. No obstructive symptoms. No discharge. No pain. No significant abnormal bleeding. MUSCULOSKELETAL: No musculoskeletal pain; no joint swelling. NEUROLOGICAL: No headache. No neck pain. No syncope. No seizures. No dizziness. She is still confused but alert following the objects easily and asking questions which to some extent are appropriate. PSYCHIATRIC: Not anxious. No depression. No suicidal thoughts. No homicidal thoughts. SKIN: No rash. No lesions. No wounds. ENDOCRINE: No unexplained weight loss. No weight gain. HEMATOLOGIC/LYMPHATIC: No anemia. No purpura. No petechiae. No prolonged or excessive bleeding. No palpable lymph nodes. PHYSICAL EXAMINATION: GENERAL: The patient is alert. VITAL SIGNS: Temperature 96.3, pulse 74, respiratory rate 18, blood pressure 100/57 and pulse ox 99%. HEENT: Head normocephalic, atraumatic. Eyes: Extraocular muscles are intact. Pupils are equal, round and reactive to light and accommodation. Ears: No lesions. Nose appeared normal. Throat: No exudate or erythema. NECK: Supple. No JVD, no carotid bruit. No lymphadenopathy or thyromegaly. LUNGS: Decreased breath sounds but clear to auscultation. Percussion note normal. Chest symmetrical. HEART: S1, S2, no S3. No murmurs. No cyanosis or clubbing. No ascites. Pulses: Dorsalis pedis and posterior tibial pulses +1 to +2 both sides. ABDOMEN: Soft. Nontender. Bowel sounds active. No CVA tenderness. No mass felt. EXTREMITIES: No edema. Full range of motion of all extremities, equal. NEUROLOGIC: No focal deficit. Cranial nerves II through XII are grossly intact. No headache, no double vision or headache. SKIN: Not dry. Intact. Turgor - normal. LYMPHATIC: No palpable lymph nodes/no lymphedema. MUSCULOSKELETAL: Normal joints with no swelling. Muscle tone is normal. LABS: Hgb 10.8, hct 31, WBC 11,000 normal differential, creatinine 1.1, BUN 20, potassium 4.5. ASSESSMENT: 1. Pneumonia seems to be resolving 2. Dementia 3. Dehydration, resolved PLAN: 1. Continue IV antibiotics 2. Continue steroids 3. Discontinue IV fluids 4. Continue CBC and CMP every morning 5. Continue to encourage patient to eat The patient's daughter still out of town. CONDITION: Stable TIME SPENT: More than 30 minutes. Plan and coordination of the patient's care discussed in the presence of nurse. SUDHIR
--- NOTE | 2017-01-05 08:05 | PN ---
DATE OF SERVICE: 01/03/17 SUBJECTIVE: The patient is a 81 year old black female hospitalized with pneumonia. The patient's condition has steadily improved on antibiotics and she feeling a lot better. She is alert and happy because her daughter is back. The patient will be discharged home. REVIEW OF SYSTEMS: CONSTITUTIONAL: No night sweats. No fatigue, malaise, lethargy. No fever or chills. HEENT: Eyes: No visual changes. No eye pain. No eye discharge. ENT: No runny nose. No epistaxis. No sinus pain. No sore throat. No odynophagia. No congestion. RESPIRATORY: No cough, no congestion. No hemoptysis. CARDIOVASCULAR: No angina symptoms. No CHF symptoms. No atypical chest pain for CAD. No palpitations. No shortness of breath. GASTROINTESTINAL: No abdominal pain. No nausea or vomiting. No diarrhea or constipation. No hematemesis. No hematochezia. GENITOURINARY: No urgency. No frequency. No dysuria. No hematuria. No obstructive symptoms. No discharge. No pain. No significant abnormal bleeding. MUSCULOSKELETAL: No musculoskeletal pain; no joint swelling. NEUROLOGICAL: No headache. No neck pain. No syncope. No seizures. No dizziness. PSYCHIATRIC: Not anxious. No depression. No suicidal thoughts. No homicidal thoughts. SKIN: No rash. No lesions. No wounds. ENDOCRINE: No unexplained weight loss. No weight gain. HEMATOLOGIC/LYMPHATIC: No anemia. No purpura. No petechiae. No prolonged or excessive bleeding. No palpable lymph nodes. PHYSICAL EXAMINATION: GENERAL: The patient is oriented to person. VITAL SIGNS: Temperature 96.8, pulse 54, respiratory rate 14, blood pressure 109/68 and pulse ox 95%. HEENT: Head normocephalic, atraumatic. Eyes: Extraocular muscles are intact. Pupils are equal, round and reactive to light and accommodation. Ears: No lesions. Nose appeared normal. Throat: No exudate or erythema. NECK: Supple. No JVD, no carotid bruit. No lymphadenopathy or thyromegaly. LUNGS: Clear to auscultation. Percussion note normal. Chest symmetrical. HEART: S1, S2, no S3. No murmurs. No cyanosis or clubbing. No ascites. Pulses: Dorsalis pedis and posterior tibial pulses +1 to +2 both sides. ABDOMEN: Soft. Nontender. Bowel sounds active. No CVA tenderness. No mass felt. EXTREMITIES: No edema. Full range of motion of all extremities, equal. NEUROLOGIC: No focal deficit. Cranial nerves II through XII are grossly intact. No headache, no double vision or headache. SKIN: Not dry. Intact. Turgor - normal. LYMPHATIC: No palpable lymph nodes/no lymphedema. MUSCULOSKELETAL: Normal joints with no swelling. Muscle tone is normal LABS: The patient's WBC count is up to 11,000 it was low on admission. Hgb and hct stable. Kidney functions are much better 1.29 and they were quite elevated with azotemia which has resolved. The patient's chest x-ray showed clearance of infiltrate on one side and consolidation which is very likely atelectasis. The patient has clear lungs, no fever, no cough and no congestion and normal WBC count. ASSESSMENT: 1. 2. 3. 4. 5. 6. PLAN: 1. The patient will be discharged home on Keflex and Steroids. The patient was seen and examined with Nurse Practitioner, Elvia. CONDITION: Stable TIME SPENT: More than 30 minutes. Plan and coordination of the patient's care discussed in the presence of nurse. SUDHIR
== END 2017-01-03 15:20 | DRG 193 ==
LOC: ED 14:38 → SCU 16:38
PROVIDERS: ADMIT Internal Medicine; ATTEND Internal Medicine
DX: J18.9 Pneumonia, unspecified organism (principal); E41 Nutritional marasmus; F05 Delirium due to known physiological condition; R06.00 Dyspnea, unspecified; E86.0 Dehydration; F03.90 Unspecified dementia, unspecified severity, without behavioral disturbance, psychotic disturbance, mood disturbance, and anxiety; I50.9 Heart failure, unspecified; N18.3 Chronic kidney disease, stage 3 (moderate); I51.7 Cardiomegaly; I10 Essential (primary) hypertension; J44.9 Chronic obstructive pulmonary disease, unspecified; I25.10 Atherosclerotic heart disease of native coronary artery without angina pectoris; D64.9 Anemia, unspecified; K21.9 Gastro-esophageal reflux disease without esophagitis; F41.9 Anxiety disorder, unspecified; D72.819 Decreased white blood cell count, unspecified; E87.5 Hyperkalemia; I25.2 Old myocardial infarction; Y95 Nosocomial condition; Z79.01 Long term (current) use of anticoagulants; Z79.899 Other long term (current) drug therapy
CPT/HCPCS: 36415; 80053; 82550; 82803; 83605; 83880; 84145; 84484; 85025; 87040; 87081; 93005; 93010; 94640; 96365; 99284

== ENCOUNTER 2017-01-23 19:32 | Outpatient (CLI) ==
[2017-01-24 01:04] VITALS: BMI 26.7
== END 2017-01-23 19:33 | disposition home or self-care (01) ==
LOC: AMBL 19:32
PROVIDERS: ATTEND Internal Medicine Geriatric Medicine
DX: R41.0 Disorientation, unspecified (principal)

== ENCOUNTER 2017-01-23 19:46 | Inpatient (IN) ==
[2017-01-23] MEDS ORDERED: SODIUM CHLORIDE 1,000 ML IV STA (19:56)
--- NOTE | 2017-01-23 20:12 | ED.PDOC ---
General ED Provider: Dr. LUCIA COLUNGA Chief Complaint: Altered Mental Status Stated Complaint: Patient is an 81 year old female who comes to the ER with mental status changes as noted by the [facility] staff. 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 Also was able to walk with a walker yestrday but now unable to use her left arm. Time Seen by Physician: 20:09 Mode of Arrival: Ambulance Information Source: Family, EMT Exam Limitations: Dementia Primary Care Provider: MARK WATSON Nursing and Triage Documentation Reviewed and Agree: Yes Neurological Complaint Exam - Altered Mental Status Complaint/Exam Current Mental Status: Confusion Last Known Well: yesterday Onset: Gradual Duration: 1 day Symptoms Are: Still present Timing: Constant Initial Severity: Moderate Current Severity: Moderate Character: Reports: Confusion Aggravating: Reports: Unknown Alleviating: Reports: Unknown Associated Signs and Symptoms: Reports: Weakness, Fever (per [facility] ). Denies: Illness, Nuchal rigidity, Nausea, Vomiting Related History: Reports: Similar episode (with prior UTI) Cardiac Risk Factors: Reports: Hypertension, Diabetes CVA Risk Factors: Reports: Diabetes, Hypertension Carotid Bruit Present: No Glascow Coma Scale (see protocol): 15 Nystagmus Present: No Gag Reflex Present: Yes Focal Weakness: Present: LUE (initially would not move it but later did. ) Gait: Unable Thrombolytics Considered: No Differential Diagnoses: Metabolic Disorder, Hypoglycemia, Sepsis Review of Systems - Review Of Systems Constitutional: Reports: Chills, Fever, Weakness Respiratory: Denies: Cough, Wheezing Cardiac: Denies: Chest pain GI: Reports: No symptoms Skin: Reports: No symptoms Neurological: Reports: Cognitive dysfunction All Other Systems: Other (Limited by dementia) Past Medical History - Past Medical History Previously Healthy: No Endocrine: Reports: DM 2, Dyslipidemia Cardiovascular: Reports: CAD, [place], Hypertension, CHF, Other (12/10/15 seen at [facility]- noncardiac chest pain) Respiratory: Reports: COPD Hematological: Reports: Anemia Gastrointestinal: Reports: GERD Genitourinary: Reports: Kidney stones, CKD Neuro/Psych: Reports: CVA (Multiple mini stroke in the past. ), Anxiety, Dementia Musculoskeletal: Reports: Arthritis Cancer: Reports: None Last Menstrual Period: unknown Other Pertinent Past Medical History: NEUROPATHY,BORDERLINE DIABETES,WITH ACCU CHECKS DAILY - Surgical History General Surgical History: Reports: Hysterectomy, Cholecystectomy, Pacemaker ( PACEMAKER 1998 WITH BATTERY CHANGE X2 AT [facility], MOST RECENT IS FEBRUARY 2015), Orthopedic (left knee), Other (BILATEREAL CATARACT ) - Family History Family History: Reports: Unknown - Social History Smoking Status: Never smoker Hx Substance Use: No Alcohol Screening: None Physical Exam - Physical Exam Appearance: Ill-appearing Ill-appearing: Moderate Eyes: GERARDO, EOMI ENT: Dry mucosa Neck: Supple Respiratory: Airway patent, Breath sounds diminished Cardiovascular: RRR, Pulses normal, No rub, No murmur GI/: Soft, Nontender Musculoskeletal: Limited strength, Edema (1-2 + on lower ext ) Skin: Warm, Dry Neurological: Disoriented Psychiatric: Anxious Critical Care Note - Critical Care Note Total Time (mins): 30 Course - Course Hematology/Chemistry: 01/23/17 20:20 01/23/17 20:20 Orders, Labs, Meds: Lab Review 01/23/17 01/23/17 20:20 21:15 WBC 4.17 L RBC 3.60 L Hgb 12.5 Hct 36.9 L MCV 102.5 H MCH 34.7 H MCHC 33.9 RDW Coeff of Juan 15.9 H Plt Count 134 L Immature Gran % (Auto) 0.2 Neut % (Auto) 56.6 Lymph % (Auto) 28.3 Gove % (Auto) 10.8 H Eos % (Auto) 3.4 Baso % (Auto) 0.7 Immature Gran # (Auto) 0.0 Neut # 2.4 Lymph # 1.2 Gove # 0.5 Eos # 0.1 Baso # 0.0 Sodium 144 Potassium 4.0 Chloride 107 Carbon Dioxide 26 Anion Gap 15.0 BUN 23 H Creatinine 1.21 Estimated GFR (MDRD) 52.00 BUN/Creatinine Ratio 19.00 Glucose 88 Lactic Acid 11.5 Calcium 9.6 Total Bilirubin 1.53 H AST 53 H ALT 95 H Alkaline Phosphatase 119 Total Creatine Kinase 40 Troponin I 0.2260 Total Protein 6.0 Albumin 3.3 L Globulin 2.7 Albumin/Globulin Ratio 1.22 Procalcitonin 0.32 Urine Color Yellow Urine Clarity Clear Urine pH 7.0 Ur Specific Dailey 1.015 Urine Protein Negative Urine Glucose (UA) Negative Urine Ketones Negative Urine Blood 2+ Urine Nitrite Negative Urine Bilirubin Negative Urine Urobilinogen 2.0 Ur Leukocyte Esterase 1+ Urine Microscopic RBC 5-10 Urine Microscopic WBC 2-5 Ur Squamous Epith Cells 5-10 Urine Bacteria Trace Orders Category Date Time Status EKG-(ED ONLY) Stat CARDIO 01/23/17 21:06 Completed ED IV/MEDIPORT/POWERPORT .ONCE EMERGENCY 01/23/17 19:56 Active BLOOD CULTURE Stat LAB 01/23/17 20:20 Received CBC W/ AUTO DIFF Stat LAB 01/23/17 20:20 Completed COMPREHENSIVE METABOLIC PANEL Stat LAB 01/23/17 20:20 Completed CREATINE KINASE Stat LAB 01/23/17 20:20 Completed LACTIC ACID Stat LAB 01/23/17 20:20 Completed PROCALCITONIN Stat LAB 01/23/17 20:20 Completed TROPONIN I Stat LAB 01/23/17 20:20 Completed URINALYSIS C & S IF INDICATED Stat LAB 01/23/17 21:15 Completed 0.9 % Sodium Chloride [Saline Flush] MEDS 01/23/17 19:56 Ordered 1 syr IVF PRN PRN Levofloxacin/D5w [Levaquin] 100 ml MEDS 01/23/17 22:22 Discontinued IV .STK-MED Levofloxacin/D5w [Levaquin] 500 mg MEDS 01/23/17 21:46 Discontinued Premix 100 ml D5w 1 bag IV ONCE Sodium Chloride 0.9% [Sodium Chloride] 1,000 ml MEDS 01/23/17 19:56 Discontinued IV BOLUS CHEST, 1V AP ONLY Stat RADS 01/23/17 19:[address] HEAD W/O CONTRAST Stat RADS 01/23/17 19:55 Completed Medications Generic Name Dose Route Start Last Admin Trade Name Freq PRN Reason Stop Dose Admin Acetaminophen/Hydrocodone Bitart tab 01/24/17 09:00 Disney 5-325 PO BID TERESA Albuterol/Ipratropium 1 vial 01/24/17 06:00 Duoneb NEB RTBID TERESA Alprazolam 0.25 mg 01/24/17 21:00 Xanax PO BEDTIME TERESA Alprazolam 0.5 mg 01/23/17 22:56 Xanax PO PRN PRN Anxiety Aspirin 81 mg 01/24/17 08:00 Aspirin Ec PO DAILYWM TERESA Atorvastatin Calcium 20 mg 01/24/17 21:00 Lipitor PO BEDTIME TERESA Calcium/Vitamin D 1 each 01/24/17 09:00 Calcium 500 + Vit D 200 Mg Tablet PO DAILY [facility] Carvedilol 3.125 mg 01/24/17 09:00 Coreg PO DAILY [facility] Clopidogrel Bisulfate 75 mg 01/24/17 09:00 Plavix PO DAILY [facility] Enoxaparin Sodium 40 mg 01/24/17 09:00 Lovenox SUBCUT DAILY [facility] Furosemide 40 mg 01/24/17 09:00 Lasix Tab PO DAILY [facility] Guaifenesin 10 ml 01/23/17 22:56 Robitussin Sugar-Free PO Q4HR PRN Cough Levofloxacin/Dextrose 500 mg/ 100 mls @ 100 mls/hr 01/24/17 21:00 Dextrose IV 01/29/17 20:59 DAILY [facility] Sodium Chloride 1,000 mls @ 75 mls/hr 01/23/17 23:00 Sodium Chloride IV .[id number] [facility] Memantine 10 mg 01/24/17 09:00 Namenda PO BID [facility] Non-Formulary Medication 0.4 mg 01/23/17 22:56 Nitroglycerin [Nitrostat] SL PRN PRN Chest Pain Non-Formulary Medication 2.5 mg 01/24/17 09:00 Lisinopril [Zestril] PO DAILY [facility] Pantoprazole Sodium 40 mg 01/24/17 06:30 Protonix PO BIDAC [facility] Prednisone 10 mg 01/24/17 08:00 Prednisone PO BIDWM [facility] Sodium Chloride 1 syr 01/23/17 19:56 01/23/17 20:36 Saline Flush IVF 1 syr PRN PRN Administration To flush IV Sucralfate 1 gm 01/24/17 06:30 Carafate PO ACHS [facility] Discontinued Medications Generic Name Dose Route Start Last Admin Trade Name Freq PRN Reason Stop Dose Admin Sodium Chloride 1,000 mls @ 1,000 mls/hr 01/23/17 19:56 01/23/17 20:36 Sodium Chloride IV 01/23/17 20:55 1,000 mls/hr BOLUS STA Administration Levofloxacin/Dextrose 500 mg/ 100 mls @ 100 mls/hr 01/23/17 21:46 01/23/17 22 :28 Dextrose IV 01/23/17 22:45 100 mls/hr ONCE STA Administration Vital Signs: Temp Pulse Resp BP Pulse Ox 01/23/17 19:49 98.2 F 72 16 134/81 98 Departure - Departure Time of Disposition: 23:16 Disposition: ADMITTED INPATIENT Discharge Problem: Altered mental status Urinary tract infection Qualifiers: Urinary tract infection type: acute cystitis Hematuria presence: without hematuria Qualifier Code: (N30.00) Acute cystitis without hematuria Condition: Fair Pt referred to PMD for follow-up: No (admitted ) Allergies/Adverse Reactions: Allergies Penicillins Adverse Reaction (Verified 12/30/16 14:47) pneumococcal vaccine Adverse Reaction (Verified 12/30/16 14:47) flu vaccine Adverse Reaction (Unknown, Uncoded 11/15/16 18:47) Home Medications: Ambulatory Orders Alprazolam [Xanax] 0.25 mg PO BEDTIME 02/11/16 Clopidogrel Bisulfate [Clopidogrel] 75 mg PO DAILY 02/11/16 Furosemide [Lasix] 40 mg PO DAILY 02/11/16 Pantoprazole Sodium [Protonix] 40 mg PO BIDAC 02/11/16 Sucralfate [Carafate] 1 gm PO ACHS 02/11/16 Aspirin [Aspirin EC] 81 mg PO DAILYWM 02/12/16 Nitroglycerin [Nitrostat] 0.4 mg SL PRN PRN 03/08/16 Hydrocodone/Acetaminophen [Disney 5-325 Tablet] 1 each PO BID 05/11/16 Lisinopril [Zestril] 2.5 mg PO DAILY #30 tablet 05/12/16 Carvedilol 3.125 mg PO DAILY 09/04/16 Alprazolam [Xanax] 0.5 mg PO PRN PRN 11/15/16 Memantine HCl 10 mg PO BID 11/15/16 Atorvastatin Calcium [Lipitor] 20 mg PO BEDTIME 12/30/16 Calcium Carbonate/Vitamin D3 [Oyster Shell Calcium-Vit D Tab] 1 each PO DAILY Guaifenesin 10 ml PO Q4HR PRN 12/30/16 Cephalexin [Keflex] 500 mg PO Q8HR #21 capsule 01/03/17 Ipratropium/Albuterol Neb [Duoneb] 1 vial NEB RTBID #14 vial.neb 01/03/17 Prednisone 10 mg PO BIDWM #10 tablet 01/03/17
--- NOTE | 2017-01-23 20:22 | CT ---
EXAM: CT head without contrast HISTORY: Altered mental status COMPARISON: CT head from 11/18/2016 TECHNIQUE: Helical axial CT of the head was performed without contrast. Coronal and sagittal reconst ructions were performed. FINDINGS: There is no interval change. There is no acute intracranial abnormality. There is no hemorrhage, mas s, midline shift, abnormal extra-axial fluid collection, hydrocephalus or evolving ischemia. There i s a chronic cortical infarction in the parasagittal right parietal occipital area. There is very adv anced atrophy and advanced chronic small vessel ischemic change in the white matter of both cerebral hemispheres. Brain parenchyma, ventricles and sulci are otherwise normal. There is incidental cavum septum pellucidum a normal variant. There are no acute calvarial lesions. Visualized orbits and globes are unremarkable. The mastoid a ir cells demonstrate no significant soft tissue opacification. The visualized paranasal sinuses show no air-fluid levels. There is calcific atherosclerosis of the carotid siphons. IMPRESSION: 1. No acute intracranial abnormality. 2. Atrophy and chronic small vessel ischemia. 3. Chronic right parietal occipital infarct.
[2017-01-23 20:25] LABS: BASOPHILS % (AUTO) 0.7 % (0.0-3.0); EOSINOPHILS # (AUTO) 0.1 K/ul (0.0-0.7); EOSINOPHILS % (AUTO) 3.4 % (0.0-7.0); HEMATOCRIT 36.9 % (37.0-47.0); HEMOGLOBIN 12.5 g/dl (12.0-16.0); IMMATURE GRANULOCYTE % (AUTO) 0.2 % (0.0-5.0); LYMPHOCYTES # (AUTO) 1.2 K/uL (0.60-3.4); LYMPHOCYTES % (AUTO) 28.3 (10.0-50.0); MEAN CORPUSCULAR HEMOGLOBIN 34.7 pg (27.0-31.0); MEAN CORPUSCULAR HGB CONC 33.9 (31.8-35.4); MEAN CORPUSCULAR VOLUME 102.5 fl (81.0-99.0); MONOCYTES # (AUTO) 0.5 K/uL (0.4-2.0); MONOCYTES % (AUTO) 10.8 (0-10); NEUTROPHILS # (AUTO) 2.4 K/ul (2.0-6.9); NEUTROPHILS % (AUTO) 56.6; PLATELET COUNT 134 10^3/uL (140-440); WHITE BLOOD COUNT 4.17 K/ul (4.6-10.2)
[2017-01-23 20:52] LABS: ALBUMIN 3.3 g/dL (3.4-5.0); ALBUMIN/GLOBULIN RATIO 1.22; BILIRUBIN,TOTAL 1.53 mg/dL (0.00-1.20); CALCIUM 9.6 mg/dL (8.2-10.2); CREATININE 1.21 mg/dL (0.60-1.30); TROPONIN I 0.226 ng/ml (0.0000-0.4000)
[2017-01-23 21:27] LABS: BILIRUBIN,URINE Negative (NEGATIVE); KETONES,URINE Negative (NEGATIVE); LEUKOCYTE ESTERASE ,URINE 1+ (NEGATIVE); NITRITE,URINE Negative (NEGATIVE); PROTEIN,URINE Negative (NEGATIVE); URINE, BLOOD 2+ (NEGATIVE)
[2017-01-23 21:34] LABS: ADD URINE MICROSCOPIC YES; BACTERIA,URINE TRACE (NOT PRESENT)
[2017-01-23] MEDS ORDERED: LEVAQUIN 500 MG in PREMIX 100 ML D5W 1 BAG IV STA (21:46)
[2017-01-23] MEDS ORDERED: LEVAQUIN 100 ML IV ONE (22:22)
[2017-01-23] MEDS ORDERED: NON-FORMULARY MEDICATION (Nitroglycerin [Nitrostat] 0.4 MG) SL PRN ×22 (22:56)
[2017-01-23] MEDS ORDERED: ROBITUSSIN SUGAR-FREE PO PRN (22:56)
[2017-01-23] MEDS ORDERED: XANAX PO PRN (22:56)
[2017-01-23] MEDS ORDERED: SODIUM CHLORIDE 1,000 ML IV SCH (23:00)
[2017-01-24 01:04] VITALS: BMI 26.7
[2017-01-24 04:55] LABS: BASOPHILS % (AUTO) 0.8 % (0.0-3.0); EOSINOPHILS # (AUTO) 0.1 K/ul (0.0-0.7); EOSINOPHILS % (AUTO) 3.3 % (0.0-7.0); HEMATOCRIT 35.9 % (37.0-47.0); HEMOGLOBIN 11.8 g/dl (12.0-16.0); IMMATURE GRANULOCYTE % (AUTO) 0.3 % (0.0-5.0); LYMPHOCYTES # (AUTO) 1.1 K/uL (0.60-3.4); LYMPHOCYTES % (AUTO) 27.9 (10.0-50.0); MEAN CORPUSCULAR HGB CONC 32.9 (31.8-35.4); MEAN CORPUSCULAR VOLUME 103.5 fl (81.0-99.0); MONOCYTES # (AUTO) 0.4 K/uL (0.4-2.0); MONOCYTES % (AUTO) 9.9 (0-10); NEUTROPHILS # (AUTO) 2.3 K/ul (2.0-6.9); NEUTROPHILS % (AUTO) 57.8; PLATELET COUNT 114 10^3/uL (140-440); RED BLOOD COUNT 3.47 10^6/ul (4.20-5.40); WHITE BLOOD COUNT 3.94 K/ul (4.6-10.2)
[2017-01-24 05:14] LABS: ALBUMIN/GLOBULIN RATIO 1.3; ANION GAP 14.2; BILIRUBIN,TOTAL 1.8 mg/dL (0.00-1.20); BUN/CREATININE RATIO 17.07; CALCIUM 9.3 mg/dL (8.2-10.2); CREATININE 1.23 mg/dL (0.60-1.30); POTASSIUM 4.2 mmol/L (3.5-5.10); TOTAL PROTEIN 5.3 g/dL (5.8-8.1)
[2017-01-24] MEDS: DUONEB NEB SCH ×2 (05:22→18:00)
[2017-01-24] MEDS: CARAFATE PO SCH ×4 (05:57→23:20)
[2017-01-24] MEDS: PROTONIX PO SCH ×2 (05:58→17:01)
[2017-01-24] MEDS ORDERED: NITROSTAT SL PRN (07:14)
--- NOTE | 2017-01-24 07:28 | DI ---
EXAM: Chest one view, frontal view only. HISTORY: Mental status changes. COMPARISON: 01/03/2017. FINDINGS: The heart size is enlarged. Right-sided pacemaker again noted. There is no pulmonary va scular congestion. The lungs are clear. Previously noted right basilar consolidation has resolved. No pleural effusion or pneumothorax is seen. No acute osseous abnormality is identified. Degener ative changes of the shoulders are present. IMPRESSION: No acute cardiopulmonary process.
[2017-01-24] MEDS: DEXTROSE 5%-1/2NS IV SOLUTION 1,000 ML IV SCH ×2 (08:51→23:28)
[2017-01-24] MEDS ORDERED: NON-FORMULARY MEDICATION (Lisinopril [Zestril] 2.5 MG) PO SCH ×22 (09:00)
[2017-01-24] MEDS: NORCO 5-325 PO SCH ×2 (09:00→20:55)
--- NOTE | 2017-01-24 11:52 | PCM.PROG ---
Attending Provider: ATTENDING PROVIDER: Dr. MARK WATSON DATE OF SERVICE: 01/24/17 SUBJECTIVE: This 81 year old BLACK/ F was hospitalized 01/23/17. The patient is lying in bed alert, oriented to person. The daughter is present in the room this morning. The patient's confusion is somewhat better. Urine culture is pending. REVIEW OF SYSTEMS: CONSTITUTIONAL: Generalized weakness. Confusion. No night sweats. No fever or chills. HEENT: Eyes: No visual changes. No eye pain. No eye discharge. ENT: No runny nose. No epistaxis. No sinus pain. No odynophagia. No congestion. RESPIRATORY: No cough, no congestion. No hemoptysis. CARDIOVASCULAR: No angina symptoms. No CHF symptoms. No atypical chest pain for CAD. No palpitations. No shortness of breath. GASTROINTESTINAL: No abdominal pain. No nausea or vomiting. No diarrhea or constipation. No hematemesis. No hematochezia. GENITOURINARY: Incontinent. No hematuria. MUSCULOSKELETAL: No musculoskeletal pain; no joint swelling. NEUROLOGICAL: Awake, alert, oriented to time, place and person. No headache. No neck pain. No syncope. No seizures. No dizziness. PSYCHIATRIC: Not anxious. No depression. No suicidal thoughts. No homicidal thoughts. SKIN: No rash. No lesions. No wounds. ENDOCRINE: No unexplained weight loss. No weight gain. HEMATOLOGIC/LYMPHATIC: No anemia. No purpura. No petechiae. No prolonged or excessive bleeding. No palpable lymph nodes. PHYSICAL EXAMINATION: GENERAL: The patient is awake, alert to person only lying in bed in no distress. VITAL SIGNS: Temperature 94.8 F, Pulse 72, Respiratory Rate 16, BP 133/78, Pulse Ox 98% HEENT: Head normocephalic, atraumatic. Eyes: Extraocular muscles are intact. Pupils are equal, round and reactive to light and accommodation. Ears: No lesions. Nose appeared normal. Throat: No exudate or erythema. NECK: Supple. No JVD, no carotid bruit. No lymphadenopathy or thyromegaly. LUNGS: Diminished breath sounds, equal and clear bilaterally to auscultation. Percussion note normal. Chest symmetrical. HEART: S1, S2, no S3. No murmurs. No cyanosis or clubbing. No ascites. Pulses: Dorsalis pedis and posterior tibial pulses +1 to +2 both sides. ABDOMEN: Soft. Non-tender. Bowel sounds active. No CVA tenderness. No mass felt. EXTREMITIES: No edema. Full range of motion of all extremities, equal. NEUROLOGIC: No focal deficit. Cranial nerves II through XII are grossly intact. No headache, no double vision or headache. SKIN: Not dry. Intact. Turgor-normal. LYMPHATIC: No palpable lymph nodes/no lymphedema. MUSCULOSKELETAL: Normal joints with no swelling. Muscle tone is normal. LAB REVIEW: 01/24/17 04:51 01/24/17 04:51 01/24/17 04:51: WBC 3.94 L, RBC 3.47 L, Hgb 11.8 L, Hct 35.9 L, MCV 103.5 H, MCH 34.0 H, MCHC 32.9, RDW Coeff of Juan 15.9 H, Plt Count 114 L, Immature Gran % (Auto) 0.3, Neut % (Auto) 57.8, Lymph % (Auto) 27.9, [place] % (Auto) 9.9, Eos % (Auto) 3.3, Baso % (Auto) 0.8, Immature Gran # (Auto) 0.0, Neut # 2.3, Lymph # 1.1, [place] # 0.4, Eos # 0.1, Baso # 0.0, Sodium 146 H, Potassium 4.2, Chloride 111 H, Carbon Dioxide 25, Anion Gap 14.2, BUN 21 H, Creatinine 1.23, Estimated GFR (MDRD) 51.00, BUN/Creatinine Ratio 17.07, Glucose 72 L, Calcium 9.3, Total Bilirubin 1.80 H, AST 44 H, ALT 81 H, Alkaline Phosphatase 105, Total Protein 5.3 L, Albumin 3.0 L, Globulin 2.3, Albumin/Globulin Ratio 1.30 ASSESSMENT: 1. Urinary tract infection 2. Mental status change, improving 3. History of CHF 4. Pacemaker 5. CT showed chronic right parietal infarct 6. Dementia PLAN: 1. Urine culture pending 2. Continue fluids and IV Levaquin Plan and coordination of the patient's care discussed in the presence of Finance Analyst and nurse. CONDITION: Stable SCRIBED BY: Selvin SENIOR scribed while in presence of service performed by Dr. MARK WATSON/ROBERTO BHANDARI APRN on 01/24/17 (0806)
[2017-01-24] MEDS: PLAVIX PO SCH (12:40)
[2017-01-24] MEDS: CALCIUM 500 + VIT D 200 MG TABLET PO SCH (12:41)
[2017-01-24] MEDS: LASIX TAB PO SCH (12:41)
[2017-01-24] MEDS: COREG PO SCH (12:41)
[2017-01-24] MEDS: ZESTRIL PO SCH (12:42)
[2017-01-24] MEDS: ASPIRIN EC PO SCH (12:43)
[2017-01-24] MEDS: PREDNISONE PO SCH ×2 (12:43→17:01)
[2017-01-24] MEDS: LOVENOX SUBCUT SCH (12:43)
[2017-01-24] MEDS: NAMENDA PO SCH ×2 (12:43→20:54)
--- NOTE | 2017-01-24 12:50 | HP ---
DATE OF SERVICE: 01/23/17 REASON FOR HOSPITALIZATION/HISTORY OF PRESENT ILLNESS: This 81 year old Black/ female was brought to ER for acute confusion. Urinalysis showed possible UTI. The patient was then admitted, placed on IV Levaquin. The patient was placed in the Special Care Unit. Admission labs were: WBC 4.17, RBC 3.60, Hgb 12.5, HCT 36.9, Platelet count 134. Sodium 144, potassium 4.0, chloride 107, carbon dioxide 26, anion gap 15.0 BUN 23, creatinine 1.21, glucose 88. AST 53, ALT 95. Alkaline phosphatase 119. Albumin 3.3. Procalcitonin 0.32. REVIEW OF SYSTEMS: CONSTITUTIONAL: Confusion; generalized weakness. No night sweats. No fever or chills. HEENT: Eyes: No visual changes. No eye pain. No eye discharge. ENT: No runny nose. No epistaxis. No sinus pain. No odynophagia. No congestion. RESPIRATORY: No cough, no congestion. No hemoptysis. CARDIOVASCULAR: No angina symptoms. No CHF symptoms. No atypical chest pain for CAD. No palpitations. No shortness of breath. GASTROINTESTINAL: No abdominal pain. No nausea or vomiting. No diarrhea or constipation. No hematemesis. No hematochezia. GENITOURINARY: Incontinence. No significant abnormal bleeding. MUSCULOSKELETAL: No musculoskeletal pain; no joint swelling. NEUROLOGICAL: Awake, alert, oriented to person. No headache. No neck pain. No syncope. No seizures. No dizziness. PSYCHIATRIC: Not anxious. No depression. No suicidal thoughts. No homicidal thoughts. SKIN: No rash. No lesions. No wounds. ENDOCRINE: No unexplained weight loss. No weight gain. HEMATOLOGIC/LYMPHATIC: No anemia. No purpura. No petechiae. No prolonged or excessive bleeding. No palpable lymph nodes. PERSONAL/FAMILY/SOCIAL HISTORY: The patient is a resident at the [facility]. Nonsmoker. No alcohol use. . The patient has daughter, Tanesha, who is very supportive. PAST MEDICAL/SURGICAL PROBLEMS: 1. Dementia 2. Diabetes 3. Hypertension 4. Dyslipidemia 5. Coronary artery disease status post stent 6. DJD spine 7. CKD Stage 3 8. Recurrent UTI 9. L4 compression fracture MEDICATIONS: (HOME) 1. Cephalexin (Keflex) 500 mg - on hold 2. Alprazolam (Xanax) 0.5 mg p.o. p.r.n. 3. Guaifenesin 10 mL p.o. q.4h p.r.n. 4. Nitrostat 0.4 mg SL p.r.n. 5. Ipratropium/Albuterol one vial neb Rt b.i.d. 6. Pantoprazole (Protonix) 40 mg p.o. b.i.d. a.c. 7. Sucralfate (Carafate) 1 gm p.o. a.c. and h.s. 8. Prednisone 10 mg p.o. b.i.d. with meal 9. Aspirin 81 mg p.o. daily with meal 10. Calcium Carbonate/Vitamin D3 one each p.o. daily 11. Carvedilol (Coreg) 3.125 mg p.o. daily with meal 12. Clopidogrel (Plavix) 75 mg p.o. daily 13. Furosemide 40 mg p.o. q.d a.c. 14. Memantine 10m g p.o. b.i.d. 15. Zestril 2.5 mg p.o. daily 16. Hydrocodone/Acetaminophen ([place] 5-325) one tab p.o. b.i.d. 17. Xanax 0.25 mg p.o. bedtime 18. Lipitor 20 mg p.o. bedtime ALLERGIES: PENICILLIN, PNEUMOCOCCAL VACCINE (FLU VACCINE) PHYSICAL EXAMINATION: VITAL SIGNS: Temperature 98.2, pulse 72, BP 134/81, respiratory rate 16, o2 sat 98 on room air. Weight 140 lbs. Height 5'4". GENERAL: Generalized weakness. HEENT: Head normocephalic, atraumatic. Eyes: Extraocular muscles are intact. Pupils are equal, round and reactive to light and accommodation. Ears: No lesions. Nose appeared normal. Throat: No exudate or erythema. NECK: Supple. No JVD, no carotid bruit. No lymphadenopathy or thyromegaly. LUNGS: Diminished breath sounds, clear and equal to auscultation. Percussion note normal. Chest symmetrical. HEART: S1, S2, no S3. No murmur. Has pacemaker. No cyanosis or clubbing. No ascites. Pulses: Dorsalis pedis and posterior tibial pulses +1 to +2 both sides. ABDOMEN: Soft. Nontender. Bowel sounds active. No CVA tenderness. No mass felt. EXTREMITIES: No edema. Full range of motion of all extremities, equal. NEUROLOGIC: Positive for confusion. No focal deficit. Cranial nerves II through XII are grossly intact. No headache, no double vision or headache. SKIN: Not dry. Intact. Turgor - normal. LYMPHATIC: No palpable lymph nodes/no lymphedema. MUSCULOSKELETAL: Normal joints with no swelling. Muscle tone is normal. LABS/RADIOLOGIC DATA: : WBC 4.17, RBC 3.60, hgb 12.5, hct 36.9, MCV 102.5, MCH 34.7, MCHC 33.9, RDW 15.9 , platelet count 134, mono 10.8, Eos 3.4, Baso 0.7, Immature Gran 0.9, Neut 2.4 , Lymph 1.2, [place] 0.5, EOS 0.1, Baso 0.0. Head CT - no acute intracranial abnormality, Atrophy and chronic small vessel ischemia, chronic right parietal occipital infarct. Chest x-ray - no acute cardiopulmonary process. ASSESSMENT: 1. ACUTE UTI 2. ACUTE CONFUSION 3. POSSIBLE LEFT ARM WEAKNESS 4. HISTORY OF CHF PLAN: 1. Admit to Special Care 2. Routine telemetry orders 3. Placed on IV Levaquin 500 mg daily 4. P.O. Prednisone 10 mg b.i.d. 5. Will also place her on Lovenox 40 mg daily to prevent clots 6. Daily CBC, CMP 7. Diet as tolerated 8. Urine culture pending 9. CT of brain showed chronic right parietal infarct TIME SPENT: More than 70 minutes. SCRIBED BY: Bhavani Figueroa, Motion Graphics Designer scribed while in the presence of service performed by Dr. Jeremiah Bahena/Elvia Ocampo APRN, on 01/24/17 (0806) SUDHIR
--- NOTE | 2017-01-24 13:55 | PN ---
DATE OF SERVICE: 01/23/17 ADMITTING NOTE SUBJECTIVE: The patient is an 81 year old black female resident of the senior living was hospitalized because she was found to have more confusion, fever of 100.3. The senior living had advised the nursing staff of the [facility] to send the patient to the Emergency Room at [facility]. The ER attending called me that patient had some evidence of possibility of urinary tract infection though the workup for the fever was all negative. REVIEW OF SYSTEMS: CONSTITUTIONAL: No night sweats. No fatigue, malaise, lethargy. No fever or chills. HEENT: Eyes: No visual changes. No eye pain. No eye discharge. ENT: No runny nose. No epistaxis. No sinus pain. No sore throat. No odynophagia. No congestion. RESPIRATORY: No cough, no congestion. No hemoptysis. CARDIOVASCULAR: No angina symptoms. No CHF symptoms. No atypical chest pain for CAD. No palpitations. No shortness of breath. GASTROINTESTINAL: No abdominal pain. No nausea or vomiting. No diarrhea or constipation. No hematemesis. No hematochezia. GENITOURINARY: No urgency. No frequency. No dysuria. No hematuria. No obstructive symptoms. No discharge. No pain. No significant abnormal bleeding. MUSCULOSKELETAL: No musculoskeletal pain; no joint swelling. NEUROLOGICAL: No headache. No neck pain. No syncope. No seizures. No dizziness. PSYCHIATRIC: Not anxious. No depression. No suicidal thoughts. No homicidal thoughts. SKIN: No rash. No lesions. No wounds. ENDOCRINE: No unexplained weight loss. No weight gain. HEMATOLOGIC/LYMPHATIC: No anemia. No purpura. No petechiae. No prolonged or excessive bleeding. No palpable lymph nodes. PHYSICAL EXAMINATION: GENERAL: The patient is confused but alert. Not in distress VITAL SIGNS: Temperature 98.6, pulse 80, respiratory rate 15, blood pressure 138/74. HEENT: Head normocephalic, atraumatic. Eyes: Extraocular muscles are intact. Pupils are equal, round and reactive to light and accommodation. Ears: No lesions. Nose appeared normal. Throat: No exudate or erythema. Mucosa Membrane dry. NECK: Supple. No JVD, no carotid bruit. No lymphadenopathy or thyromegaly. LUNGS: Decreased breath sounds but clear to auscultation. Percussion note normal. Chest symmetrical. HEART: S1, S2, no S3. No murmurs. No cyanosis or clubbing. No ascites. Pulses: Dorsalis pedis and posterior tibial pulses +1 to +2 both sides. ABDOMEN: Soft. Nontender. Bowel sounds active. No CVA tenderness. No mass felt. EXTREMITIES: No edema. Full range of motion of all extremities, equal. NEUROLOGIC: No focal deficit. Cranial nerves II through XII are grossly intact. No headache, no double vision or headache. SKIN: Dry. Intact. Turgor - normal. LYMPHATIC: No palpable lymph nodes/no lymphedema. MUSCULOSKELETAL: Normal joints with no swelling. Muscle tone is normal. ASSESSMENT: 1. Confusion with history of fever 2. Abnormal U/A likely UTI 3. History of CHF PLAN: 1. Treat patient IV Levaquin 2. IV fluids slow 3. Will watch for fluid overload CONDITION: Stable. TIME SPENT: More than 30 minutes. Plan and coordination of the patient's care discussed in the presence of nurse. SUDHIR
[2017-01-24] MEDS: XANAX PO SCH (20:54)
[2017-01-24] MEDS: LIPITOR PO SCH (20:54)
[2017-01-24] MEDS: LEVAQUIN 250 MG in PREMIX 50 ML D5W 1 BAG IV SCH (20:54)
[2017-01-24] MEDS ORDERED: LEVAQUIN 500 MG in PREMIX 100 ML D5W 1 BAG IV SCH (21:00)
[2017-01-25 04:59] LABS: BASOPHILS % (AUTO) 0.2 % (0.0-3.0); EOSINOPHILS % (AUTO) 0.7 % (0.0-7.0); HEMATOCRIT 31.7 % (37.0-47.0); HEMOGLOBIN 10.6 g/dl (12.0-16.0); IMMATURE GRANULOCYTE % (AUTO) 0.2 % (0.0-5.0); LYMPHOCYTES # (AUTO) 0.6 K/uL (0.60-3.4); LYMPHOCYTES % (AUTO) 14.8 (10.0-50.0); MEAN CORPUSCULAR HEMOGLOBIN 34.2 pg (27.0-31.0); MEAN CORPUSCULAR HGB CONC 33.4 (31.8-35.4); MEAN CORPUSCULAR VOLUME 102.3 fl (81.0-99.0); MONOCYTES # (AUTO) 0.4 K/uL (0.4-2.0); MONOCYTES % (AUTO) 8.5 (0-10); NEUTROPHILS # (AUTO) 3.2 K/ul (2.0-6.9); NEUTROPHILS % (AUTO) 75.6; PLATELET COUNT 111 10^3/uL (140-440); WHITE BLOOD COUNT 4.26 K/ul (4.6-10.2)
[2017-01-25] MEDS: DUONEB NEB SCH ×2 (05:07→18:18)
[2017-01-25 05:25] LABS: ALBUMIN 2.6 g/dL (3.4-5.0); ALBUMIN/GLOBULIN RATIO 1.3; ANION GAP 10.8; BILIRUBIN,TOTAL 1.34 mg/dL (0.00-1.20); BUN/CREATININE RATIO 14.67; CALCIUM 8.7 mg/dL (8.2-10.2); CREATININE 1.09 mg/dL (0.60-1.30); POTASSIUM 3.8 mmol/L (3.5-5.10); TOTAL PROTEIN 4.6 g/dL (5.8-8.1)
[2017-01-25] MEDS: CARAFATE PO SCH ×4 (06:15→20:43)
[2017-01-25] MEDS: LASIX TAB PO SCH (06:15)
[2017-01-25] MEDS: PROTONIX PO SCH ×2 (06:15→17:30)
[2017-01-25] MEDS ORDERED: XANAX PO PRN (08:19)
[2017-01-25] MEDS: PREDNISONE PO SCH ×2 (09:08→17:30)
[2017-01-25] MEDS: ASPIRIN EC PO SCH (09:08)
[2017-01-25] MEDS: COREG PO SCH (09:08)
[2017-01-25] MEDS: PLAVIX PO SCH (09:08)
[2017-01-25] MEDS: CALCIUM 500 + VIT D 200 MG TABLET PO SCH (09:08)
[2017-01-25] MEDS: ZESTRIL PO SCH (09:08)
[2017-01-25] MEDS: NAMENDA PO SCH ×2 (09:09→20:42)
[2017-01-25] MEDS: NORCO 5-325 PO SCH ×2 (09:10→20:42)
[2017-01-25] MEDS: LOVENOX SUBCUT SCH (09:10)
[2017-01-25] MEDS: DEXTROSE 5%-1/2NS IV SOLUTION 1,000 ML IV SCH (13:28)
[2017-01-25] MEDS: XANAX PO SCH (20:42)
[2017-01-25] MEDS: LEVAQUIN 250 MG in PREMIX 50 ML D5W 1 BAG IV SCH (20:42)
[2017-01-25] MEDS: LIPITOR PO SCH (20:43)
[2017-01-26] MEDS: DEXTROSE 5%-1/2NS IV SOLUTION 1,000 ML IV SCH (03:31)
[2017-01-26] MEDS: DUONEB NEB SCH (05:14)
[2017-01-26 05:29] LABS: BASOPHILS % (AUTO) 0.2 % (0.0-3.0); EOSINOPHILS # (AUTO) 0.1 K/ul (0.0-0.7); EOSINOPHILS % (AUTO) 1.5 % (0.0-7.0); HEMATOCRIT 33.6 % (37.0-47.0); HEMOGLOBIN 11.1 g/dl (12.0-16.0); IMMATURE GRANULOCYTE % (AUTO) 0.4 % (0.0-5.0); LYMPHOCYTES # (AUTO) 0.7 K/uL (0.60-3.4); LYMPHOCYTES % (AUTO) 14.5 (10.0-50.0); MEAN CORPUSCULAR HEMOGLOBIN 34.2 pg (27.0-31.0); MEAN CORPUSCULAR VOLUME 103.4 fl (81.0-99.0); MONOCYTES # (AUTO) 0.4 K/uL (0.4-2.0); MONOCYTES % (AUTO) 7.9 (0-10); NEUTROPHILS # (AUTO) 3.4 K/ul (2.0-6.9); NEUTROPHILS % (AUTO) 75.5; PLATELET COUNT 104 10^3/uL (140-440); RED BLOOD COUNT 3.25 10^6/ul (4.20-5.40); WHITE BLOOD COUNT 4.54 K/ul (4.6-10.2)
[2017-01-26] MEDS: LASIX TAB PO SCH (05:49)
[2017-01-26] MEDS: CARAFATE PO SCH ×2 (05:49→11:45)
[2017-01-26] MEDS: PROTONIX PO SCH (05:49)
[2017-01-26 05:50] LABS: ALBUMIN 2.8 g/dL (3.4-5.0); ALBUMIN/GLOBULIN RATIO 1.33; BILIRUBIN,TOTAL 1.08 mg/dL (0.00-1.20); BUN/CREATININE RATIO 12.72; CALCIUM 8.8 mg/dL (8.2-10.2); CREATININE 1.1 mg/dL (0.60-1.30); TOTAL PROTEIN 4.9 g/dL (5.8-8.1)
[2017-01-26] MEDS: NAMENDA PO SCH (09:26)
[2017-01-26] MEDS: CALCIUM 500 + VIT D 200 MG TABLET PO SCH (09:26)
[2017-01-26] MEDS: ASPIRIN EC PO SCH (09:26)
[2017-01-26] MEDS: NORCO 5-325 PO SCH (09:26)
[2017-01-26] MEDS: PLAVIX PO SCH (09:26)
[2017-01-26] MEDS: PREDNISONE PO SCH (09:27)
[2017-01-26] MEDS: LOVENOX SUBCUT SCH (09:27)
[2017-01-26] MEDS: COREG PO SCH (09:27)
[2017-01-26] MEDS: ZESTRIL PO SCH (09:27)
[2017-01-26 10:34] VITALS: BP 104/59; TEMP 96.6
--- NOTE | 2017-01-26 10:51 | PCM.PROG ---
Attending Provider: ATTENDING PROVIDER: Dr. MARK WATSON DATE OF SERVICE: 01/26/17 SUBJECTIVE: This 81 year old BLACK/ F was hospitalized 01/23/17. The patient is seen with COSMO Gan. The patient is up in chair. She is more alert and not as confused. She has been eating better. REVIEW OF SYSTEMS: CONSTITUTIONAL: Generalized weakness. No night sweats. No fever or chills. HEENT: Eyes: No visual changes. No eye pain. No eye discharge. ENT: No runny nose. No epistaxis. No sinus pain. No odynophagia. No congestion. RESPIRATORY: No cough, no congestion. No hemoptysis. CARDIOVASCULAR: No angina symptoms. No CHF symptoms. No atypical chest pain for CAD. No palpitations. No shortness of breath. GASTROINTESTINAL: No abdominal pain. No nausea or vomiting. No diarrhea or constipation. No hematemesis. No hematochezia. GENITOURINARY: No urgency. No frequency. No dysuria. No hematuria. No obstructive symptoms. No discharge. No pain. No significant abnormal bleeding. MUSCULOSKELETAL: No musculoskeletal pain; no joint swelling. NEUROLOGICAL: Awake, alert, oriented to time, place and person. No headache. No neck pain. No syncope. No seizures. No dizziness. PSYCHIATRIC: Not anxious. No depression. No suicidal thoughts. No homicidal thoughts. SKIN: No rash. No lesions. No wounds. ENDOCRINE: No unexplained weight loss. No weight gain. HEMATOLOGIC/LYMPHATIC: No anemia. No purpura. No petechiae. No prolonged or excessive bleeding. No palpable lymph nodes. PHYSICAL EXAMINATION: GENERAL: The patient is awake, alert and oriented, sitting in chair in no distress. VITAL SIGNS: Temperature 97.4 F, Pulse 73, Respiratory Rate 16, BP 107/63, Pulse Ox 97% HEENT: Head normocephalic, atraumatic. Eyes: Extraocular muscles are intact. Pupils are equal, round and reactive to light and accommodation. Ears: No lesions. Nose appeared normal. Throat: No exudate or erythema. NECK: Supple. No JVD, no carotid bruit. No lymphadenopathy or thyromegaly. LUNGS: Clear and equal bilaterally, diminished breath sounds. Percussion note normal. Chest symmetrical. HEART: S1, S2, no S3. No murmurs. No cyanosis or clubbing. No ascites. Pulses: Dorsalis pedis and posterior tibial pulses +1 to +2 both sides. ABDOMEN: Soft. Non-tender. Bowel sounds active. No CVA tenderness. No mass felt. EXTREMITIES: No edema. Full range of motion of all extremities, equal. NEUROLOGIC: No focal deficit. Cranial nerves II through XII are grossly intact. No headache, no double vision or headache. SKIN: Not dry. Intact. Turgor-normal. LYMPHATIC: No palpable lymph nodes/no lymphedema. MUSCULOSKELETAL: Normal joints with no swelling. Muscle tone is normal. LAB REVIEW: 01/26/17 05:15 01/26/17 05:15 01/26/17 05:15: WBC 4.54 L, RBC 3.25 L, Hgb 11.1 L, Hct 33.6 L, MCV 103.4 H, MCH 34.2 H, MCHC 33.0, RDW Coeff of Juan 15.3 H, Plt Count 104 L, Immature Gran % (Auto) 0.4, Neut % (Auto) 75.5, Lymph % (Auto) 14.5, [place] % (Auto) 7.9, Eos % (Auto) 1.5, Baso % (Auto) 0.2, Immature Gran # (Auto) 0.0, Neut # 3.4, Lymph # 0.7, [place] # 0.4, Eos # 0.1, Baso # 0.0, Sodium 141, Potassium 4.0, Chloride 108 H, Carbon Dioxide 26, Anion Gap 11.0, BUN 14, Creatinine 1.10, Estimated GFR ( MDRD) 57.00, BUN/Creatinine Ratio 12.72, Glucose 105, Calcium 8.8, Total Bilirubin 1.08, AST 33, ALT 65, Alkaline Phosphatase 106, Total Protein 4.9 L, Albumin 2.8 L, Globulin 2.1, Albumin/Globulin Ratio 1.33 ASSESSMENT: 1. Urinary tract infection 2. Mental status change, improving 3. History of CHF 4. Pacemaker 5. CT showed chronic right parietal infarct 6. Dementia PLAN: 1. Anticipate discharge to [facility] today 2. Levaquin 250 mg p.o. daily times 7 days 3. Prednisone 10 mg daily for 5 days Plan and coordination of the patient's care discussed in the presence of Hot Oiler and nurse. CONDITION: Stable SCRIBED BY: GABE SALINAS, Driller'S Assistant scribed while in presence of service performed by Dr. MARK WATSON/ROBERTO BHANDARI APRN on 01/26/17 ([id number])
--- NOTE | 2017-01-26 12:21 | CM.DICTOOL ---
ADMISSION: 01/23/17 22:39 DISCHARGE: January 26, 2017 DATE OF SERVICE: 01/26/17 FINAL DIAGNOSIS Altered mental status Urinary tract infection Chronic right parietal infarct Dementia Diabetes, type 2 Hypertension Dyslipidemia Coronary Artery Disease Stent Application DJD spine CKD, stage 3 L4 Compression Fracture Pacemaker LAST VITALS Temp Pulse Resp BP Pulse Ox 96.6 F L 70 20 104/59 L 96 01/26/17 10:00 01/26/17 10:00 01/26/17 10:00 01/26/17 10:00 01/26/17 10:00 ACTIVE HOME MEDICATIONS Acetaminophen/Hydrocodone Bitart (Beulah 5-325) 1 tab PO BID [facility] Last Admin: 01/26/17 09:26 Dose: 1 tab Albuterol/Ipratropium (Duoneb) 1 vial NEB RTBID [facility] Last Admin: 01/26/17 05:14 Dose: 1 vial Alprazolam (Xanax) 0.25 mg PO BEDTIME [facility] Last Admin: 01/25/17 20:42 Dose: 0.25 mg Alprazolam (Xanax) 0.25 mg PO DAILY PRN PRN Reason: ANXIETY Aspirin (Aspirin Ec) 81 mg PO DAILYWM [facility] Last Admin: 01/26/17 09:26 Dose: 81 mg Atorvastatin Calcium (Lipitor) 20 mg PO BEDTIME [facility] Last Admin: 01/25/17 20:43 Dose: 20 mg Calcium/Vitamin D (Calcium 500 + Vit D 200 Mg Tablet) 1 each PO DAILY [facility] Last Admin: 01/26/17 09:26 Dose: 1 each Carvedilol (Coreg) 3.125 mg PO DAILYWM [facility] Last Admin: 01/26/17 09:27 Dose: 3.125 mg Clopidogrel Bisulfate (Plavix) 75 mg PO DAILY [facility] Last Admin: 01/26/17 09:26 Dose: 75 mg Furosemide (Lasix Tab) 40 mg PO QDAC [facility] Last Admin: 01/26/17 05:49 Dose: 40 mg Guaifenesin (Robitussin Sugar-Free) 10 ml PO Q4HR PRN PRN Reason: Cough Lisinopril (Zestril) 2.5 mg PO DAILY [facility] Last Admin: 01/26/17 09:27 Dose: 2.5 mg Memantine (Namenda) 10 mg PO BID [facility] Last Admin: 01/26/17 09:26 Dose: 10 mg Nitroglycerin (Nitrostat) 0.4 mg SL Q5MIN X 3 DOSES PRN PRN Reason: CHEST PAIN Pantoprazole Sodium (Protonix) 40 mg PO BIDAC [facility] Last Admin: 01/26/17 05:49 Dose: 40 mg Prednisone 10 mg BID Last Admin: 01/26/17 0925 (dose decreased to daily) Sucralfate (Carafate) 1 gm PO ACHS [facility] Last Admin: 01/26/17 11:45 Dose: 1 gm ALLERGIES Penicillins Adverse Reaction (Verified 12/30/16 14:47) pneumococcal vaccine Adverse Reaction (Verified 12/30/16 14:47) flu vaccine Adverse Reaction (Unknown, Uncoded 11/15/16 18:47) NEW PRESCRIPTIONS: Levaquin 250 mg daily for 7 days Prednisone 10 mg daily for 5 days (this is a decrease in the previous dose) SMOKING: Not Applicable DISEASE SPECIFIC EDUCATION: Patient has dementia; not applicable LAB REVIEW: 01/26/17 05:15 01/26/17 05:15 01/26/17 05:15: WBC 4.54 L, RBC 3.25 L, Hgb 11.1 L, Hct 33.6 L, MCV 103.4 H, MCH 34.2 H, MCHC 33.0, RDW Coeff of Juan 15.3 H, Plt Count 104 L, Immature Gran % (Auto) 0.4, Neut % (Auto) 75.5, Lymph % (Auto) 14.5, [place] % (Auto) 7.9, Eos % (Auto) 1.5, Baso % (Auto) 0.2, Immature Gran # (Auto) 0.0, Neut # 3.4, Lymph # 0.7, [place] # 0.4, Eos # 0.1, Baso # 0.0, Sodium 141, Potassium 4.0, Chloride 108 H, Carbon Dioxide 26, Anion Gap 11.0, BUN 14, Creatinine 1.10, Estimated GFR ( MDRD) 57.00, BUN/Creatinine Ratio 12.72, Glucose 105, Calcium 8.8, Total Bilirubin 1.08, AST 33, ALT 65, Alkaline Phosphatase 106, Total Protein 4.9 L, Albumin 2.8 L, Globulin 2.1, Albumin/Globulin Ratio 1.33 PLAN: Discharge to [facility] Diet: Regular, pureed Regular type liquids Activity: up to the chair as tolerated. May go to dining room for meals. Speech and physical therapy evaluation Vital signs daily for 1 week, then weekly Incontinent care prn Decubitus care prn Labs: CBC, CMP in one week, then monthly Patient is a full code Ms. Gutierrez is alert to person and place. She is cooperative with care and follows instructions. She is able to transfer to the chair, BSC and to the bed with assistance of 1-2 staff members. She feeds herself with only minimal assistance required for opening containers. Meal intake 75-100%. She is incontinent of urine at times, but other times will ask for help to the bathroom. Skin is in good condition and free of decubitus, rashes or other irritation. Jeremiah Bahena MD Elvia Ocampo APRN
--- NOTE | 2017-01-27 08:35 | PN ---
DATE OF SERVICE: 01/25/17 SUBJECTIVE: The patient is an 81 year old black female hospitalized with UTI and change in the mental status. The patient has improved remarkably. She has been given Levofloxacin. REVIEW OF SYSTEMS: CONSTITUTIONAL: No night sweats. No fatigue, malaise, lethargy. No fever or chills. Mild dementia but oriented to person. Alert. HEENT: Eyes: No visual changes. No eye pain. No eye discharge. ENT: No runny nose. No epistaxis. No sinus pain. No sore throat. No odynophagia. No congestion. RESPIRATORY: No cough, no congestion. No hemoptysis. CARDIOVASCULAR: No angina symptoms. No CHF symptoms. No atypical chest pain for CAD. No palpitations. No shortness of breath. No PND. No Orthopnea. GASTROINTESTINAL: No abdominal pain. No nausea or vomiting. No diarrhea or constipation. No hematemesis. No hematochezia. Appetite has improve. GENITOURINARY: No urgency. No frequency. No dysuria. No hematuria. No obstructive symptoms. No discharge. No pain. No significant abnormal bleeding. MUSCULOSKELETAL: No musculoskeletal pain; no joint swelling. NEUROLOGICAL: No headache. No neck pain. No syncope. No seizures. No dizziness. PSYCHIATRIC: Not anxious. No depression. No suicidal thoughts. No homicidal thoughts. SKIN: No rash. No lesions. No wounds. ENDOCRINE: No unexplained weight loss. No weight gain. HEMATOLOGIC/LYMPHATIC: No anemia. No purpura. No petechiae. No prolonged or excessive bleeding. No palpable lymph nodes. PHYSICAL EXAMINATION: GENERAL: The patient is alert. VITAL SIGNS: Temperature 98, pulse 75, respiratory rate 16, blood pressure 93/ 53 and pulse ox 95%. HEENT: Head normocephalic, atraumatic. Eyes: Extraocular muscles are intact. Pupils are equal, round and reactive to light and accommodation. Ears: No lesions. Nose appeared normal. Throat: No exudate or erythema. NECK: Supple. No JVD, no carotid bruit. No lymphadenopathy or thyromegaly. LUNGS: Decreased breath sounds but clear to auscultation. Percussion note normal. Chest symmetrical. HEART: S1, S2, no S3. No murmurs. No cyanosis or clubbing. No ascites. Pulses: Dorsalis pedis and posterior tibial pulses +1 to +2 both sides. ABDOMEN: Soft. Nontender. Bowel sounds active. No CVA tenderness. No mass felt. EXTREMITIES: No edema. Full range of motion of all extremities, equal. NEUROLOGIC: No focal deficit. Cranial nerves II through XII are grossly intact. No headache, no double vision or headache. SKIN: Not dry. Intact. Turgor - normal. LYMPHATIC: No palpable lymph nodes/no lymphedema. MUSCULOSKELETAL: Normal joints with no swelling. Muscle tone is normal. LABS: Hgb 10.6, hct 31, WBC 4,200 normal differential, creatinine 1, BUN 16, potassium 3.8 ASSESSMENT: 1. UTI 2. Dementia, stable worsening. 3. Coronary artery disease 4. CHF PLAN: 1. Continue IV antibiotics 2. Continue IV fluids 3. Watch for fluid overload TIME SPENT: More than 30 minutes. Plan and coordination of the patient's care discussed in the presence of nurse. SUDHIR
--- NOTE | 2017-01-27 09:33 | PN ---
DATE OF SERVICE: 01/26/17 SUBJECTIVE: The patient is a 81 year old black female hospitalized with UTI and change in the mental status. The patient has improved remarkably. Confusion has improved and she still confused but she is oriented to person. She is able to take steps with the help. The patient was seen and examined with Nurse Practitioner. REVIEW OF SYSTEMS: CONSTITUTIONAL: No night sweats. No fatigue, malaise, lethargy. No fever or chills. HEENT: Eyes: No visual changes. No eye pain. No eye discharge. ENT: No runny nose. No epistaxis. No sinus pain. No sore throat. No odynophagia. No congestion. RESPIRATORY: No cough, no congestion. No hemoptysis. CARDIOVASCULAR: No angina symptoms. No CHF symptoms. No atypical chest pain for CAD. No palpitations. No shortness of breath. GASTROINTESTINAL: No abdominal pain. No nausea or vomiting. No diarrhea or constipation. No hematemesis. No hematochezia. GENITOURINARY: No urgency. No frequency. No dysuria. No hematuria. No obstructive symptoms. No discharge. No pain. No significant abnormal bleeding. MUSCULOSKELETAL: No musculoskeletal pain; no joint swelling. NEUROLOGICAL: No headache. No neck pain. No syncope. No seizures. No dizziness. PSYCHIATRIC: Not anxious. No depression. No suicidal thoughts. No homicidal thoughts. SKIN: No rash. No lesions. No wounds. ENDOCRINE: No unexplained weight loss. No weight gain. HEMATOLOGIC/LYMPHATIC: No anemia. No purpura. No petechiae. No prolonged or excessive bleeding. No palpable lymph nodes. PHYSICAL EXAMINATION: GENERAL: The patient is still confused but she is oriented to person VITAL SIGNS: Stable, afebrile. HEENT: Head normocephalic, atraumatic. Eyes: Extraocular muscles are intact. Pupils are equal, round and reactive to light and accommodation. Ears: No lesions. Nose appeared normal. Throat: No exudate or erythema. NECK: Supple. No JVD, no carotid bruit. No lymphadenopathy or thyromegaly. LUNGS: Clear to auscultation. Percussion note normal. Chest symmetrical. HEART: S1, S2, no S3. No murmurs. No cyanosis or clubbing. No ascites. Pulses: Dorsalis pedis and posterior tibial pulses +1 to +2 both sides. No evidence of fluid overload. ABDOMEN: Soft. Nontender. Bowel sounds active. No CVA tenderness. No mass felt. EXTREMITIES: No edema. Full range of motion of all extremities, equal. NEUROLOGIC: No focal deficit. Cranial nerves II through XII are grossly intact. No headache, no double vision or headache. SKIN: Not dry. Intact. Turgor - normal. LYMPHATIC: No palpable lymph nodes/no lymphedema. MUSCULOSKELETAL: Normal joints with no swelling. Muscle tone is normal. LABS: Hgb 11.1, hct 33, WBC 4,500 normal differential, creatinine 1.1, BUN 15, potassium 4. CONDITION: Stable TIME SPENT: More than 30 minutes. Plan and coordination of the patient's care discussed in the presence of nurse. SUDHIR
--- NOTE | 2017-01-27 09:34 | PN ---
01/23/17: Level 5 01/24/17: Intermediate 01/25/17: Intermediate 01/26/17: D as in discharge MTDD
--- NOTE | 2017-01-28 14:41 | PN ---
DATE OF SERVICE: 01/24/17 SUBJECTIVE: The patient is looking better. The patient is an 81 year old black female hospitalized with mental status change. The patient very likely had a urinary tract infection according to the doctor. The mental status is a lot better. She is alert knows the daughter but doesn't recall who I am. The patient was seen and examined by nurse practitioner. According to the daughter the day prior to the hospitalization the patient was able to walk with the help with the walking , eating good and probably normally functioning except for a lot of ADL's she is not able to do it so the daughter saw a lot of changes yesterday when she was hospitalized. Today the daughter feels like she is on her way to recovery with more alertness and her appetite has improved and her hydration status seems to have improved. REVIEW OF SYSTEMS: CONSTITUTIONAL: No night sweats. No fatigue, malaise, lethargy. No fever or chills. HEENT: Eyes: No visual changes. No eye pain. No eye discharge. ENT: No runny nose. No epistaxis. No sinus pain. No sore throat. No odynophagia. No congestion. RESPIRATORY: No cough, no congestion. No hemoptysis. CARDIOVASCULAR: No angina symptoms. No CHF symptoms. No atypical chest pain for CAD. No palpitations. No shortness of breath. GASTROINTESTINAL: No abdominal pain. No nausea or vomiting. No diarrhea or constipation. No hematemesis. No hematochezia. GENITOURINARY: No urgency. No frequency. No dysuria. No hematuria. No obstructive symptoms. No discharge. No pain. No significant abnormal bleeding. MUSCULOSKELETAL: No musculoskeletal pain; no joint swelling. NEUROLOGICAL: No headache. No neck pain. No syncope. No seizures. No dizziness. PSYCHIATRIC: Not anxious. No depression. No suicidal thoughts. No homicidal thoughts. SKIN: No rash. No lesions. No wounds. ENDOCRINE: No unexplained weight loss. No weight gain. HEMATOLOGIC/LYMPHATIC: No anemia. No purpura. No petechiae. No prolonged or excessive bleeding. No palpable lymph nodes. PHYSICAL EXAMINATION: GENERAL: The patient is alert oriented to person. VITAL SIGNS: Temperature 94.8, pulse 70, respiratory rate 16, blood pressure 130/78 and pulse ox 98%. HEENT: Head normocephalic, atraumatic. Eyes: Extraocular muscles are intact. Pupils are equal, round and reactive to light and accommodation. Ears: No lesions. Nose appeared normal. Throat: No exudate or erythema. NECK: Supple. No JVD, no carotid bruit. No lymphadenopathy or thyromegaly. LUNGS: Decreased breath sounds but clear.Percussion note normal. Chest symmetrical. HEART: S1, S2, no S3. No murmurs. No cyanosis or clubbing. No ascites. Pulses: Dorsalis pedis and posterior tibial pulses +1 to +2 both sides. ABDOMEN: Soft. Nontender. Bowel sounds active. No CVA tenderness. No mass felt. EXTREMITIES: No edema. Full range of motion of all extremities, equal. NEUROLOGIC: No focal deficit. Cranial nerves II through XII are grossly intact. No headache, no double vision or headache. SKIN: Not dry. Intact. Turgor - normal. LYMPHATIC: No palpable lymph nodes/no lymphedema. MUSCULOSKELETAL: Normal joints with no swelling. Muscle tone is normal. LABS: Hgb 11.8, hct 35, WBC 3,900 normal differential, creatinine 1.2, BUN 21, potassium 4.2, glucose 72. ASSESSMENT: 1. Dementia, worsening periodically. This time it could be urinary tract infection. Urine cultures waiting. Levofloxacin to be given daily. PLAN: 1. Change the IV fluids to D5 2. Will continue to infuse the fluid at slower rate and watch for fluid overload CONDITION: Stable. TIME SPENT: More than 30 minutes. Plan and coordination of the patient's care discussed in the presence of nurse. SUDHIR
--- NOTE | 2017-02-03 14:33 | DS ---
DATE OF SERVICE: 01/26/17 FINAL DIAGNOSIS: 1. ALTERED MENTAL STATUS 2. URINARY TRACT INFECTION 3. CHRONIC RIGHT PARIETAL INFARCT 4. DEMENTIA 5. DIABETES, TYPE 2 6. HYPERTENSION 7. DYSLIPIDEMIA 8. CORONARY ARTERY DISEASE 9. STENT APPLICATION 10. DJD SPINE 11. CKD STAGE 3 12. L4 COMPRESSION FRACTURE 13. PACEMAKER DISCHARGE INSTRUCTIONS: 1. Discharge to [facility]. 2. Vital signs daily for one week then weekly 3. Incontinent care p.r.n. 4. Decubitus care p.r.n. 5. Labs - CBC, CMP in one week then monthly MEDICATIONS AT DISCHARGE: 1. Alprazolam (Xanax) 0.25 mg p.o. bedtime 2. Alprazolam (Xanax) 0.5 mg p.o. p.r.n. 3 Aspirin 81 mg p.o. daily with meal 4. Atorvastatin (Lipitor) 20mg p.o. bedtime 5. Calcium Carbonate/Vitamin D3 one each p.o. daily 6. Carvedilol 3.125 mg p.o. daily 7. Clopidogrel 75 mg p.o. daily 8. Furosemide (Lasix) 40 mg p.o. daily 9. Guaifeesin 100 mg/5 mL liquid 10 mL p.o. q.4hr p.r.n. 10. Hydrocodone/Acetaminophen one each p.o. b.i.d. 11. Ipratropium/Albuterol one vial neb RT b.i.d. 12. Lisinopril (Zestril) 2.5 mg p.o. daily 13. Memantine 10 mg p.o. b.i.d. 14. Nitroglycerin 0.4 mg SL p.r.n. 15. Pantoprazole 40 mg p.o. b.i.d. a.c. 16. Sucralfate 1 gm p.o. a.c. h.s. NEW PRESCRIPTIONS: 1. Levaquin 250 mg daily for 7 days. 2. Prednisone 10 mg daily for 5 days (this is a decrease in the previous dose) DIET INSTRUCTIONS: Regular, pureed; regular type liquids. ACTIVITY: Up to chair as tolerated. May go to dining room for meals. Speech and physical therapy evaluation. SMOKING: N/A DISEASE SPECIFIC EDUCATION: The patient has dementia; not applicable. HOSPITAL COURSE: This is an 81-year-old female, who is brought into the emergency room from [facility] with mental status change and questionable left-sided weakness. Upon evaluation in the emergency room, a CT scan of the brain was conducted, which showed chronic right parietal infarct. A urinalysis showed trace bacteria, trace leuks, negative for nitrites. She was started on Levaquin 250 mg q.24hr IV. She was a full code. She was given IV fluids. Within 24 hours after admission to the [facility] where she had been placed on routine telemetry orders with 24 hour telemetry, daily CBC and CMP. Due to her history of pacermaker and atrial fibrillation she was also placed on Lovenox daily. Within 24 hours, the patient was examined the next morning and her confusion had already improved her left-sided weakness. She had full range of motion of her left arm and was already doing remarkably better. Over the course of her hospital stay, her kidney function improved and on the day of discharge BUN 14, creatinine 1.1, sodium 141, potssium 4.0. White count 11.1 and hematocrit 33.6. Urine culture was negative today on daily of discharge. This morning she was sitting up in her chair, she was fully alert and oriented. She had eaten 100% of her breakfast, stated she had been feeling much better. She does have chronic lung disease for which she was placed on Duonebs and had previously been hospitalized three weeks ago and was still taking Prednisone 10 mg p.o. for residual pneumonia, which has now resolved as well. This morning she was fully aware, stated that she was ready to go back to the care home. She denied experiencing any dysuria. She remained afebrile during the course of her hospital stay and thus previously stated her acute confusion had improved remarkably within 24 hours of admission. She will be discharged today back home to [facility]. We will continue her on Levaquin 500 mg p.o. daily along with Prednisone 10 mg daily for 5 days. We will continue to monitor her at the care home and she will resume her previous home medications. Vital signs on the day of discharge: Temperature 96.6, pulse 70, respirations 20 , BP 104/59, pulse ox 96% on room air. We will do a CBC and CMP in one week. Will do vital signs daily for one week at the care home. She was cooperative with care and follows instructions. She had transferred herself to the chair and bedside commode on the day of discharge and again had been eating 75 to 100% of her meals. We will follow her as needed. The patient is a full code. TIME SPENT: More than 60 minutes. SUDHIR
== END 2017-01-26 14:10 | DRG 947 ==
LOC: ED 19:46 → SCU 22:39
PROVIDERS: ADMIT Internal Medicine; ATTEND Internal Medicine
DX: R41.82 Altered mental status, unspecified (principal); I63.50 Cerebral infarction due to unspecified occlusion or stenosis of unspecified cerebral artery; N30.00 Acute cystitis without hematuria; F05 Delirium due to known physiological condition; E11.9 Type 2 diabetes mellitus without complications; R60.0 Localized edema; I10 Essential (primary) hypertension; F03.90 Unspecified dementia, unspecified severity, without behavioral disturbance, psychotic disturbance, mood disturbance, and anxiety; E78.5 Hyperlipidemia, unspecified; I25.10 Atherosclerotic heart disease of native coronary artery without angina pectoris; M47.9 Spondylosis, unspecified; I12.9 Hypertensive chronic kidney disease with stage 1 through stage 4 chronic kidney disease, or unspecified chronic kidney disease; E11.22 Type 2 diabetes mellitus with diabetic chronic kidney disease; N18.3 Chronic kidney disease, stage 3 (moderate); Z95.820 Peripheral vascular angioplasty status with implants and grafts; Z95.0 Presence of cardiac pacemaker; I25.2 Old myocardial infarction; Z86.73 Personal history of transient ischemic attack (TIA), and cerebral infarction without residual deficits; Z79.01 Long term (current) use of anticoagulants; Z79.899 Other long term (current) drug therapy
CPT/HCPCS: 36415; 80053; 81001; 82550; 82962; 83605; 84145; 84484; 85025; 87040; 87081; 93005; 93010; 94640; 96361; 96365; 99284

== ENCOUNTER 2017-02-03 13:31 | Emergency (ER) ==
[2017-02-03 13:48] VITALS: BP 127/79; TEMP 99.1; BMI 28.3
--- NOTE | 2017-02-03 14:50 | ED.PDOC ---
General ED Provider: Dr. JINA CALL Chief Complaint: Altered Mental Status Stated Complaint: Back from hospital; change in MS - doesn't want to open eyes. Speach unclear. Not usual self. Time Seen by Physician: 14:40 Mode of Arrival: Walk-In Information Source: Family, Care Home Primary Care Provider: MARK WATSON Nursing and Triage Documentation Reviewed and Agree: Yes Review of Systems - Review Of Systems Constitutional: Reports: No symptoms Eyes: Reports: Photophobia (questionable; keeps eyes closed. Resists pupilary exam) Neurological: Reports: Other (Change in usual baseline 2 days) All Other Systems: Reviewed and Negative Past Medical History - Past Medical History Previously Healthy: No Endocrine: Reports: DM 2, Dyslipidemia Cardiovascular: Reports: CAD, [place], Hypertension, CHF, Other (12/10/15 seen at [facility]- noncardiac chest pain) Respiratory: Reports: COPD Hematological: Reports: Anemia Gastrointestinal: Reports: GERD Genitourinary: Reports: Kidney stones, CKD Neuro/Psych: Reports: CVA (Multiple mini stroke in the past. ), Anxiety, Dementia Musculoskeletal: Reports: Arthritis Cancer: Reports: None Last Menstrual Period: unknown Other Pertinent Past Medical History: NEUROPATHY,BORDERLINE DIABETES,WITH ACCU CHECKS DAILY - Surgical History General Surgical History: Reports: Hysterectomy, Cholecystectomy, Pacemaker ( PACEMAKER 1998 WITH BATTERY CHANGE X2 AT [facility], MOST RECENT IS FEBRUARY 2015), Orthopedic (left knee), Other (BILATEREAL CATARACT ) - Family History Family History: Reports: Unknown - Social History Smoking Status: Never smoker Hx Substance Use: No Alcohol Screening: None Physical Exam - Physical Exam Appearance: Ill-appearing Ill-appearing: Mild Eyes: GERARDO, Right pupil size (4 mm), Left pupil size (4 mm) Respiratory: Airway patent, Breath sounds clear, Breath sounds equal, Respirations nonlabored Cardiovascular: RRR, Pulses normal GI/: Soft, Nontender, No masses, Bowel sounds normal Skin: Warm, Dry, Normal color Neurological: Sensation intact Psychiatric: Affect appropriate (uanble to evaluate) Physician Notification - Case Discussed Physician Notified: Dr. Watson Time of Notification: 16:39 (Discussed findings; can go back to OR) Critical Care Note - Critical Care Note Total Time (mins): 35 Course - Course Hematology/Chemistry: 02/03/17 14:44 02/03/17 15:20 Orders, Labs, Meds: Lab Review 02/03/17 02/03/17 14:44 15:20 WBC 4.05 L RBC 3.66 L Hgb 12.6 Hct 37.3 MCV 101.9 H MCH 34.4 H MCHC 33.8 RDW Coeff of Juan 15.2 H Plt Count 152 Immature Gran % (Auto) 0.5 Neut % (Auto) 47.7 Lymph % (Auto) 37.3 [place] % (Auto) 12.3 H Eos % (Auto) 1.5 Baso % (Auto) 0.7 Immature Gran # (Auto) 0.0 Neut # 1.9 L Lymph # 1.5 [place]yth # 0.5 Eos # 0.1 Baso # 0.0 Sodium 144 Potassium 3.8 Chloride 103 Carbon Dioxide 29 Anion Gap 15.8 BUN 26 H Creatinine 1.38 H Estimated GFR (MDRD) 44.00 BUN/Creatinine Ratio 18.84 Glucose 83 Calcium 9.3 Total Bilirubin 1.09 AST 51 H ALT 67 Alkaline Phosphatase 127 Total Protein 5.5 L Albumin 3.1 L Globulin 2.4 Albumin/Globulin Ratio 1.29 Urine Color Yellow Urine Clarity Clear Urine pH 8.0 Ur Specific Victor 1.015 Urine Protein Negative Urine Glucose (UA) Negative Urine Ketones Negative Urine Blood Negative Urine Nitrite Negative Urine Bilirubin Negative Urine Urobilinogen 1.0 Ur Leukocyte Esterase Negative Orders Category Date Time Status CBC W/ AUTO DIFF Stat LAB 02/03/17 14:44 Completed COMPREHENSIVE METABOLIC PANEL Stat LAB 02/03/17 15:20 Completed URINALYSIS C & S IF INDICATED Stat LAB 02/03/17 15:[address] HEAD W/O CONTRAST Stat RADS 02/03/17 15:34 Completed Vital Signs: Temp Pulse Resp BP Pulse Ox 02/03/17 13:34 99.1 F 70 20 127/79 96 Departure - Departure Time of Disposition: 16:44 Disposition: HOME SELF-CARE Discharge Problem: Lethargy Instructions: Weakness (ED) Condition: Stable Pt referred to PMD for follow-up: Yes (Call for follow up appointment) Additional Instructions: Resume usual medicaitons; call primary care tomorrow and let them know how she is doing. Allergies/Adverse Reactions: Allergies Penicillins Adverse Reaction (Verified 02/03/17 13:43) pneumococcal vaccine Adverse Reaction (Verified 02/03/17 13:43) flu vaccine Adverse Reaction (Unknown, Uncoded 11/15/16 18:47) Home Medications: Ambulatory Orders Alprazolam [Xanax] 0.25 mg PO BEDTIME 02/11/16 Clopidogrel Bisulfate [Clopidogrel] 75 mg PO DAILY 02/11/16 Furosemide [Lasix] 40 mg PO DAILY 02/11/16 Pantoprazole Sodium [Protonix] 40 mg PO BIDAC 02/11/16 Sucralfate [Carafate] 1 gm PO ACHS 02/11/16 Aspirin [Aspirin EC] 81 mg PO DAILYWM 02/12/16 Nitroglycerin [Nitrostat] 0.4 mg SL PRN PRN 03/08/16 Hydrocodone/Acetaminophen [[place] 5-325 Tablet] 1 each PO BID 05/11/16 Lisinopril [Zestril] 2.5 mg PO DAILY #30 tablet 05/12/16 Carvedilol 3.125 mg PO DAILY 09/04/16 Alprazolam [Xanax] 0.25 mg PO PRN PRN 11/15/16 Memantine HCl 10 mg PO BID 11/15/16 Atorvastatin Calcium [Lipitor] 20 mg PO BEDTIME 12/30/16 Calcium Carbonate/Vitamin D3 [Oyster Shell Calcium-Vit D Tab] 1 each PO DAILY Guaifenesin 10 ml PO Q4HR PRN 12/30/16 Bisacodyl [Dulcolax] 10 mg RC ONCE PRN 02/03/17 Ipratropium/Albuterol Neb [Duoneb] 1 vial NEB RTBID PRN 02/03/17 Magnesium Hydroxide [Milk of Magnesia] 30 ml PO ONCE PRN 02/03/17 Rosuvastatin Calcium [Crestor] 10 mg PO BEDTIME 02/03/17 Disposition Discussed With: Patient
[2017-02-03 15:12] LABS: BASOPHILS % (AUTO) 0.7 % (0.0-3.0); EOSINOPHILS # (AUTO) 0.1 K/ul (0.0-0.7); EOSINOPHILS % (AUTO) 1.5 % (0.0-7.0); HEMATOCRIT 37.3 % (37.0-47.0); HEMOGLOBIN 12.6 g/dl (12.0-16.0); IMMATURE GRANULOCYTE % (AUTO) 0.5 % (0.0-5.0); LYMPHOCYTES # (AUTO) 1.5 K/uL (0.60-3.4); LYMPHOCYTES % (AUTO) 37.3 (10.0-50.0); MEAN CORPUSCULAR HEMOGLOBIN 34.4 pg (27.0-31.0); MEAN CORPUSCULAR HGB CONC 33.8 (31.8-35.4); MEAN CORPUSCULAR VOLUME 101.9 fl (81.0-99.0); MONOCYTES # (AUTO) 0.5 K/uL (0.4-2.0); MONOCYTES % (AUTO) 12.3 (0-10); NEUTROPHILS # (AUTO) 1.9 K/ul (2.0-6.9); NEUTROPHILS % (AUTO) 47.7; PLATELET COUNT 152 10^3/uL (140-440); RED BLOOD COUNT 3.66 10^6/ul (4.20-5.40); WHITE BLOOD COUNT 4.05 K/ul (4.6-10.2)
[2017-02-03 15:30] LABS: ADD URINE MICROSCOPIC NO; BILIRUBIN,URINE NEGATIVE (NEGATIVE); KETONES,URINE NEGATIVE (NEGATIVE); LEUKOCYTE ESTERASE ,URINE NEGATIVE (NEGATIVE); NITRITE,URINE NEGATIVE (NEGATIVE); PROTEIN,URINE NEGATIVE (NEGATIVE); URINE, BLOOD NEGATIVE (NEGATIVE)
[2017-02-03 15:45] LABS: ALBUMIN 3.1 g/dL (3.4-5.0); ALBUMIN/GLOBULIN RATIO 1.29; ANION GAP 15.8; BILIRUBIN,TOTAL 1.09 mg/dL (0.00-1.20); BUN/CREATININE RATIO 18.84; CALCIUM 9.3 mg/dL (8.2-10.2); CREATININE 1.38 mg/dL (0.60-1.30); POTASSIUM 3.8 mmol/L (3.5-5.10); TOTAL PROTEIN 5.5 g/dL (5.8-8.1)
--- NOTE | 2017-02-03 16:08 | CT ---
EXAM: CT BRAIN HISTORY: Altered mental status, headache TECHNIQUE: CT brain without intravenous contrast. 5-mm axial sections with Reformations. COMPARISON: 01/23/2017 FINDINGS: There is generalized atrophy. Moderate chronic microvascular ischemic change is suggested. Mild ve ntriculomegaly, likely compensatory to the involutional changes. These findings are stable. Brain o therwise is unremarkable without distinct evidence of hemorrhage or large vessel distribution recent ischemic infarction. There is no suggestion of acute hydrocephalus or subdural fluid collection. No mass or mass effect. Cranium is within normal limits. Mastoid air cells are aerated. The visualized paranasal sinuses are clear. IMPRESSION: Stable involutional changes. No acute intracranial process.
== END 2017-02-03 17:02 | disposition home or self-care (01) ==
LOC: ED 13:31
DX: R53.83 Other fatigue (principal); R41.82 Altered mental status, unspecified; E11.9 Type 2 diabetes mellitus without complications; E78.5 Hyperlipidemia, unspecified; I25.10 Atherosclerotic heart disease of native coronary artery without angina pectoris; I25.2 Old myocardial infarction; I10 Essential (primary) hypertension; I50.9 Heart failure, unspecified; J44.9 Chronic obstructive pulmonary disease, unspecified; N18.3 Chronic kidney disease, stage 3 (moderate); D63.1 Anemia in chronic kidney disease; F03.90 Unspecified dementia, unspecified severity, without behavioral disturbance, psychotic disturbance, mood disturbance, and anxiety; M19.90 Unspecified osteoarthritis, unspecified site; Z95.0 Presence of cardiac pacemaker; Z79.899 Other long term (current) drug therapy; Z87.19 Personal history of other diseases of the digestive system; Z86.73 Personal history of transient ischemic attack (TIA), and cerebral infarction without residual deficits
CPT/HCPCS: 36415; 80053; 81001; 85025; 99283

== ENCOUNTER 2017-02-04 11:10 | Outpatient (CLI) ==
[2017-02-03 13:48] VITALS: BMI 28.3
== END 2017-02-04 11:11 | disposition home or self-care (01) ==
LOC: AMBL 11:10
PROVIDERS: ATTEND Internal Medicine
DX: R41.0 Disorientation, unspecified (principal); R53.1 Weakness

== ENCOUNTER 2017-02-15 16:25 | Outpatient (CLI) | END 2017-02-15 16:26 | LOC: AMBL 16:25 | PROVIDERS: ATTEND Internal Medicine | DX: R41.82 Altered mental status, unspecified (principal); R41.0 Disorientation, unspecified; R40.2411 Glasgow coma scale score 13-15, in the field [EMT or ambulance] ==

== ENCOUNTER 2017-02-22 14:58 | Outpatient (CLI) | END 2017-02-22 14:59 | LOC: AMBL 14:58 | PROVIDERS: ATTEND Internal Medicine | DX: F03.91 Unspecified dementia, unspecified severity, with behavioral disturbance (principal) ==

== ENCOUNTER 2017-03-07 18:58 | Emergency (ER) ==
[2017-03-07 19:07] VITALS: BP 112/61; TEMP 98.1; BMI 28.9
[2017-03-07] MEDS ORDERED: NORCO 5-325 PO STA (19:20)
[2017-03-07] MEDS ORDERED: LIDOCAINE 1 % AMP 5 ML (SUTURES) SQ STA (19:21)
--- NOTE | 2017-03-07 19:55 | ED.PDOC ---
General ED Provider: Dr. LUCIA COLUNGA Chief Complaint: Fall Stated Complaint: Judy is an 81 year old female who has dementia and lives in the [facility] who was noted to have fallen out of the wheelchair landing on her forehead sustaining a laceation with some bleeding. There was no loss of conciousness. Time Seen by Physician: 19:53 Mode of Arrival: Ambulance Information Source: Patient, Family, EMT, Nurse Exam Limitations: No limitations Primary Care Provider: MARK WATSON Nursing and Triage Documentation Reviewed and Agree: Yes Trauma/Injury Complaint Exam - Head Injury Complaint/Exam Location of Pain: Reports: Right, Forehead Mechanism of Injury: Reports: Trauma Onset/Duration: 40 min Symptoms Are: Still present Initial Severity: Severe Current Severity: Moderate Character: Reports: Throbbing Aggravating: Reports: None Alleviating: Reports: None Associated Signs and Symptoms: Reports: Neck pain. Denies: Confusion, Memory loss, Seizure, Epistaxis, Dental malocclusion, Nausea, Vomiting Loss of Consciousness: None Related History: Reports: Similar episode SDH Risk Factors: Present: Elderly, Anticoagulant use Cervical Spine Injury Risk Factors: Present: None Related Surgical History: Reports: None C-Collar in Place: no Immobilization Removed Post Exam: No Head Injury Findings: Present: Hemotympanum Glascow Coma Scale (see protocol): 14 Focal Weakness: Present: None Focal Sensory Loss: Present: None Gait: Unable Gag Reflex Present: Yes Head Picture: 1 - 3 cm Differential Diagnoses: Intracranial Bleed, Sprain, Strain, Trauma Review of Systems - Review Of Systems Constitutional: Reports: No symptoms Eyes: Reports: No symptoms Ears, Nose, Mouth, Throat: Reports: No symptoms Respiratory: Reports: No symptoms Cardiac: Reports: No symptoms GI: Reports: No symptoms Musculoskeletal: Reports: Joint pain (pelvic pain), Neck pain Skin: Reports: Bruising Neurological: Reports: Anxiety, Headache All Other Systems: Reviewed and Negative Past Medical History - Past Medical History Previously Healthy: No Endocrine: Reports: DM 2, Dyslipidemia Cardiovascular: Reports: CAD, [place], Hypertension, CHF, Other (12/10/15 seen at [facility]- noncardiac chest pain) Respiratory: Reports: COPD Hematological: Reports: Anemia Gastrointestinal: Reports: GERD Genitourinary: Reports: Kidney stones, CKD Neuro/Psych: Reports: CVA (Multiple mini stroke in the past. ), Anxiety, Dementia Musculoskeletal: Reports: Arthritis Cancer: Reports: None Last Menstrual Period: 1974 Other Pertinent Past Medical History: NEUROPATHY,BORDERLINE DIABETES,WITH ACCU CHECKS DAILY - Surgical History General Surgical History: Reports: Hysterectomy, Cholecystectomy, Pacemaker ( PACEMAKER 1998 WITH BATTERY CHANGE X2 AT [facility], MOST RECENT IS FEBRUARY 2015), Orthopedic (left knee), Other (BILATEREAL CATARACT ) - Family History Family History: Reports: Unknown - Social History Smoking Status: Never smoker Hx Substance Use: No Alcohol Screening: None - Immunizations Tetanus Shot up to Date: No Physical Exam - Physical Exam Appearance: Ill-appearing Pain Distress: Moderate Eyes: GERARDO, EOMI, Conjunctiva clear Neck: Supple Respiratory: Airway patent, Breath sounds clear Cardiovascular: RRR GI/: Soft, Nontender Musculoskeletal: Normal strength Skin: Warm, Dry Neurological: Sensation intact, Motor intact Interpretation - Radiology Interpretation Radiology Interpretation By: Radiologist Radiology Results: No acute changes Exam Interpreted: CT Scan (Head, cervical spine and pelvis.) Procedures - Laceration/Wound Repair Facial Laceartion Wound Description: Irregular Wound Length (cm): 3 Wound Width: 1 Wound Depth: 1 Wound Explored: Clean Wound Irrigated: Yes Wound Prep: Hibiclens Anesthesia: Lidocaine Wound Repaired With: Sutures Suture Size and Type: 4.O ethlone Number of Sutures: 9 (Running ) Sterile Dressing Applied?: Yes Progress: Tolerated procedure well Re-Evaluation - Re-Evaluation Time of Re-Evaluation: 20:20 Status: Improved Vital Signs Stable: Yes Appearance: NAD Skin: Warm and Dry Critical Care Note - Critical Care Note Total Time (mins): 20 Course - Course Orders, Labs, Meds: Orders Category Date Time Status Hydrocodone Bit/Acetaminophen [[place] 5-325] MEDS 03/07/17 19:20 Discontinued 1 tab PO ONCE STA Lidocaine HCl/Pf [Lidocaine 1 % Amp 5 ml (Sutures)] MEDS 03/07/17 19:21 Discontinued 5 ml SQ ONCE STA CT CERVICAL SPINE W/O CONTRAST Stat RADS 03/07/17 19:[address] HEAD W/O CONTRAST Stat RADS 03/07/17 19:[address] PELVIS W/O CONTRAST Stat RADS 03/07/17 19:27 Completed Medications Discontinued Medications Generic Name Dose Route Start Last Admin Trade Name Freq PRN Reason Stop Dose Admin Acetaminophen/Hydrocodone Bitart 1 tab 03/07/17 19:20 03/07/17 19:47 [place] 5-325 PO 03/07/17 19:21 1 tab ONCE STA Administration Lidocaine HCl 5 ml 03/07/17 19:21 03/07/17 19:49 Lidocaine 1 % Amp 5 Ml (Sutures) SQ 03/07/17 19:22 5 ml ONCE STA Administration Vital Signs: Temp Pulse Resp BP Pulse Ox 03/07/17 19:00 98.1 F 86 18 112/61 96 Departure - Departure Time of Disposition: 20:49 Disposition: HOME SELF-CARE Discharge Problem: Falls Laceration of forehead without complication Qualifiers: Encounter type: initial encounter Qualifier Code: (S01.81XA) Laceration without foreign body of other part of head, initial encounter Instructions: Facial Laceration (ED) Condition: Fair Pt referred to PMD for follow-up: Yes Additional Instructions: Have suture removed in 7-10 days Follow up with PCP in 3-5 days Allergies/Adverse Reactions: Allergies Penicillins Adverse Reaction (Verified 03/07/17 19:08) pneumococcal vaccine Adverse Reaction (Verified 03/07/17 19:08) flu vaccine Adverse Reaction (Unknown, Uncoded 03/07/17 19:08) Home Medications: Ambulatory Orders Alprazolam [Xanax] 0.25 mg PO BEDTIME 02/11/16 Clopidogrel Bisulfate [Clopidogrel] 75 mg PO DAILY 02/11/16 Pantoprazole Sodium [Protonix] 40 mg PO BIDAC 02/11/16 Sucralfate [Carafate] 1 gm PO ACHS 02/11/16 Aspirin [Aspirin EC] 81 mg PO DAILYWM 02/12/16 Nitroglycerin [Nitrostat] 0.4 mg SL PRN PRN 03/08/16 Hydrocodone/Acetaminophen [[place] 5-325 Tablet] 1 each PO BID 05/11/16 Lisinopril [Zestril] 2.5 mg PO DAILY #30 tablet 05/12/16 Carvedilol 3.125 mg PO DAILY 09/04/16 Alprazolam [Xanax] 0.25 mg PO PRN PRN 11/15/16 Memantine HCl 10 mg PO BID 11/15/16 Atorvastatin Calcium [Lipitor] 20 mg PO BEDTIME 12/30/16 Calcium Carbonate/Vitamin D3 [Oyster Shell Calcium-Vit D Tab] 1 each PO DAILY Guaifenesin 10 ml PO Q4HR PRN 12/30/16 Bisacodyl [Dulcolax] 10 mg RC ONCE PRN 02/03/17 Ipratropium/Albuterol Neb [Duoneb] 1 vial NEB RTBID PRN 02/03/17 Magnesium Hydroxide [Milk of Magnesia] 30 ml PO ONCE PRN 02/03/17 Bumetanide [Bumex] 1 mg PO DAILY 03/07/17 Divalproex Sodium 125 mg PO DAILY 03/07/17 Nystatin 500,000 mg PO DAILY 03/07/17 Risperidone [Risperdal] 1 mg PO DAILY 03/07/17 Disposition Discussed With: Patient, Family
--- NOTE | 2017-03-07 20:12 | CT ---
EXAM: CT cervical spine without contrast HISTORY: Fall with neck pain TECHNIQUE: Multi-slice transaxial helical with coronal and sagittal reformatted views. COMPARISON: None FINDINGS: There is moderate diffuse narrowing of the intervertebral joint spaces. The bones are dif fusely osteopenic. The vertebrae maintain normal height and alignment. A right trans-subclavian du al chamber pacemaker is noted. No acute fractures or lithesis are observed. The prevertebral soft t issues have normal width. The facet alignment is appropriate. The images are acquired without orthog onal technique. There is suggestion of mild multilevel central canal stenosis. Multilevel neural f oramen stenosis is also detected. Moderate right greater than left pleural effusions are detected. IMPRESSION: 1. No acute fracture or lithesis. 2. Moderate diffuse degenerative disc disease. 3. Moderate right greater left pleural effusions. 4. Pacemaker. 5. Mild multilevel central canal stenosis and multilevel neural foramen stenosis also suggested.
--- NOTE | 2017-03-07 20:13 | CT ---
EXAM: CT pelvis without contrast HISTORY: Fall with pelvic pain TECHNIQUE: Multi-slice transaxial helical with coronal and sagittal reformed images COMPARISON: None FINDINGS: The femoral acetabular joint spaces are moderately narrowed. The bones are osteopenic. T here is mild osteophyte formation at the sacral joint spaces and pubic symphysis. There is a chroni c-appearing L4 compression fracture. Degenerative disc disease is noted in the lower lumbar spine. The body wall soft tissues are diffusely edematous. The visible pelvic organs are grossly normal. The bones are free of suspicious osteolytic or osteoblastic lesions. IMPRESSION: 1. Diffuse edema. 2. No acute fracture or subluxation. 3. 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 4. Osteopenia. 5. Chronic L4 lumbar compression deformity.
--- NOTE | 2017-03-07 20:31 | CT ---
EXAM: CT brain without contrast HISTORY: Fall with head injury TECHNIQUE: Multi-slice transaxial helical with coronal and sagital reformated images COMPARISON: CT brain from 02/03/2017 FINDINGS: The midline structures are central. The ventricles and sulci are slightly prominent refl ecting some atrophy. Mild low attenuation in the periventricular white matter is nonspecific but is likely related to chronic microvascular ischemic disease. No acute intraparenchymal or extraaxial h emorrhagic collections are detected. A cephalohematoma is detected adjacent to the anterior aspect of the intact right frontal bone. S cattered ethmoid air cells have thickened mucous membranes. The other imaged portions of the parana dario sinuses and mastoid air cells are clear. IMPRESSION: 1. No acute intracranial process. 2. Age related atrophy and small vessel disease. 3. Cephalohematoma adjacent to the intact right frontal bone. 4. Scattered ethmoid air cell disease.
== END 2017-03-07 22:32 | disposition home or self-care (01) ==
LOC: ED 18:58
DX: S01.81XA Laceration without foreign body of other part of head, initial encounter (principal); M54.2 Cervicalgia; H73.899 Other specified disorders of tympanic membrane, unspecified ear; R10.2 Pelvic and perineal pain; F03.90 Unspecified dementia, unspecified severity, without behavioral disturbance, psychotic disturbance, mood disturbance, and anxiety; W05.0XXA Fall from non-moving wheelchair, initial encounter
CPT/HCPCS: 96372; 99284